=== PATIENT | female | born 1950 | race Caucasian/White ===

== ENCOUNTER → 2021-01-14 01:54 | Outpatient (CLI) | payer MEDICARE, SELFPAY ==
[2021-01-14 19:28] LABS: SARS-CoV-2 RNA PCR Negative
== END ==
PROVIDERS: PCP Nurse Practitioner Family; Visit Provider Internal Medicine Gastroenterology
DX: Z01.812 Encounter for preprocedural laboratory examination (principal); Z20.822 Contact with and (suspected) exposure to COVID-19
CPT/HCPCS: C9803; U0003; U0005

== ENCOUNTER 2021-01-17 01:29 | Day surgery (SDC) | payer MEDICARE, SELFPAY ==
[2020-12-30 13:07] VITALS: BMI 23.4
[2021-01-17 06:42] VITALS: BP 131/85; PULSE 95; RESP 20; TEMP 36.6; O2SAT 99; BMI 23.6
[2021-01-17] MEDS: LACTATED RINGERS 1,000 ML 150 ML IV CONT (06:54)
--- NOTE | 2021-01-17 07:37 | WPDANESEPPF ---
Anes - Initial Pre Proc Eval Procedure: Operation Date: 01/17/21 08:00 Proposed Procedures p Esophagogastroduodenoscopy & Screening Colonoscopy - Abrahan Leal MD Date/Time: 01/17/21 07:37 Surgeon: Abrahan Leal MD Pre Op Diagnosis: Neoplasm Screening, Gastritis Patient Data Age: 70 Gender: F Height: 5 ft 1 in Weight: 56.8 kg Last Vital Signs Temp 97.9 F 01/17/21 06:42 Pulse 95 01/17/21 06:42 Resp 20 01/17/21 06:42 BP 131/85 01/17/21 06:42 Pulse Ox 99 01/17/21 06:42 Allergies Allergy/AdvReac Type Severity Reaction Status Date / Time No Known Allergies Allergy Verified 01/17/21 06:41 Home Medications Medication Instructions Recorded Confirmed Type omeprazole 40 mg PO DAILY 12/30/20 12/30/20 History Patient hx anesthesia problems: none Family hx anesthesia problems: none [facility] Past Medical History Medical History (Updated 01/17/21 @ 07:35 by Michael Zaragoza MD) GERD (gastroesophageal reflux disease) Social History Social History Smoking status: Never smoker Alcohol intake: current Alcohol use details: SOCIALLY Substance use: unknown Substance use type: unknown Living arrangements: with family Spiritual care concerns: No Anes - Eval Final PreProcedure Day of Procedure 01/17/21 07:37 Patient weight: normal Heart: regular rate and rhythm Lungs: clear to auscultation Airway: Mallampati scale class II Neurological: alert and oriented Last oral intake: >/= 8 hours ASA classification: II Emergent: no Anesthetic plan: proceed Anesthesia type and monitoring: general GIVS and standard monitoring Informed Consent: The patient's anesthetic plan and its attendant risks and benefits were discussed with the patient/family/POA. Questions were solicited and answers provided to the satisfaction of the patient/family/POA.
--- NOTE | 2021-01-17 07:50 | PM.HPGS ---
History of Present Illness History of Present Illness Consent: Risks, benefits, and alternatives have been discussed and questions answered. Patient agrees to proceed with procedure. Chief complaint: Neoplasm Screening, Gastritis Narrative: Rosario Davila is a 70 year old female with more GERD using omeprazole, also colon polyps ~ 2 years ago. Review of Systems Constitutional: Constitutional: Denies headache(s) and Denies weakness Eyes: Eyes: Denies blurry vision ENT: Reports Normal hearing present, Denies headache(s) and Denies neck pain Cardiovascular: Cardiovascular: Denies chest pain and Denies dyspnea Respiratory: Respiratory: Denies dyspnea Gastrointestinal: Gastrointestinal: Reports no additional gastrointestinal complaints Genitourinary: Genitourinary: Denies dysuria Musculoskeletal: Musculoskeletal: Denies neck pain Integumentary/Breasts: Skin/Breast: Denies dry skin Neurologic: Reports Normal hearing present, Denies headache(s) and Denies weakness Psychiatric: Psychiatric: Denies anxiety Endocrine: Endocrine: Denies change in body appearance Hematologic/Lymphatic: Hematologic/Lymphatic: Denies easy bleeding Allergic/Immunologic: Allergic/Immunologic: Denies urticaria PMFSH Past Medical History Medical History (Updated 01/17/21 @ 07:50 by Abrahan Leal MD) Adenomatous colon polyp GERD (gastroesophageal reflux disease) Social History Social History Smoking status: Never smoker Alcohol intake: current Alcohol use details: SOCIALLY Substance use: unknown Substance use type: unknown Living arrangements: with family Spiritual care concerns: No Meds Home Medications and Allergies Home Medications Medication Instructions Recorded Confirmed Type omeprazole 40 mg PO DAILY 12/30/20 12/30/20 History Allergies Allergy/AdvReac Type Severity Reaction Status Date / Time No Known Allergies Allergy Verified 01/17/21 06:41 Vital Signs Vital Signs - 24 hr 01/17/21 06:42 Temperature 97.9 F Pulse Rate 95 Respiratory Rate 20 Blood Pressure 131/85 Pulse Oximetry 99 Exam Const: General: comfortable and no acute distress HENMT: General nose exam: Normal nares present Eyes: General: appearance normal, both eyes and all related structures Neck: Neck: no JVD Resp: Auscultation: clear to auscultation bilaterally Cardio: Rate: regular rate Rhythm: regular rhythm GI: Inspection: non-distended GI Palp: Yes Soft to palpation Skin: General skin exam: normal color Neuro: General: gait normal Speech: normal speech Extrem: General: normal to inspection Psych: Mental Status: mental status grossly normal Assessment and Plan Assessment and plan (1) GERD (gastroesophageal reflux disease): Code(s): K21.9 - Gastro-esophageal reflux disease without esophagitis Status: Inactive Assessment and Plan: egd (2) Adenomatous colon polyp: Code(s): D12.6 - Benign neoplasm of colon, unspecified Status: Acute Assessment and Plan: colonoscopy
[2021-01-17 08:28] VITALS: BP 116/74; PULSE 88; RESP 13; O2SAT 98
[2021-01-17 08:38] VITALS: BP 142/82; PULSE 81; RESP 17; O2SAT 100
[2021-01-17 08:48] VITALS: BP 129/81; PULSE 77; RESP 14; O2SAT 100
== END 2021-01-17 09:00 | disposition home or self-care (01) ==
PROVIDERS: PCP Nurse Practitioner Family; Visit Provider Internal Medicine Gastroenterology
PROC: 0DJ08ZZ Inspection of Upper Intestinal Tract, Via Natural or Artificial Opening Endoscopic (ICD-10-PCS; CPT 43235; principal; 2021-01-17 08:00)
DX: Z12.11 Encounter for screening for malignant neoplasm of colon (principal); K57.30 Diverticulosis of large intestine without perforation or abscess without bleeding; K64.8 Other hemorrhoids; K21.9 Gastro-esophageal reflux disease without esophagitis; K44.9 Diaphragmatic hernia without obstruction or gangrene; K29.50 Unspecified chronic gastritis without bleeding
CPT/HCPCS: 43239; G0105; 88305; C9803; J2001; J2704; J7120; U0003; U0005

== ENCOUNTER 2024-04-14 06:35 | Outpatient (CLI) | payer MEDICARE, SELFPAY ==
--- NOTE | ~2024-04-14 | CT_ITS ---
CT abdomen pelvis w con Ordering provider: Veronica Garcia APRN History: 73 years Female with . RLQ pain, umbilical pain . Comparison: None. Technique: CT abdomen and pelvis with IV and without oral contrast. Radiation reduction technique uti lized. DLP is 245.77 mGy. Findings: VISUALIZED LOWER CHEST: Multiple patchy opacities in the right lung bases suggestive of pneumonia. UPPER ABDOMINAL ORGANS: Liver: Normal. Gallbladder: Status post cholecystectomy. Spleen: Normal. Stomach/duodenum: Sliding hiatus hernia. Pancreas: Normal. Adrenals: Normal. Kidneys: Normal. PELVIC ORGANS: The bladder is normal. BOWEL AND MESENTERY: Colon: No evidence of diverticulitis. Fecal material is loaded in the colon. The appendix is not demo nstrated. Small Bowel: Normal. No obstruction. Peritoneum/mesentery: No free air or free fluid. No mesenteric lymphadenopathy. RETROPERITONEUM: Mild atheromatous disease of the abdominal aorta. No retroperitoneal lymphadenopat hy. Small para-aortic lymph nodes are noted. MUSCULOSKELETAL: Superficial soft tissues: The superficial soft tissues are normal. Bones: Age appropriate degenerative changes of the spine. Pubic symphysitis.Attempt of sacralization of L5 with pseudoarthrosis on the right side. IMPRESSION: 1. Sliding hiatus hernia. 2. Constipation. 3. No evidence of appendicitis, diverticulitis or intestinal obstruction. Reviewed, dictated and finalized at location A.
[2024-04-14 07:07] LABS: Estimated Glomerular Filt Rate > 60
== END 2024-04-14 06:36 | disposition home or self-care (01) ==
PROVIDERS: PCP Internal Medicine; Visit Provider Nurse Practitioner
DX: R10.31 Right lower quadrant pain (principal); R10.33 Periumbilical pain; K44.9 Diaphragmatic hernia without obstruction or gangrene; K59.00 Constipation, unspecified
CPT/HCPCS: 74177; Q9967

== ENCOUNTER 2024-04-17 07:18 | Day surgery (SDC) | payer MEDICARE, SELFPAY ==
[2024-04-11 10:35] VITALS: BMI 25.2
[2024-04-11 11:52] VITALS: BMI 24.5
[2024-04-17 08:10] VITALS: BP 144/85; PULSE 84; RESP 15; TEMP 36.5; O2SAT 100; BMI 24.9
[2024-04-17] MEDS: LACTATED RINGERS 1,000 ML 150 ML IV CONT (08:24)
--- NOTE | 2024-04-17 08:51 | WPDANESEPPF ---
Anes - Initial Pre Proc Eval Procedure: Operation Date: 04/17/24 09:30 Proposed Procedures p Esophagogastroduodenoscopy - Jhonny Enamorado MD Date/Time: 04/17/24 08:51 Surgeon: Jhonny Enamorado MD Pre Op Diagnosis: Diaphragmatic hernia w/o obstruction or Patient Data Age: 73 Gender: F Height: 1.55 m Weight: 59.8 kg Last Vital Signs Temp 36.5 C 04/17/24 08:10 Pulse 84 04/17/24 08:10 Resp 15 04/17/24 08:10 BP 144/85 H 04/17/24 08:10 Pulse Ox 100 04/17/24 08:10 O2 Del Method Room Air 04/17/24 08:10 Allergies Allergy/AdvReac Type Severity Reaction Status Date / Time No Known Allergies Allergy Verified 04/17/24 08:05 Home Medications Medication Instructions Recorded Confirmed Type dexlansoprazole 60 mg 60 mg PO DAILY #30 caps 04/07/24 04/17/24 Rx capsule,biphase delayed release (Dexilant) famotidine 20 mg tablet 20 mg PO QHS 04/07/24 04/17/24 History ergocalciferol (vitamin D2) 1,250 50,000 unit PO WEEKLY 04/11/24 04/17/24 History mcg (50,000 unit) capsule Patient hx anesthesia problems: none Family hx anesthesia problems: none Results Review: All pre-operative results and documents have been reviewed as part of the pre-operative evaluation. [facility] Past Medical History Medical History Adenomatous colon polyp GERD (gastroesophageal reflux disease) Hiatal hernia Social History Social History Smoking status: Never smoker Alcohol intake: current Alcohol use details: SOCIALLY Substance use: never Substance use type: does not use Living arrangements: with family Spiritual care concerns: No Anes - Eval Final PreProcedure Day of Procedure 04/17/24 08:51 Patient weight: normal Heart: regular rate and rhythm Lungs: clear to auscultation Airway: Mallampati scale class II Neurological: alert and oriented Last oral intake: >/= 8 hours ASA classification: II Emergent: no Anesthetic plan: proceed Anesthesia type and monitoring: general GIVS and standard monitoring Results Review: All pre-operative results and documents have been reviewed as part of the pre-operative evaluation. Informed Consent: The patient's anesthetic plan and its attendant risks and benefits were discussed with the patient/family/POA. Questions were solicited and answers provided to the satisfaction of the patient/family/POA.
--- NOTE | 2024-04-17 09:08 | WPDHPUPDATE1 ---
History and Physical Update Update Date/Time: 04/17/24 09:08 History and Physical has been reviewed, including an updated exam of the patient. There are NO changes in the patient's condition. Risks, benefits, and alternatives have been discussed and questions answered. Patient agrees to proceed with procedure.
[2024-04-17 10:37] VITALS: BP 111/75; PULSE 86; RESP 16; O2SAT 99
[2024-04-17 10:47] VITALS: BP 116/73; PULSE 77; RESP 15; O2SAT 100
[2024-04-17 10:57] VITALS: BP 132/82; PULSE 72; RESP 14; O2SAT 100
--- NOTE | 2024-04-17 11:00 | WPDANESPN ---
Anes - Prog Note Post-Op Date/Time: 04/17/24 11:00 Cardiovascular status: normal Respiratory status: normal Airway patency: baseline Mental status: baseline Post-Op hydration status: normal Vital Signs: Last Vital Signs Temp 36.5 C 04/17/24 08:10 Pulse 77 04/17/24 10:47 Resp 15 04/17/24 10:47 BP 116/73 04/17/24 10:47 Pulse Ox 100 04/17/24 10:47 O2 Del Method Room Air 04/17/24 10:47 Pain Score (VAS): 0/10 I/O: Intake & Output 04/16/24 04/17/24 04/17/24 23:59 07:59 15:59 Intake Total 200 Balance 200 Patient Feedback: Patient satisfied with anesthetic care.
== END 2024-04-17 11:03 | disposition home or self-care (01) ==
PROVIDERS: PCP Internal Medicine; Visit Provider Internal Medicine Gastroenterology
PROC: 0DJ08ZZ Inspection of Upper Intestinal Tract, Via Natural or Artificial Opening Endoscopic (ICD-10-PCS; CPT 43235; principal; 2024-04-17 09:30)
DX: K21.9 Gastro-esophageal reflux disease without esophagitis (principal); K44.9 Diaphragmatic hernia without obstruction or gangrene
CPT/HCPCS: 43239

== ENCOUNTER 2025-02-17 12:12 | Outpatient (CLI) | payer MEDICARE, SELFPAY ==
--- OUTSIDE RECORDS SUMMARY | 2025-02-17 13:56 | XMS_ITS | Clinical Summary ---
Author Organization [facility] [place] Chetan lexii Dunn Address [address] [place] [address] Care Team Providers Care Excel Expert Name Role Phone Juliocesar Leal MD Primary Care Provider Allergies No known active allergies Medications esomeprazole (NexIUM) 40 mg Capsule, Delayed Release(E.C.) Take 40 mg by mouth daily. Active atorvastatin (LIPITOR) 40 mg tablet Take 40 mg by mouth daily. Active famotidine (PEPCID) 40 mg tablet Take 40 mg by mouth daily. 05/24/2023 Active sucralfate (CARAFATE) 1 gram tablet Take 1 Tablet by mouth 3 times daily. 02/06/2025 Active oxyBUTYnin (DITROPAN XL) 10 mg Extended Release 24 hour tablet Take 1 Tablet by mouth daily. 12/11/2024 Active Encounters Date Type Department Care Team Description 02/17/2025 11:30 AM CDT Office Visit [facility] [place] Oncology and Hematology - [place] [address] [place] [address] Jacqui Pink MD Macrocytosis (Primary Dx); Other secondary thrombocytopenia; Splenomegaly, not elsewhere classified from Last 3 Months Family History Medical History Relation Name Comments No Known Problems Child 1 No Known Problems Child 2 Diabetes Father Stomach Cancer Father Heart Disease Mother Diabetes Sister Relation Name Status Comments Child 1 Alive Child 2 Alive Father Mother Sister Alive Social History Tobacco Use Types Packs/Day Years Used Date Smoking Tobacco: Never Smokeless Tobacco: Never Tobacco Cessation:Counseling Given: Not Answered Alcohol Use Standard Drinks/Week Comments Yes 0 (1 standard drink = 0.6 oz pur e alcohol) Occasionally Comments Unknown Sex and Gender Information Value Date Recorded Sex Assigned at Not on file 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 Gender Identity Not on file Sexual Orientation Not on file Last Filed Vital Signs Vital Sign Reading Time Taken Comments Blood Pressure 122/77 02/17/2025 11:11 AM CDT Pulse 76 02/17/2025 11:11 AM CDT Temperature 36.8 C (98.3 F) 02/17/2025 11:11 AM CDT Respiratory Rate 16 02/17/2025 11:11 AM CDT Oxygen Saturation 97% 02/17/2025 11:11 AM CDT Inhaled Oxygen Concentration - - Weight 62.3 kg (137 lb 6.4 oz) 02/17/2025 11:11 AM CDT Height 152.4 cm (5') 02/17/2025 11:11 AM CDT Body Mass Index 26.83 02/17/2025 11:11 AM CDT Plan of Treatment Upcoming Encounters Date Type Department Care Team (Late st Contact Info) Description 04/21/2025 11:15 AM CDT Office Visit [facility] [place] On[facility] and Hematology - [place] [address] [facility] [address] [place] [address] Lex Ferguson MD [address] [facility] [address] [place] [address] Health Maintenance Due Date Last Done Comments DTAP/TDAP/TD VACCINES (1 - Tdap) 1970 BREAST CANCER SCREENING 1991 COLORECTAL SCREENING 1996 Colorectal Cancer Screening 1996 FIT-DNA Q 3 years 1996 FIT/FOBT Q 1 year 1996 Flex Sig/CT Colonography Q 5 years 1996 PNEUMOCOCCAL VACCINE 50+ YEARS (1 of 1 - PCV) 08/20/20 ZOSTER VACCINE (1 of 2) 2001 OSTEOPOROSIS SCREENING 2016 INFLUENZA VACCINE (#1) 2024 RSV VACCINE (60+ or ) (1 - 1-dose 75+ series) 2026 Insurance [facility] [id number] Care Teams Excel Expert Relationship Specialty Start Date End Date Juliocesar Leal MD [address] [place] [phone] PCP - General Internal Medicine 12/15/24
--- OUTSIDE RECORDS SUMMARY | 2025-02-17 13:56 | XMS_ITS | Encounter Summary ---
Author Organization [facility] Address [address] [place] [address] Care Team Providers Care Vacation Planner Name Role Phone Juliocesar Leal MD Primary Care Provider Reason for Referral * Radiology Services (Routine) - Closed Specialty Diagnoses / Procedures Referred By Contac t Referred To Contact Diagnoses Macrocytosis Other secondary thrombocytopenia Splenomegaly, not elsewhere classified Procedures US ABDOMEN COMPLETE Jacqui Pink MD [address] [place] [address] Phone: tel: fax: [place] [phone] Referral ID Status Reason Start Date Expiration Date V isits Requested Visits Authorized [id number] Closed [facility] CTS 02/17/2025 03/20/2026 1 1 Encounter Details Date Type Department Care Team (Late st Contact Info) Description 02/17/2025 11:30 AM CDT Office Visit [facility] Oncology and Hematology [facility] [address] [place] [address] Jacqui Pink MD [address] [place] [address] Macrocytosis (Primary Dx); Other secondary thrombocytopenia; Splenomegaly, not elsewhere classified Social History Tobacco Use Types Packs/Day Years Used Date Smoking Tobacco: Never Smokeless Tobacco: Never Tobacco Cessation:Counseling Given: Not Answered Alcohol Use Standard Drinks/Week Comments Yes 0 (1 standard drink = 0.6 oz pur e alcohol) Occasionally Comments Unknown Sex and Gender Information Value Date Recorded Sex Assigned at Not on file 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 Sex 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 Gender Identity Not on file Sexual Orientation Not on file documented as of this encounter Last Filed Vital Signs Vital Sign Reading [...] Mass Index 26.83 02/17/2025 11:11 AM CDT documented in this encounter Plan of Treatment Upcoming Encounters Date Type Department Care Team (Late st Contact Info) Description 04/21/2025 11:15 AM CDT Office Visit [facility] Oncology and Hematology - [place] [address] [facility] [address] [place] [address] Lex Ferguson MD [address] [facility] [address] [place] [address] Scheduled Orders Name Type Priority Associated Diagnoses Orde r Schedule CBC WITH DIFFERENTIAL Lab Stat Other secondary thrombocytopenia Expected: 02/17/2025, Expires: 02/17/2026 COMPREHENSIVE METABOLIC PANEL Lab Routine Other secondary thrombocytopenia Ordered: 02/17/2025 VITAMIN B12 AND FOLATE Lab Routine Other secondary thrombocytopenia Expected: 02/17/2025, Expires: 02/17/2026 PROTEIN ELECTROPHORESIS W/REFLEX,SERUM Lab Routine Macrocytosis Ordered: 02/17/2025 US ABDOMEN COMPLETE Imaging Routine Macrocytosis Other secondary thrombocytopenia Splenomegaly, not elsewhere classified 1 Occurrences starting 02/17/2025 until 02/17/2026 documented as of this encounter Visit Diagnoses Diagnosis Macrocytosis- Primary Other specified diseases of blood and blood-forming organs Other secondary thrombocytopenia Splenomegaly, not elsewhere classified documented in this encounter Care Teams Vacation Planner Relationship Specialty Start Date End Date Juliocesar Leal MD [address] [facility] [address] [phone] PCP - General Internal Medicine 12/15/24 documented as of this encounter
--- OUTSIDE RECORDS SUMMARY | 2025-02-17 13:56 | XMS_ITS | Clinical Summary ---
Author Organization [facility] Address [address] [place] [address] Care Team Providers Care Distribution Center Supervisor Name Role Phone Unavailable Primary Care Provider Unavailabl e Social History Tobacco Use Types Packs/Day Years Used Date Smoking Tobacco: Never Assessed Comments Unknown Sex and Gender Information Value Date Recorded Sex Assigned at Not on file Legal Sex Female 8:27 PM CDT Gender Identity Not on file Sexual Orientation Not on file Plan of Treatment Health Maintenance Due Date Last Done Comments Colorectal Cancer Screening Colonoscopy (10 Years) 1951 Hepatitis C 1969 DTaP, Tdap and Td Vaccines ( 1 - Tdap) 1970 Mammogram Screening 1991 Pneumococcal Vaccine: 50+ Ye ars (1 of 1 - PCV) 2001 Zoster Vaccines (1 of 2) 2001 Dexa Scan (General) 2016 COVID-19 Vaccine (2023-2 5 season) 2024 RSV Immunization or 60+ Years (1 - 1-dose 75+ series) 2026 Meningococcal B Vaccine Aged Out No l onger eligible based on patient's age to complete this topic Meningococcal Vaccine Aged Out No lamberto darrel eligible based on patient's age to complete this topic RSV Immunizations Under 20 Months Aged Out No longer eligible based on patient's age to complete this topic
--- OUTSIDE RECORDS SUMMARY | 2025-02-17 13:57 | XMS_ITS | Data Portability ---
Author Organization [facility], Main Office Address [address] [place] [address] Care Team Providers Care Clin Tech Name Role Phone CHRIS MOORE Primary Care Provider CHRIS MOORE Referring Provider [phone] Assessment Encounter Date Assessment Date Assessment LastModified by Organization Details LastModified Time 08/11/2024 08/11/2024 05/29/2024: Chol 218 MCV 101.0 Not available 08/11/2024 17:13:46 12/02/2024 12/02/2024 05/29/2024: Chol 218 MCV 101.0 11/24/2024: Chol 146<-chol 218 MCV 100.8, PLT 115 Not available 12/02/2024 11:41:33 Plan of Treatment Reminders Order Date Submit Date Provider Last Modified By Organization Details Last Modified Time Details Appointments Any 15 2024 10:00A M Juliocesar adkins MD Not available Not available Not available Lab lipid panel, serum [address] (Lab), [address] [place], [address], 01/14/2025 09:21:41 CBC w/ auto diff [email or web address] (Lab), [address] [place], [address], 01/14/2025 09:21:50 TSH, serum or plasma [address] (Lab), [address] [place], [address], 01/14/2025 09:21:58 CMP, serum or plasma [address] (Lab), [address] [place], [address], 01/14/2025 09:22:09 vitamin D, 25-hydrox y, total, serum [address] (Lab), [address] [place], [address], 01/14/2025 09:22:19 vitamin B12 + folate, serum or blood [address] (Lab), [address] [place], [address], 01/14/2025 09:22:30 urinalysi s complete, reflex culture [address] (Lab), [address] [place], [address], 08/18/2024 17:19:40 urinalysi s, dipstick 2023 024 [email or web address] [facility] [place] [facility] [address], [place], [address], 08/11/2024 17:42:37 lipid panel, serum 2023 024 [facility] (Lab), [address] [place], [address], 11/26/2024 12:39:50 CBC w/ auto diff 2023 024 [facility] (Lab), [address] [place], [address], 11/26/2024 12:39:46 TSH, serum or plasma 2023 024 [facility] (Lab), [address] [place], [address], 11/26/2024 12:39:48 CMP, serum or plasma 2023 024 [facility] (Lab), [address] [place], [address], 11/26/2024 12:39:44 vitamin D, 25-hydrox y, total, serum 2023 024 [facility] (Lab), [address] [place], [address], 11/26/2024 12:39:49 vitamin B12 + folate, serum or blood 2023 024 [facility] (Lab), [address] [place], [address], 11/26/2024 12:39:47 lipid panel, serum 2023 024 [facility] (Lab), [address] [place], [address], 05/29/2024 17:50:49 CBC w/ auto diff 2023 024 [facility] (Lab), [address] [place], [address], 05/29/2024 17:42:20 TSH, serum or plasma 2023 024 [facility] (Lab), [address] [place], [address], 05/29/2024 19:03:17 CMP, serum or plasma 2023 024 [facility] (Lab), [address] [place], [address], 05/29/2024 17:50:55 vitamin D, 25-hydrox y, total, serum [address] (Lab), [address] [place], [address], 06/11/2024 14:31:01 vitamin B12 + folate, serum or blood [address] (Lab), [address] [place], [address], 06/11/2024 14:31:01 Referral hematolog ist referral 2024 025 [email or web address] Lex Ferguson MD, [address], [place], [address], 01/06/2025 09:25:22 cardiolog ist referral - Please call patient to schedule an appointme nt. Thank you. 2024 025 [email or web address] [place], [address] [facility], [place] [address], [address], 01/06/2025 09:25:09 gastroent erologist referral 2024 025 [email or web address] Maria L Yancey MD, [address], [place], [address], 12/05/2024 10:58:23 urologist referral - Please call patient to schedule an appointme nt. Thank you. 2024 025 [email or web address] Chaparro Parnell MD, [address] [facility] [address], [place], [address], 01/06/2025 09:24:57 gastroent erologist referral 2023 024 Maria L Yancey MD, [address], [place], [address], 09/09/2024 11:24:43 urologist referral 2023 024 [email or web address] 2 Chaparro Parnell MD, [address] [facility] [address], [place], [address], 02/09/2025 09:18:32 gastroent erologist referral 2023 024 stanford Yancey MD, [address], [place], [address], 07/03/2024 09:19:42 urologist referral 2023 024 stanford Parnell MD, [address] [facility] [address], [place], [address], 01/06/2025 09:24:23 Procedures None recorded. Surgeries None recorded. Imaging MAMMO, screening , digital, bilateral - Please call patient to schedule. Patient prefers [facility] location* * [address] Patient Access Centralized Scheduling, Centralized Scheduling, [address] [facility], [place], [address], 01/07/2025 11:07:08 MAMMO, screening , digital, bilateral [address] ([facility] Call Scheduling), [address] [place], [address], 08/13/2024 10:52:40 MAMMO, screening , digital, bilateral [address] ([facility] Call Scheduling), [address] [place], [address], 06/26/2024 09:20:38 DEXA, axial skeleton 2023 024 [facility] ([facility] Call Scheduling), [address] [place], [address], 06/04/2024 16:18:50 Medication Orders Voquezna 20 mg tablet 2023 024 [id number], [address], [place], [place], [id number], 08/11/2024 17:09:38 Patient TargetsNo targets recorded. Patient Instructions Encounter Date Encounter Id Patient Instructions Last Modified By Organization Details Last Modified Time 05/12/2024 [id number] statins information [email or web address] Not available 07/16/2024 18:31:19 Reason for Referral Urologist Referral for Urina ry incontinence Referring Physician: Juliocesar Leal Internal Medicine, Encounter Date: 05/29/2024 Flat Finisher Referral for Conde's esophagus Referring Physician: Tika Bailey Medicine, Encounter Date: 05/29/2024 Urologist Referral for Urina ry incontinence Referring Physician: Tika Bailey Medicine, Encounter Date: 08/11/2024 Flat Finisher Referral for Conde's esophagus Referring Physician: Tika Bailey Medicine, Encounter Date: 08/11/2024 Urologist Referral for Urina ry incontinence Please call patient to schedule an appointment. Thank you. Referring Physician: Tika Bailey Medicine, Encounter Date: 12/02/2024 Flat Finisher Referral for Conde's esophagus Referring Physician: Tika Bailey Medicine, Encounter Date: 12/02/2024 Delivery Clerk Referral for Sc reening for cardiovascular system disease Please call patient to schedule an appointment. Thank you. Referring Physician: Tika Bailey, Encounter Date: 12/02/2024 Referring Physician: Tika Bailey, Encounter Date: 12/02/2024 Results Created Date Observation Date Name Description Value Unit Range Abnormal Flag Note LastModifiedBy Organization Detail LastModifiedTime 05/29/20 24 05/29/2024 CBC/C OMPLE TE BLD COUNT W/DIF F white blood cells 6.9 x10'3 /uL 4.2-10 .8 Not Available [facility] (Lab) [address] [place], [address], 05/29/2024 17:42:20 05/29/20 24 05/29/2024 CBC/C OMPLE TE BLD COUNT W/DIF F red blood cells 4.15 x10'6 /uL 3.80-5 .20 Not Available [facility] (Lab) [address] [place], [address], 05/29/2024 17:42:20 05/29/20 24 05/29/2024 CBC/C OMPLE TE BLD COUNT W/DIF F hemoglobin 13.4 g/dL 12.0-1 5.6 Not Available [facility] (Lab) [address] [place], [address], 05/29/2024 17:42:20 05/29/20 24 05/29/2024 CBC/C OMPLE TE BLD COUNT W/DIF F hematocrit 41.9 % 35.7-4 5.7 Not Available [facility] (Lab) [address] [place], [address], 05/29/2024 17:42:20 05/29/20 24 05/29/2024 CBC/C OMPLE TE BLD COUNT W/DIF F mean red cell volume 101.0 fL 82.0-9 9.0 high Not Available [facility] (Lab) [address] [place], [address], 05/29/2024 17:42:20 05/29/20 24 05/29/2024 CBC/C OMPLE TE BLD COUNT W/DIF F mean red cell hemoglobin 32.3 pg 27.0-3 3.0 Not Available [facility] (Lab) [address] [place], [address], 05/29/2024 17:42:20 05/29/20 24 05/29/2024 CBC/C OMPLE TE BLD COUNT W/DIF F mean RBC HGB concentratio n 32.0 g/dL 31.0-3 6.0 Not Available [facility] (Lab) [address] [facility] [place], [address], 05/29/2024 17:42:20 05/29/20 24 05/29/2024 CBC/C OMPLE TE BLD COUNT W/DIF F red cell distribution width 13.3 % 11.8-1 5.5 Not Available [facility] (Lab) [address] [facility] [facility] [place], [address], 05/29/2024 17:42:20 05/29/20 24 05/29/2024 CBC/C OMPLE TE BLD COUNT W/DIF F platelets 152 x10'3 /uL 150-40 0 Not Available [facility] (Lab) [address] [facility] [facility] [place], [address], 05/29/2024 17:42:20 05/29/20 24 05/29/2024 CBC/C OMPLE TE BLD COUNT W/DIF F neutrophils 54.8 % 39.0-7 2.0 Not Available [facility] (Lab) [address] [place], [address], 05/29/2024 17:42:20 05/29/20 24 05/29/2024 CBC/C OMPLE TE BLD COUNT W/DIF F lymphocytes 28.7 % 16.0-4 7.0 Not Available [facility] (Lab) [address] [place], [address], 05/29/2024 17:42:20 05/29/20 24 05/29/2024 CBC/C OMPLE TE BLD COUNT W/DIF F monocytes 10.6 % 5.0-12 .0 Not Available [facility] (Lab) [address] [place], [address], 05/29/2024 17:42:20 05/29/20 24 05/29/2024 CBC/C OMPLE TE BLD COUNT W/DIF F eosinophils 3.9 % 1.0-7. 0 Not Available [facility] (Lab) [address] [place], [address], 05/29/2024 17:42:20 05/29/20 24 05/29/2024 CBC/C OMPLE TE BLD COUNT W/DIF F basophils 1.7 % 0.0-2. 0 Not Available [facility] (Lab) [address] [place], [address], 05/29/2024 17:42:20 05/29/20 24 05/29/2024 CBC/C OMPLE TE BLD COUNT W/DIF F immature granulocytes 0.3 % 0.00-0 .50 Not Available [facility] (Lab) [address] [place], [address], 05/29/2024 17:42:20 05/29/20 24 05/29/2024 CBC/C OMPLE TE BLD COUNT W/DIF F neutrophils, absolute count 3.78 x10'3 /uL 1.5-8. 0 Not Available [facility] (Lab) [address] [place], [address], 05/29/2024 17:42:20 05/29/20 24 05/29/2024 CBC/C OMPLE TE BLD COUNT W/DIF F lymphocytes, absolute count 1.98 x10'3 /uL 1.07-3 .43 Not Available [facility] (Lab) [address] [place], [address], 05/29/2024 17:42:20 05/29/20 24 05/29/2024 CBC/C OMPLE TE BLD COUNT W/DIF F monocytes, absolute count 0.73 x10'3 /uL 0.29-0 .99 Not Available [facility] (Lab) [address] [place], [address], 05/29/2024 17:42:20 05/29/20 24 05/29/2024 CBC/C OMPLE TE BLD COUNT W/DIF F eosinophils, absolute count 0.27 x10'3 /uL 0.02-0 .53 Not Available [facility] (Lab) [address] [place], [address], 05/29/2024 17:42:20 05/29/20 24 05/29/2024 CBC/C OMPLE TE BLD COUNT W/DIF F basophils, absolute count 0.12 x10'3 /uL 0.01-0 .08 high Not Available [facility] (Lab) [address] [place], [address], 05/29/2024 17:42:20 05/29/20 24 05/29/2024 CBC/C OMPLE TE BLD COUNT W/DIF F immature granulocytes ,absolute 0.02 x10'3 /uL 0.00-0 .05 Not Available [facility] (Lab) [address] [place], [address], 05/29/2024 17:42:20 05/29/20 24 05/29/2024 CBC/C OMPLE TE BLD COUNT W/DIF F nucleated red blood cells 0.0 % -0 Not Available [facility] (Lab) [address] [place], [address], 05/29/2024 17:42:20 05/29/20 24 05/29/2024 CBC/C OMPLE TE BLD COUNT W/DIF F NRBC# 0.00 x10'3 /uL Not Available [facility] (Lab) [address] [place], [address], 05/29/2024 17:42:20 05/29/20 24 05/29/2024 LIPID PANEL cholesterol 218 mg/dL 140-19 9 high NIH KRISTY NSUS RECOM MENDA TION FOR JONATHAN STERO L: ADULT CHILD LOW RISK: <200 <170 BORDE RLINE : <200- 239 ----- HIGH RISK: >240 >200 Not Available [facility] (Lab) [address] [place], [address], 05/29/2024 17:50:49 05/29/20 24 05/29/2024 LIPID PANEL triglyceride s 76 mg/dL 0-150 NIH KRISTY NSUS REPOR T RECOM MENDA TION FOR TRIGL YCERI FERNY: ADULT CHILD LOW RISK: <150 ----- BODER LINE: 150-1 99 ----- HIGH RISK: >200 ----- Not Available [facility] (Lab) [address] [place], [address], 05/29/2024 17:50:49 05/29/20 24 05/29/2024 LIPID PANEL HDL cholesterol 107 mg/dL 40- Not Available [facility] (Lab) [address] [place], [address], 05/29/2024 17:50:49 05/29/20 24 05/29/2024 LIPID PANEL LDL cholesterol, calculated 96 mg/dL 0-130 NIH KRISTY NSUS REPOR T RECOM MENDA TIONS FOR LDL: ADULT CHILD LOW RISK <130 <110 (OPTI MAL LDL) <100 ----- BORDE RLINE : 130-1 59 ----- HIGH RISK: >160 >130 A TRIGL YCERI DE RESUL T >400 INVAL IDATE S THE CALCU LATIO N FOR LDL FRACT IONAT ION - THE LDL RESUL T WILL NOT BE REPOR KAPIL. Not Available [facility] (Lab) [address] [place], [address], 05/29/2024 17:50:49 05/29/20 24 05/29/2024 COMPR EHENS BOLIVAR METAB OLIC PANEL sodium 140 mmol/ L 137-14 5 Not Available [facility] (Lab) [address] [place], [address], 05/29/2024 17:50:55 05/29/20 24 05/29/2024 COMPR EHENS BOLIVAR METAB OLIC PANEL potassium 4.3 mmol/ L 3.5-5. 1 Not Available [facility] (Lab) [address] [place], [address], 05/29/2024 17:50:55 05/29/20 24 05/29/2024 COMPR EHENS BOLIVAR METAB OLIC PANEL chloride 107 mmol/ L 98-107 Not Available [facility] (Lab) [address] [place], [address], 05/29/2024 17:50:55 05/29/20 24 05/29/2024 COMPR EHENS BOLIVAR METAB OLIC PANEL carbon dioxide 24 mmol/ L 22-30 Not Available [facility] (Lab) [address] [place], [address], 05/29/2024 17:50:55 05/29/20 24 05/29/2024 COMPR EHENS BOLIVAR METAB OLIC PANEL anion gap 13.3 mmol/ L 14-22 low Not Available [facility] (Lab) [address] [place], [address], 05/29/2024 17:50:55 05/29/20 24 05/29/2024 COMPR EHENS BOLIVAR METAB OLIC PANEL glucose 93 mg/dL 70-99 Not Available [facility] (Lab) [address] [place], [address], 05/29/2024 17:50:55 05/29/20 24 05/29/2024 COMPR EHENS BOLIVAR METAB OLIC PANEL BUN 13 mg/dL 8-19 Not Available [facility] (Lab) [address] [place], [address], 05/29/2024 17:50:55 05/29/20 24 05/29/2024 COMPR EHENS BOLIVAR METAB OLIC PANEL creatinine 0.78 mg/dL 0.66-1 .25 Not Available [facility] (Lab) [address] [place], [address], 05/29/2024 17:50:55 05/29/20 24 05/29/2024 COMPR EHENS BOLIVAR METAB OLIC PANEL GFR >60 Refer ence Range : Mckittrick ge GFR Healt hy Adult : >60 mL/mi n/1.7 3 m2 Chron ic Kidne y Disea se: 15-60 mL/mi n/1.7 3 m2 Kidne y Failu re: <15/m L/min /1.73 m2 www.n iddk. nih.g ov The MDRD study equat ion has not been valid ated in child hussein <18 years of age; pregn ant women ; the elder ly >85 years of age; or in some racia l or ethni c subgr oups, such as Hispa nics. Outsi de the valid ated vickey eters , estim ated GFR is less accur ate, requi ring clini gary judgm ent on a case- by-ca se basis . Clini gary inter preta tion for other races and ages must be made by the clini bret. The MDRD study equat ion has not been valid ated for the evalu ation of serum creat inine relat ed to nutri rangel l statu s or medic ation usage . For perso ns <18 years of age, a pedia tric GFR calcu lator is avail able on the [facility] websi te: https ://meche w.abdiel martin.o rg/pr snehaess ional s/kdo qi/gf r_cal culat or Not Available [facility] (Lab) [address] [place], [address], 05/29/2024 17:50:55 05/29/20 24 05/29/2024 COMPR EHENS BOLIVAR METAB OLIC PANEL alkaline phosphatase 96 U/L 38-126 Not Available [facility] (Lab) [address] [place], [address], 05/29/2024 17:50:55 05/29/20 24 05/29/2024 COMPR EHENS BOLIVAR METAB OLIC PANEL alanine aminotransfe rase 18 U/L 0-35 Not Available [facility] (Lab) [address] [place], [address], 05/29/2024 17:50:55 05/29/20 24 05/29/2024 COMPR EHENS BOLIVAR METAB OLIC PANEL aspartate aminotransfe rase 30 U/L 15-37 Not Available [facility] (Lab) [address] [place], [address], 05/29/2024 17:50:55 05/29/20 24 05/29/2024 COMPR EHENS BOLIVAR METAB OLIC PANEL bilirubin, total 0.80 mg/dL 0.20-1 .30 Not Available [facility] (Lab) [address] [place], [address], 05/29/2024 17:50:55 05/29/20 24 05/29/2024 COMPR EHENS BOLIVAR METAB OLIC PANEL calcium 9.9 mg/dL 8.4-10 .2 Not Available [facility] (Lab) [address] [place], [address], 05/29/2024 17:50:55 05/29/20 24 05/29/2024 COMPR EHENS BOLIVAR METAB OLIC PANEL total protein 7.9 g/dL 6.3-8. 2 Not Available [facility] (Lab) [address] [place], [address], 05/29/2024 17:50:55 05/29/20 24 05/29/2024 COMPR EHENS BOLIVAR METAB OLIC PANEL albumin 4.6 g/dL 3.0-4. 4 high Not Available [facility] (Lab) [address] [place], [address], 05/29/2024 17:50:55 05/29/20 24 05/29/2024 COMPR EHENS BOLIVAR METAB OLIC PANEL globulin 3.3 g/dL 2.6-4. 2 Not Available [facility] (Lab) [address] [place], [address], 05/29/2024 17:50:55 05/29/20 24 05/29/2024 COMPR EHENS BOLIVAR METAB OLIC PANEL A/G ratio 1.4 ratio 1.0-2. 0 Not Available [facility] (Lab) [address] [place], [address], 05/29/2024 17:50:55 05/29/20 24 05/29/2024 VITAM IN D 25-HY DROXY vd25oh 50.3 NG/mL 30-100 Vitam in D Statu s: Defic ient: <20 ng/mL Insuf ficie nt: 20-29 ng/mL Suffi cient : 30-10 0 ng/mL Not Available [facility] (Lab) [address] [place], [address], 05/29/2024 18:01:12 05/29/2005/29/2024 VITAM IN B12 (KENNETH MARIBEL ) vb12 357 pg/mL 239-93 1 Not Available [facility] (Lab) [address] [place], [address], 05/29/2024 18:47:45 05/29/20 24 05/29/2024 FOLAT E, SERUM /PLAS MA folate 13.1 NG/mL 2.76-2 0.0 Not Available [facility] (Lab) [address] [place], [address], 05/29/2024 18:47:50 05/29/20 24 05/29/2024 TSH W/REF AGATA FT4 TSH with reflex free T4 1.080 uIU/m L 0.465- 4.680 Not Available [facility] (Lab) [address] [place], [address], 05/29/2024 19:03:17 08/11/2008/11/2024 urina lysis , dipst ick Leukocytes (reference range: negative royal/ l) Small Not Available [address], [place], [address], 08/11/2024 17:33:27 08/11/2008/11/2024 urina lysis , dipst ick Nitrite (reference rage: negative mg/dl) positi ve Not Available [address] [place], [address], 08/11/2024 17:33:27 08/11/2008/11/2024 urina lysis , dipst ick Urobilinogen (reference range: 0.2-1 mg/dl) 0.2 Not Available [address], [place], [address], 08/11/2024 17:33:27 08/11/20 24 08/11/2024 urina lysis , dipst ick Protein (reference range: negative mg/dl) Trace Not Available [address] [place] [address], [place], [address], 08/11/2024 17:33:27 08/11/2008/11/2024 urina lysis , dipst ick pH (reference range: 5-7) 6.0 Not Available [address] [place] [address], [place], [address], 08/11/2024 17:33:27 08/11/20 24 08/11/2024 urina lysis , dipst ick Blood (reference range: negative Patrick/ l) Small Not Available [address] [place] [address], [place], [address], 08/11/2024 17:33:27 08/11/2008/11/2024 urina lysis , dipst ick Specific Delmar (reference range: 1.005-1.030) 1.005 Not Available [address] [place] [address], [place], [address], 08/11/2024 17:33:27 08/11/2008/11/2024 urina lysis , dipst ick Ketone (reference range: negative mg/dl) Negati ve Not Available [address] [place], [place], [address], 08/11/2024 17:33:27 08/11/2008/11/2024 urina lysis , dipst ick Bilirubin (reference range: negative mg/dl) Negati ve Not Available [address] [place], [place], [address], 08/11/2024 17:33:27 08/11/2008/11/2024 urina lysis , dipst ick Glucose (reference range: negative mg/dl) Negati ve Not Available [address] [place], [place], [address], 08/11/2024 17:33:27 08/11/2008/11/2024 urina lysis , dipst ick Appearance Clear Not Available [address] [place], [place], [address], 08/11/2024 17:33:27 08/11/2008/11/2024 urina lysis , dipst ick Color Pale Yellow Not Available [address], [place], [address], 08/11/2024 17:33:11/24/1911/25/2024 LIPID PANEL , STAND NOMI cholesterol, total 146 mg/dL <200 normal Not Available [place] [address] [place], [address], 11/25/2024 06:38:54 11/24/1911/25/2024 LIPID PANEL , STAND NOMI HDL cholesterol 84 mg/dL > or = 50 normal Not Available [address] [address] [place], [address], 11/25/2024 06:38:54 11/24/1911/25/2024 LIPID PANEL , STAND NOMI triglyceride s 68 mg/dL <150 normal Not Available [address] [address] [place], [address], 11/25/2024 06:38:54 11/24/1911/25/2024 LIPID PANEL , STAND NOMI LDL-choleste rol 48 mg/dL _(gary c) normal Refer ence range : <100 Bandar able range <100 mg/dL for prima ry preve ntion ; <70 mg/dL for patie nts with CHD or diabe tic patie nts with > or = 2 CHD risk facto rs. LDL-C is now calcu lated using the Cheri n-Hop kins calcu cindy n, which is a valid ated novel metho d provi ding ranjit r accur acy than the Fried camden equat ion in the estim ation of LDL-C . Cheri martinez SS et al. CARLOS. 2013; 310(1 9): 2061- 2068 (http ://ed ucati on.Qu Ryan Gojimos. com/f aq/FA Q164) Not Available [facility] [address] [address] [place], [address], 11/25/2024 06:38:54 11/24/1911/25/2024 LIPID PANEL , STAND NOMI chol/HDLC ratio 1.7 (calc ) <5.0 normal Not Available [address] [address] [place], [address], 11/25/2024 06:38:54 11/24/1911/25/2024 LIPID PANEL , STAND NOMI non HDL cholesterol 62 mg/dL _(gary c) <130 normal For patie nts with diabe guille plus 1 major ASCVD risk facto r, treat ing to a non-H DL-C goal of <100 mg/dL (LDL- C of <70 mg/dL ) is consi isidoro rubalcava c optio n. Not Available [address] [place], [address], 11/25/2024 06:38:54 11/24/1911/25/2024 COMPR EHENS BOLIVAR METAB OLIC PANEL glucose 97 mg/dL 65-99 normal Fasti ng refer ence inter neelam Not Available [address], [address], 11/25/2024 06:38:55 11/24/19 25 11/25/2024 COMPR EHENS BOLIVAR METAB OLIC PANEL urea nitrogen (BUN) 10 mg/dL 7-25 normal Not Available [address], [address], 11/25/2024 06:38:55 11/24/19 25 11/25/2024 COMPR EHENS BOLIVAR METAB OLIC PANEL creatinine 0.68 mg/dL 0.60-1 .00 normal Not Available [address], [address], 11/25/2024 06:38:55 11/24/19 25 11/25/2024 COMPR EHENS BOLIVAR METAB OLIC PANEL eGFR 92 mL/mi n/1.7 3m2 > or = 60 normal Not Available [address], [address], 11/25/2024 06:38:55 11/24/19 25 11/25/2024 COMPR EHENS BOLIVAR METAB OLIC PANEL BUN/creatini ne ratio SEE NOTE: (calc ) 6-22 Not Repor kapil: BUN and Creat inine are withi n refer ence range . Not Available [address], [address], 11/25/2024 06:38:55 11/24/19 25 11/25/2024 COMPR EHENS BOLIVAR METAB OLIC PANEL sodium 142 mmol/ L 135-14 6 normal Not Available [address], [address], 11/25/2024 06:38:55 11/24/19 25 11/25/2024 COMPR EHENS BOLIVAR METAB OLIC PANEL potassium 4.1 mmol/ L 3.5-5. 3 normal Not Available [address], [address], 11/25/2024 06:38:55 11/24/19 25 11/25/2024 COMPR EHENS BOLIVAR METAB OLIC PANEL chloride 107 mmol/ L 98-110 normal Not Available [address], [address], 11/25/2024 06:38:55 11/24/19 25 11/25/2024 COMPR EHENS BOLIVAR METAB OLIC PANEL carbon dioxide 27 mmol/ L 20-32 normal Not Available [address], [address], 11/25/2024 06:38:55 11/24/19 25 11/25/2024 COMPR EHENS BOLIVAR METAB OLIC PANEL calcium 9.5 mg/dL 8.6-10 .4 normal Not Available [address], [address], 11/25/2024 06:38:55 11/24/1911/25/2024 COMPR EHENS BOLIVAR METAB OLIC PANEL protein, total 6.7 g/dL 6.1-8. 1 normal Not Available [address], [address], 11/25/2024 06:38:55 11/24/19 25 11/25/2024 COMPR EHENS BOLIVAR METAB OLIC PANEL albumin 4.0 g/dL 3.6-5. 1 normal Not Available [address], [address], 11/25/2024 06:38:55 11/24/1911/25/2024 COMPR EHENS BOLIVAR METAB OLIC PANEL globulin 2.7 g/dL_ (calc ) 1.9-3. 7 normal Not Available [address], [address], 11/25/2024 06:38:55 11/24/19 25 11/25/2024 COMPR EHENS BOLIVAR METAB OLIC PANEL albumin/glob ulin ratio 1.5 (calc ) 1.0-2. 5 normal Not Available [address], [address], 11/25/2024 06:38:55 11/24/1911/25/2024 COMPR EHENS BOLIVAR METAB OLIC PANEL bilirubin, total 0.6 mg/dL 0.2-1. 2 normal Not Available [address], [address], 11/25/2024 06:38:55 11/24/19 25 11/25/2024 COMPR EHENS BOLIVAR METAB OLIC PANEL alkaline phosphatase 72 U/L 37-153 normal Not Available [address] [address] [place], [address], 11/25/2024 06:38:55 11/24/1911/25/2024 COMPR EHENS BOLIVAR METAB OLIC PANEL AST 16 U/L 10-35 normal Not Available [address], [address], 11/25/2024 06:38:55 11/24/19 11/25/2024 COMPR EHENS BOLIVAR METAB OLIC PANEL ALT 15 U/L 6-29 normal Not Available [address], [address], 11/25/2024 06:38:55 11/24/1911/25/2024 CBC (INCL UDES DIFF/ PLT) white blood cell count 6.8 thous and/u L 3.8-10 .8 normal Not Available [address], [address], 11/25/2024 06:38:56 11/24/1911/25/2024 CBC (INCL UDES DIFF/ PLT) red blood cell count 3.82 sandi on/uL 3.80-5 .10 normal Not Available [address], [address], 11/25/2024 06:38:56 11/24/1911/25/2024 CBC (INCL UDES DIFF/ PLT) hemoglobin 12.4 g/dL 11.7-1 5.5 normal Not Available [address], [address], 11/25/2024 06:38:56 11/24/1911/25/2024 CBC (INCL UDES DIFF/ PLT) hematocrit 38.5 % 35.0-4 5.0 normal Not Available [address], [address], 11/25/2024 06:38:56 11/24/1911/25/2024 CBC (INCL UDES DIFF/ PLT) MCV 100.8 fL 80.0-1 00.0 high Not Available [address], [address], 11/25/2024 06:38:56 11/24/1911/25/2024 CBC (INCL UDES DIFF/ PLT) MCH 32.5 pg 27.0-3 3.0 normal Not Available [address], [address], 11/25/2024 06:38:56 11/24/1911/25/2024 CBC (INCL UDES DIFF/ PLT) MCHC 32.2 g/dL 32.0-3 6.0 normal For adult s, a sligh t decre ase in the calcu lated MCHC value (in the range of 30 to 32 g/dL) is most likel y not clini alexandre signi fozia t; eliana er, it shoul d be inter prete d with cauti on in corre latio n with other red cell vickey eters and the patie nt's clini gary condi tion. Not Available [address], [address], 11/25/2024 06:38:56 11/24/1911/25/2024 CBC (INCL UDES DIFF/ PLT) RDW 12.5 % 11.0-1 5.0 normal Not Available [address], [address], 11/25/2024 06:38:56 11/24/1911/25/2024 CBC (INCL UDES DIFF/ PLT) platelet count 115 thous and/u L 140-40 0 low Not Available [address], [address], 11/25/2024 06:38:56 11/24/1911/25/2024 CBC (INCL UDES DIFF/ PLT) MPV fL 7.5-12 .5 Due to plate let or RBC varia bilit y in size or shape the resul t canno t be repor kapil accur ately . Not Available [facility] [address], [address], 11/25/2024 06:38:56 11/24/1911/25/2024 CBC (INCL UDES DIFF/ PLT) absolute neutrophils 4352 cells /uL 1500-7 800 normal Not Available [facility] [id number], [place], [address], 11/25/2024 06:38:56 11/24/1911/25/2024 CBC (INCL UDES DIFF/ PLT) absolute lymphocytes 1632 cells /uL 850-39 00 normal Not Available [address], [address], 11/25/2024 06:38:56 11/24/1911/25/2024 CBC (INCL UDES DIFF/ PLT) absolute monocytes 408 cells /uL 200-95 0 normal Not Available [address], [address], 11/25/2024 06:38:56 11/24/1911/25/2024 CBC (INCL UDES DIFF/ PLT) absolute eosinophils 408 cells /uL 15-500 normal Not Available [address], [address], 11/25/2024 06:38:56 11/24/1911/25/2024 CBC (INCL UDES DIFF/ PLT) absolute basophils 0 cells /uL 0-200 normal Not Available [address], [address], 11/25/2024 06:38:56 11/24/1911/25/2024 CBC (INCL UDES DIFF/ PLT) neutrophils 64 % normal Not Available [address], [address], 11/25/2024 06:38:56 11/24/1911/25/2024 CBC (INCL UDES DIFF/ PLT) lymphocytes 24 % normal Not Available [address], [address], 11/25/2024 06:38:56 11/24/1911/25/2024 CBC (INCL UDES DIFF/ PLT) monocytes 6 % normal Not Available [facility] [address], [address], 11/25/2024 06:38:56 11/24/1911/25/2024 CBC (INCL UDES DIFF/ PLT) eosinophils 6 % normal Not Available [address], [address], 11/25/2024 06:38:56 11/24/1911/25/2024 CBC (INCL UDES DIFF/ PLT) basophils 0 % normal Not Available [address], [address], 11/25/2024 06:38:56 11/24/1911/25/2024 VITAM IN B12/F OLATE , SERUM PANEL vitamin B12 973 pg/mL 200-11 00 normal Not Available [address], [address], 11/25/2024 06:38:56 11/24/1911/25/2024 VITAM IN B12/F OLATE , SERUM PANEL folate, serum 12.8 NG/mL normal Refer ence Range Low: <3.4 Borde rline : 3.4-5 .4 Stephanie l: >5.4 Not Available [address], [address], 11/25/2024 06:38:56 11/24/1911/25/2024 TSH TSH 1.49 mIU/L 0.40-4 .50 normal Not Available [address], [address], 11/25/2024 06:38:56 11/24/1911/25/2024 VITAM IN D,25- OH,TO VICKY,I A vitamin D,25-oh,tota l,ia 95 NG/mL 30-100 normal Vitam in D Statu s 25-OH Vitam in D: Defic iency : <20 ng/mL Insuf ficie ncy: 20 - 29 ng/mL Optim al: > or = 30 ng/mL For 25-OH Vitam in D testi ng on patie nts on D2-mars pplem entat ion and patie nts for whom quant itati on of D2 and D3 fract ions is requi red, the [facility](TM ) 25-OH VIT D, (D2,D 3), LC/MS /MS is recom buzz d: order code 35228 (sandoval ents >2yrs ). See Note 1 Note 1 For addit ional infor manuel cobb e refer to http: //[facility] aubrey [email or web address] stDia gnost ics.c om/fa q/FAQ 199 (This link is being provi ded for infor dustin dillard/ educa rangel l purpo ses only. ) Not Available [facility] [employer] [facility] [address], [place], [address], 11/25/2024 06:38:57 04/14/20 24 04/14/2024 imagi ng/di vinh tic resul t No observ ation record ed. [facility] [address], [place], [address], 04/14/2024 11:31:45 06/04/20 24 06/04/2024 DEXA, axial skele ton [facility] [address] [place] [address] Patien t Name: RAINE BLAIR Patito Access ion #: [id number] Sex: F : 1949 7 Dictat ed By: Kelby Stephenson Attend ing Physic ellie: MANOHAR GIBBS Orderi ng Physic ellie: MANHOAR GIBBS Exam Date: 2023 14:35 PM Exam Name: XR DEXA-H IPS PELVIS SPINE Admitt ing Diagno sis(es ): INDICA TION: 73 years old, Female ; screen ing for osteop orosis . post menopa usal DEXA SCAN: BONE DENSIT Y REPORT : AP SPINE (L1-L4 ) : T Score: 0.3 LEFT HIP TOTAL : T Score: -2.3 RT HIP TOTAL : T Score: -2 TOTAL BILAT HIP AVG: T Score: -2.2 10 YEAR FRACTU RE RISK* not report ed IMPRES UTE: osteop enia bilate ral hips ------ ------ ------ ------ ------ ------ ------ ------ ----- *FRAX versio n 3.08. Fractu re probab ility calcul ated for an untrea kapil patien t. Fractu re probab ility may be lower if the patien t has receiv ed treatm ent. T-scor e: compar ju by viridiana rd deviat ion (SD) to a young adult popula tion, matche d for sex and ethnic ity (used for postme nopaus al women and men >50 years) and classi fied by WHO criter ia. -1.0: normal Page 1 [facility] [address] [place] [address] Patien t Name: MARYGERMAIN SAAVEDRARAINE Access ion #: [id number] Sex: F : 1949 7 Dictat ed By: Kelby Stephenson Attend ing Physic ellie: GAY HASTINGS [facility] Physic ellie: MANOHAR GIBBS Exam Date: 2023 14:35 PM Exam Name: XR DEXA-H IPS PELVIS SPINE Admitt ing Diagno sis(es ): <-1.0 to >-2.5: osteop enia -2.5: osteop orosis -2.5 plus fragil ity fractu re: severe osteop orosis Z-scor e: compar ed by SD to an age, sex, and ethnic ity popula tion (used for premen opausa l women, men <50 years, and childr en instea d of T-scor e WHO criter ia 4) <-2.0: below expect ed range/ low bone densit y for age, and a cause should be sought Electr onical ly Signed by: Kelby Stephenson at 2023 15:16: 40 PM Page 2 INTERFACE [facility] [address] [place], [address], 06/04/2024 16:18:50 01/14/20 25 01/09/2025 imagi ng/di agnos tic resul t No observ ation record ed. [facility] [address] [facility] [address], [address], 01/13/2025 14:14:09 02/11/20 25 02/10/2025 imagi ng/di agnos tic resul t No observ ation record ed. [facility] [address] , [place], [address], 02/10/2025 18:05:52 02/11/20 25 02/10/2025 imagi ng/di agnos tic resul t No observ ation record ed. [facility] [address], [place], [address], 02/10/2025 18:05:59 02/11/20 25 02/10/2025 imagi ng/di agnos tic resul t No observ ation record ed. [facility] [address] [facility] [address], [place], [address], 02/10/2025 18:48:57 02/11/20 25 02/10/2025 imagi ng/di agnos tic resul t No observ ation record ed. [facility] [address], [place], [address], 02/10/2025 19:00:29 Result Notes None recorded. Problems Name Problem SNOMED Code Status Onset Date Resolution Date Notes Provider Name and Address Organization Details Recorded Time Cobalamin deficienc y 127379843 Active 2021 Rehana Dover APRN [address], [address], [place], [address] , [employer] [facility] 4 07:47:16 Localized swelling, mass and lump, neck Completed Not Available [facility] 3 06:14:44 Current tear of medial cartilage AND/OR meniscus of knee Active Not Available [facility] 3 06:14:44 Pain in left foot 67591302357 9107 Active 2021 Not Available [facility] 3 06:14:44 Vitamin D deficienc y 69220836 Active 2016 Not Available [facility] 3 06:14:44 Biliary colic 24262072 Completed Not Available [facility] 3 06:14:44 Osteoarth ritis 642855618 Active Rehana Dover APRN [address], [place], [address] , [employer] [facility] 4 07:47:31 Dysphagia 84378353 Completed Not Available [facility] 3 06:14:44 Pain of left knee joint 61154044674 4107 Active 2021 Not Available [facility] 3 06:14:44 Foot pain 43393938 Active 2021 Not Available [facility] 3 06:14:44 Hyperlipi demia 90036377 Active Rehana Dover APRN [address], [place], [address] , [employer] [facility] 4 07:47:21 Essential hypertens ion 07071462 Completed Not Available [facility] 3 06:14:44 Urinary tract infectiou s disease 98883253 Completed Not Available [facility] 3 06:14:44 Osteoarth ritis of midfoot 085765186 Active 2021 Not Available 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 3 17:06:57 Urinary incontine sde 869449063 Active 2022 Rehana Dover APRN [address], [address], [place], [address] , [employer] [facility] 4 07:47:36 Conde's esophagus 263395320 Active 2022 Rehana Dover APRN [address], [address], [place], [address] , [employer] [facility] 4 07:47:11 Urinary symptoms 493517668 Active 2022 GISELLE Stevenson [address], [address] [place] [address], [place], [address] , [employer] [facility] 3 17:07:13 Overweigh t 348348419 Active 2022 GISELLE Stevenson [address], [place], [address] , [employer] [facility] 3 17:07:24 Gastroeso phageal reflux disease without esophagit is 934156156 Active 2022 Rehana Dover APRN [address], [place], [address] , [employer] [facility] 4 07:47:18 Pain of left hip joint 62939948173 9100 Active 2022 GISELLE Stevenson [address], [place], [address] , [facility] 3 12:48:04 Eruption 532012595 Active 2022 Kamryn richardson, [facility] 3 16:45:30 Acute urinary tract infection 468206290 Active 2022 Heather richardson, [facility] 3 17:27:06 Diverticu litis 537686473 Active 2023 Rehana Dover, [employer] [address], [place], [address] , [facility] 4 12:03:44 Hernia of abdominal cavity 11262752 Active 2023 Rehana Dover, [employer] [address], [place], [address] , [facility] 4 12:04:07 Serum vitamin B12 below reference range 428415420 Active 2023 Juliocesar rhoades MD [address], [place], [address] , [facility] 4 12:26:00 Problem Notes None recorded. Procedures Surgical History Date Name Laterality Status Provider Name and Address Organization Details Recorded Time 06/10/20 24 Chronic care management services completed Giovanna Oliver [facility] [employer] [facility] 06/10/2024 20:36:19 05/12/20 24 Chronic care management services completed Giovanna Oliver [facility] [employer] [facility] 05/12/2024 13:51:51 04/01/20 24 Chronic care management services completed Giovanna Oliver [facility] [employer] [facility] 04/01/2024 17:52:11 09/06/20 23 Medicare Wellness CPT Code, subsequent completed Andra Garcia RN [facility] [employer] [facility] 09/06/2023 13:01:25 03/10/20 20 Knee Replacement completed Not Available [employer] 10/2022 06:08:21 Thyroid Surgery completed Not Available [facility] 12/27/2022 06:08:21 Gallbladder Surgery completed Not Available [facility] 12/27/2022 06:08:21 Partial hysterectomy completed Not Available [facility] 12/27/2022 06:08:21 Imaging Results Imaging Date Name Status LastModified by Organiz ation Details LastModified Time 04/14/2024 imaging/diagno stic result active [facility] [address] [facility] [address], [place], [address], 04/14/2024 11:31:45 06/04/2024 DEXA, axial skeleton active [facility] [address] [place], [address], 06/04/2024 16:18:50 01/09/2025 imaging/diagno stic result active [facility] [address] [facility] [address], [address], 01/13/2025 14:14:09 02/10/2025 imaging/diagno stic result active [facility] [address] , [place], [address], 02/10/2025 18:05:52 02/10/2025 imaging/diagno stic result active [facility] [address] , [place], [address], 02/10/2025 18:05:59 02/10/2025 imaging/diagno stic result active [facility] [address], [place], [address], 02/10/2025 18:48:57 02/10/2025 imaging/diagno stic result active [facility] [address] , [place], [address], 02/10/2025 19:00:29 Procedure Notes None recorded. Medical Equipment None Reported. Allergies No known drug allergies Medications Name Sig Start Date Stop Date Status Note LastModified by Organization Details LastModified Time cyclobenz aprine 10 mg tablet Take 1 tablet 3 times a day by oral route as needed. active Not Available Not Available No t Available amoxicill in 500 mg capsule TAKE 1 CAPSULE BY MOUTH THREE TIMES DAILY UNTIL ALL GONE 03/28 completed Not Available Not Available Not Available atorvasta tin 40 mg tablet TAKE 1 TABLET BY MOUTH EVERY DAY 2024 active Not Available Not Available Not Avai lable prednison e 10 mg tablet Take 3 x 2 days, 2x 2 days, 1 x 2 days active Not Available Not Available No t Available doxycycli ne hyclate 100 mg capsule Take 1 capsule twice a day by oral route for 10 days. active Not Available Not Available No t Available oxybutyni n chloride ER 10 mg tablet,ex tended release 24 hr TAKE 1 TABLET BY MOUTH EVERY DAY active Not Available Not Available No t Available azithromy sarthak 250 mg tablet 02/17 completed Not Available Not Available Not Available ibuprofen 800 mg tablet TAKE 1 TABLET BY MOUTH EVERY 4-6 HOURS NEEDED FOR DENTAL PAIN 08/15 completed Not Available Not Available Not Available benzonata te 200 mg capsule Take 1 capsule 3 times a day by oral route as needed. active Not Available Not Available No t Available hydrocodo ne 5 mg-acetam inophen 325 mg tablet active Not Available Not Available Not Available minocycli ne 100 mg capsule TAKE 1 CAPSULE BY MOUTH TWICE DAILY 03/04 completed for nails Not Available Not Available Not Available meloxicam 15 mg tablet TAKE 1 TABLET BY MOUTH EVERY DAY 05/17 completed Not Available Not Available Not Available sucralfat e 1 gram tablet TAKE 1 TABLET BY MOUTH THREE TIMES A DAY active Not Available Not Available No t Available metronida zole 0.75 % (37.5 mg/5 gram) vaginal gel 11/16 completed Not Available Not Available Not Available famotidin e 40 mg tablet TAKE 1 TABLET BY MOUTH AT BEDTIME NEEDED active Not Available Not Available No t Available prednison e 5 mg tablet active Not Available Not Available Not Available clobetaso l 0.05 % topical cream 02/15 completed Not Available Not Available Not Available penicilli n V potassium 500 mg tablet TAKE 1 TABLET BY MOUTH FOUR TIMES DAILY UNTIL ALL TAKEN 07/15 completed Not Available Not Available Not Available phentermi ne 37.5 mg tablet TAKE 1 TABLET BY MOUTH EVERY DAY active Not Available Not Available No t Available acetamino phen 300 mg-codein e 30 mg tablet TK 1 T PO Q 4 H PRN active Not Available Not Available No t Available ciproflox acin 500 mg tablet TAKE 1 TABLET BY MOUTH TWICE A DAY FOR 7 DAYS active Not Available Not Available No t Available sulfameth oxazole 800 mg-trimet hoprim 160 mg tablet TAKE 1 TABLET BY MOUTH TWICE DAILY 11/06 completed Not Available Not Available Not Available omeprazol e 40 mg capsule,d elayed release TAKE 1 CAPSULE BY MOUTH TWICE DAILY 05/29 completed Not Available Not Available Not Available tramadol 50 mg tablet active Not Available Not Available Not Available triamcino lone acetonide 0.1 % topical cream APPLY AND RUB IN WEL TO INVOLVED AREAS OF RIGHT SHOULDER TWICE DAILY UNTIL CLEAR DIRECTED active Not Available Not Available No t Available amoxicill in 500 mg tablet TAKE 4 TABLETS BY MOUTHY 1 HOUR PRIOR TO DENTAL APPOINTM ENT 03/28 completed Not Available Not Available Not Available ciclopiro x 8 % topical solution active Not Available Not Available Not Available meloxicam 7.5 mg tablet TAKE 1 TABLET BY MOUTH EVERY DAY active Not Available Not Available No t Available oxycodone -acetamin ophen 5 mg-325 mg tablet active Not Available Not Available Not Available terbinafi ne HCl 250 mg tablet TAKE 1 TABLET BY MOUTH DAILY 02/27 completed Not Available Not Available Not Available estradiol 1 mg tablet TK 1 T PO QD 02/15 completed Not Available Not Available Not Available DOK 100 mg capsule TK ONE C PO BID active Not Available Not Available No t Available Kenalog 10 mg/mL suspensio n for injection In office injectio n administ ered by the provider 03/25 completed ND: [id number] 02-15 Not Available Not Available Not Available doxycycli ne monohydra te 100 mg capsule 10/25 completed Not Available Not Available Not Available hydrocodo ne 7.5 mg-acetam inophen 325 mg tablet TK 1 TO 2 TS PO Q 6 H PRN active Not Available Not Available No t Available cephalexi n 500 mg capsule active Not Available Not Available Not Available cyanocoba maribel (vit B-12) 1,000 mcg/mL injection solution Inject 1mL IM monthly 08/11 completed Not Available Not Available Not Available esomepraz ole magnesium 40 mg capsule,d elayed release TAKE 1 CAPSULE BY MOUTH EVERY DAY NEEDED active Not Available Not Available No t Available triamcino lone acetonide 0.1 % topical ointment 11/16 completed Not Available Not Available Not Available diclofena c sodium 75 mg tablet,de layed release TAKE 1 TABLET BY MOUTH TWICE DAILY WITH FOOD active Not Available Not Available No t Available Simpson 10 mg-325 mg tablet Take 1 tablet every 4 hours by oral route. 08/18 completed Not Available Not Available Not Available estradiol 0.5 mg tablet TAKE 1 TABLET BY MOUTH EVERY DAY active Not Available Not Available No t Available ergocalci ferol (vitamin D2) 1,250 mcg (50,000 unit) capsule TAKE 1 CAPSULE BY MOUTH EVERY WEEK active Not Available Not Available No t Available clobetaso l 0.05 % topical ointment APPLY TO EXTERNAL VULVAR AREA 2 TIMES PER WEEK. 01/24 completed Not Available Not Available Not Available Transderm -Scop 1 mg over 3 days transderm al patch 1 patch q 72 hours 08/25 completed Not Available Not Available Not Available cefuroxim e axetil 500 mg tablet active Not Available Not Available Not Available levofloxa sarthak 500 mg tablet TK 1 T PO Q 24 H 08/18 completed Not Available Not Available Not Available methylpre dnisolone 4 mg tablets in a dose pack FOLLOW PACKAGE DIRECTIO NS 09/06 completed Not Available Not Available Not Available oxybutyni n chloride 5 mg tablet TK 1 T PO BID 08/18 completed Not Available Not Available Not Available clobetaso l 0.05 % scalp solution APPLY DIRECTED . RUB IN WELL DAILY TO INVOLVED AREAS OF SCALP UNTIL CLEAR active Not Available Not Available No t Available Hibiclens 4 % topical liquid Directio ns: Shower with the body wash the night before surgery and morning of the surgery at home before coming in for surgery. Take extra time to wash carefull y the hip, knee or shoulder that will have the surgery. 08/04 completed Not Available Not Available Not Available Ambien 10 mg tablet Take 1 tablet every day by oral route. active Not Available Not Available No t Available Vitamin D3 25 mcg (1,000 unit) capsule qd 08/18 completed Not Available Not Available Not Available nitrofura ntoin monohydra te/macroc rystals 100 mg capsule TAKE 1 CAPSULE BY MOUTH TWICE DAILY 09/06 completed Not Available Not Available Not Available ibandrona te 150 mg tablet TK 1 T PO Q MONTH 03/19 completed Not Available Not Available Not Available Euflexxa 10 mg/mL (mw 2.4-3.6 million) intra-art icular syringe Injectio ns given in the office by the doctor 08/04 completed NDC: [id number] Not Available Not Available Not Available Vitamin D 01/24 completed Not Available Not Available Not Available Botox for bladder 01/24 completed Not Available Not Available Not Available apple cider vinegar 08/15 completed Jeanna Gummies Not Available Not Available Not Available Vitamin B12 500 mcg daily active Not Available Not Available No t Available lidocaine (PF) 10 mg/mL (1 %) injection solution In office injectio n administ ered by the provider 03/25 completed ND: [id number] Not Available Not Available Not Available dexlansop razole 60 mg capsule,b iphase delayed release TAKE 1 CAPSULE BY MOUTH DAILY 05/29 completed Not Available Not Available Not Available Xarelto 10 mg tablet TK 1 T PO Q 24 H FOR 14 DOSES active Not Available Not Available No t Available Myrbetriq 50 mg tablet,ex tended release TAKE 1 TABLET BY MOUTH EVERY DAY 03/28 completed Not Available Not Available Not Available Vicodin HP 10 mg-300 mg tablet active Not Available Not Available Not Available Shingrix (PF) 50 mcg/0.5 mL intramusc ular suspensio n, kit 08/18 completed Not Available Not Available Not Available ID NOW COVID-19 Test Kit DIRECTED 06/13 completed Not Available Not Available Not Available Paxlovid 300 mg (150 mg x 2)-100 mg tablets in a dose pack TAKE DIRECTED . 02/27 completed Not Available Not Available Not Available Voquezna 20 mg tablet Take 1 tablet every day by oral route as needed for 90 days. 08/11 completed Not Available Not Available Not Available Vitals Date Recorded Body height Provider Name an d Address Organization Details Last Updated DateTime 05/12/2024 152.4 cm Giovanna Oliver [facility] [employer] [facility] 05/12/2024 13:49:28 Date Recorded Body height Body mass index (BMI) Body weight Body temperature Heart rate Oxygen saturation Oxygen saturation in Arterial blood by Pulse oximetry Systolic blood pressure Diastolic blood pressure Provider Name and Address Organization Details Last Updated DateTime 4 152.4 cm 24.8 kg/m2 20634.2 3 g 97.9 [degF] 82 /min 97 % 97 % 118 mm[Hg] 72 mm[Hg] Zahira Ramirez MA [place] [employer] [facility] [employer] 11:58:39 Date Recorded Body height Provider Name an d Address Organization Details Last Updated DateTime 06/09/2024 152.4 cm Giovanna Oliver [facility] [employer] [facility] 06/10/2024 20:33:34 Date Recorded Body height Body mass index (BMI) Body weight Body temperature Heart rate Respiratory rate Oxygen saturation Oxygen saturation in Arterial blood by Pulse oximetry Pain severity - 0-10 verbal numeric rating [Score] - Reported Systolic blood pressure Diastolic blood pressure Provider Name and Address Organization Details Last Updated DateTime 4 152.4 cm 26.6 kg/m2 55271.5 6 g 98.2 [degF] 80 /min 18 /min 98 % 98 % 2 136 mm[Hg] 72 mm[Hg] Guru Lafleur LPN [facility] [employer] 4 17:06:01 Date Recorded Body height Body mass index (BMI) Body weight Body temperature Heart rate Oxygen saturation Oxygen saturation in Arterial blood by Pulse oximetry Pain severity - 0-10 verbal numeric rating [Score] - Reported Systolic blood pressure Diastolic blood pressure Provider Name and Address Organization Details Last Updated DateTime 5 152.4 cm 26.3 kg/m2 88111.1 7 g 98.2 [degF] 73 /min 98 % 98 % 0 122 mm[Hg] 68 mm[Hg] Zahira Ramirez MA [place] [employer] [facility] [employer] 5 10:39:50 Social History Question Answer Notes LastModified by Organization Details LastModified Time Tobacco Smoking Status Never Smoker JHONNY Chatterjee [place] - [facility] 09/06/2023 12:11:31 Do You Have An Advance Directive? Yes Living Will On File [id number] Information not available 12/27/2022 What Is Your Level Of Alcohol Consumption? Occasional [id number] Information not available 12/27/2022 Are You Blind Or Do You Have Difficulty Seeing? No [email or web address] Information not available 09/06/2023 What Is Your Level Of Caffeine Consumption? Heavy [id number] Information not available 12/27/2022 How Much Tobacco Do You Chew? None [id number] Information not available 12/27/2022 In The 14 Days Before Symptom Onset, Have You Had Close Contact With A Laboratory-conf irmed COVID-19 While That Case Was Ill? No [email or web address] Information not available 09/06/2023 In The 14 Days Before Symptom Onset, Have You Had Close Contact With A Person Who Is Under Investigation For COVID-19 While That Person Was Ill? No [email or web address] Information not available 09/06/2023 Are You Currently Employed? No Information not available 05/29/2024 Are You Deaf Or Do You Have Serious Difficulty Hearing? Yes Patient Wears Bilateral Hearing Aids. [email or web address] Information not available 09/06/2023 What Type Of Diet Are You Following? REGULAR [id number] Information not available 12/27/2022 Which Illicit Or Recreational Drugs Have You Used? None [email or web address] Information not available 09/06/2023 Do You Or Have You Ever Used E-cigarettes Or Vape? Never Used Electronic Cigarettes [email or web address] Information not available 09/06/2023 What Is The Highest Grade Or Level Of School You Have Completed Or The Highest Degree You Have Received? [id number] Information not available 09/06/2023 What Is Your Occupation? Retired Information not available 09/06/2023 Have There Been Any Changes To Your Family Or Social Situation? No [email or web address] Information not available 09/06/2023 What Is The Fluoride Status Of Your Home? Unknown [email or web address] Information not available 09/06/2023 Are There Any Guns Present In Your Home? Yes [email or web address] Information not available 09/06/2023 Do You Use Insect Repellent Routinely? No [email or web address] Information not available 09/06/2023 Where Do You Live? [facility] [email or web address] Information not available 09/06/2023 Guns Present In The Home? Yes [email or web address] Information not available 09/06/2023 Are You Able To Care For Yourself? Yes [email or web address] Information not available 09/06/2023 Are You Blind Or Do Yo Have Difficulty Seeing? No [email or web address] Information not available 09/06/2023 Are You Deaf Or Do You Have Serious Difficulty Hearing? Yes [email or web address] Information not available 09/06/2023 Live Alone Of With Others? With Others [email or web address] Information not available 09/06/2023 What Was The Date Of Your Most Recent Tobacco Screening? 12/02/2024 Information not available 12/02/2024 How Many Children Do You Have? 2 Information not available 05/29/2024 Do You Have Any Pets? Yes [email or web address] Information not available 09/06/2023 What Is Your Relationship Status? [id number] Information not available 12/27/2022 Do You Use Your Seat Belt Or Car Seat Routinely? Yes Information not available 09/06/2023 Do You Have Smoke And Carbon Monoxide Detectors In Your Home? Yes [email or web address] Information not available 09/06/2023 Are You Passively Exposed To Smoke? No [email or web address] Information not available 09/06/2023 Do You Or Have You Ever Used Smokeless Tobacco? Never Used Smokeless Tobacco [id number] Information not available 12/27/2022 Are There Any Smokers In Your House? No [email or web address] Information not available 09/06/2023 How Much Tobacco Do You Smoke? No MIGRATION.[id number] Information not available 12/27/2022 Do You Feel Stressed (tense, Restless, Nervous, Or Anxious, Or Unable To Sleep At Night)? [id number] [email or web address] Information not available 09/06/2023 Do You Use Any Illicit Or Recreational Drugs? No [email or web address] Information not available 09/06/2023 Do You Use Sunscreen Routinely? Yes [email or web address] Information not available 09/06/2023 Has Tobacco Cessation Counseling Been Provided? No N/A Information not available 09/06/2023 Have You Recently Traveled Abroad? No [email or web address] Information not available 09/06/2023 Do You Have Any Dietary Restrictions? No [email or web address] Information not available 09/06/2023 Do You Or Have You Ever Used Any Other Forms Of Tobacco Or Nicotine? No [email or web address] Information not available 09/06/2023 Sex: Unknown Functional Status Question Answer Note LastModified by Organizat ion Details LastModified Time Do you have difficulty walking or climbing stairs? No [email or web address] Information not available 09/06/2023 Do you have transportation difficulties? No [email or web address] Information not available 09/06/2023 Are you able to walk? YESWOREST [email or web address] Information not available 09/06/2023 Do you have difficulty doing errands alone? No [email or web address] Information not available 09/06/2023 Are you able to care for yourself? Yes [email or web address] Information n ot available 09/06/2023 Do you have difficulty dressing or bathing? No Information not available 09/06/2023 What is your exercise level? Heavy [id number] Information not available 12/27/2022 Mental Status Question Answer Note LastModified by Organization D etails LastModified Time Do you have difficulty concentrating, remembering or making decisions? No [email or web address] Information no t available 09/06/2023 Family History Relationship Description Onset Age of this Age Resolved Age Notes LastModified by Organization Details LastModified Time Father Family history of malignant neoplasm [email or web address] Not available 12/02 10:33:45 Father Diabetes mellitus [id number] Not available 12/27/2022 06:08:26 Mother Hypertensive disorder [id number] Not available 12/27/2022 06:08:26 Sister Diabetes mellitus [id number] Not available 12/27/2022 06:08:26 Medical History Condition Response ARTHRITIS Y ECZEMA Y DIVERTICULITIS Y GERD/NAUSEA Y EAR OR HEARING PROBLEMS Y Gall Stones Y URINARY/BLADDER/KIDNEY PROBLEMS Y HAVE YOU BEEN HOSPITALIZED OR SEEN IN [facility] IN THE PAST YEAR ? N Deficiency Y Gynecological History Statement/Question Response How many live births 2 Abnormal Pap N If Post Menopausal, Age at Menopause Date of Last Mammogram Date of Last Colonoscopy Date of LMP Most Recent Bone Density Menses Monthly N Current Control Method Hysterectom y Obstetrics History GPAL:G 2 P 2 0 0 2 Type Value Multiple Births 0 Full Term 2 Induced 0 Spontaneous 0 Premature 0 Living 2 Ectopics 0 Total 2 Immunizations Vaccine Type Date Status Note Provider Nam e and Address Organization Details Recorded Time zoster recombinant 3 completed Rehana Dover APRN [address], [place], [address], [employer] [facility] [employer] [facility] 03/04/2024 12:08:45 zoster recombinant 3 completed Rehana Dover APRN [address], [place], [address], [employer] [facility] [employer] [facility] 03/04/2024 12:08:45 COVID-19, mRNA, LNP-S, bivalent, PF, 50 mcg/0.5 mL or 25mcg/0.25 mL dose 2 completed Rehana Dover APRN [address], [place], [address], [employer] [facility] [employer] [facility] 03/04/2024 12:08:45 COVID-19, mRNA, LNP-S, PF, bryson-sucrose, 30 mcg/0.3 mL 3 completed Rehana Dover APRN [address], [place], [address], [employer] [facility] [employer] [facility] 03/04/2024 12:08:45 Influenza, high-dose, quadrivalent, PF 3 completed GISELLE Stevenson [address], [place], [address], [employer] [facility] [employer] [facility] 09/10/2023 09:47:23 COVID-19, mRNA, LNP-S, PF, 100 mcg/0.5mL dose or 50 mcg/0.25mL dose 1 completed Rehana Stanislaw, TELEGRAPH AND TELETYPE OPERATOR [address], [place], [address], [facility] [employer] [facility] 03/04/2024 12:08:45 COVID-19, mRNA, LNP-S, PF, 100 mcg/0.5mL dose or 50 mcg/0.25mL dose 1 completed Not Available [facility] 12/27/2022 06:20:26 COVID-19, mRNA, LNP-S, PF, 100 mcg/0.5mL dose or 50 mcg/0.25mL dose 1 completed Rehana Dover, TELEGRAPH AND TELETYPE OPERATOR [address], [place], [address], [facility] [employer] [facility] 03/04/2024 12:08:45 Influenza, split virus, quadrivalent, preservative 0 completed Not Available [facility] 12/27/2022 06:20:26 Influenza, high-dose, quadrivalent, PF 2 completed Not Available [facility] 12/27/2022 06:20:26 Influenza, high-dose, quadrivalent, PF 1 completed Not Available [facility] 12/27/2022 06:20:26 Influenza, high-dose, trivalent, PF 9 completed Not Available [facility] 12/27/2022 06:20:26 Influenza, high-dose, trivalent, PF 8 completed Not Available [facility] 12/27/2022 06:20:26 Influenza, high-dose, trivalent, PF 6 completed Not Available [facility] 12/27/2022 06:20:26 pneumococcal polysaccharide PPV23 6 completed Not Available [facility] 12/27/2022 06:20:26 Influenza, split virus, quadrivalent, preservative 5 completed Not Available [facility] 12/27/2022 06:20:27 Influenza, high-dose, trivalent, PF 7 completed Not Available [facility] 12/27/2022 06:20:27 Pneumococcal conjugate PCV 13 7 completed Not Available [facility] 12/27/2022 06:20:27 Influenza, split virus, trivalent, preservative 4 completed Rehana Dover, TELEGRAPH AND TELETYPE OPERATOR [address], [place], [address], [facility] [employer] [facility] [employer] [facility] 03/04/2024 12:08:45 Influenza, split virus, trivalent, preservative 3 completed Rehana Dover, TELEGRAPH AND TELETYPE OPERATOR [address], [place], [address], [facility] [employer] [facility] [employer] 03/04/2024 12:08:45 Influenza, high-dose, trivalent, PF 4 completed [place] [employer] [facility] [employer] [facility] 08/26/2024 15:12:44 Past Encounters Encounter ID Performer Location Encounter Start Date Encounter Closed Date Diagnosis/Indication Diagnosis SNOMED-CT Code Diagnosis ICD10 Code Diagnosis Note [id number] [facility] [place] [address] [facility] [address] [place] [address] 01/24/2021 00:00:00 01/24/2021 17:05:50 [id number] [facility] [place] [address] [place] [address] 02/23/2021 00:00:00 03/06/2021 17:21:53 [id number] [facility] [place] [address] [place] [address] 03/25/2021 00:00:00 03/25/2021 10:32:16 [id number] [facility] [address] [place] [address] 05/09/2021 00:00:00 05/09/2021 13:20:18 [id number] [facility] [place] [address] [place] [address] 06/13/2021 00:00:00 06/13/2021 16:11:57 [id number] [facility] [place] [address] [place] [address] 07/15/2021 00:00:00 07/15/2021 17:04:18 [id number] [facility] [address] [facility] [address] [place] [address] 08/15/2021 00:00:00 08/15/2021 14:44:20 [id number] [facility] [address] [place] [address] [address]., [facility] [address] [place] [address] 09/16/2021 00:00:00 09/16/2021 15:44:48 [id number] [facility] [address] [facility] [facility] [address] [address] 03/28/2022 00:00:00 03/28/2022 14:24:09 [id number] [facility] [place] [address] [place] [address] 04/26/2022 00:00:00 04/26/2022 10:41:14 [id number] [facility] [place] [address] [place] [address] 06/29/2022 00:00:00 06/29/2022 12:44:32 [id number] [facility] [place] [address] [place] [address] 08/21/2022 00:00:00 08/21/2022 14:57:57 [id number] [facility] [address] [address] 08/29/2022 00:00:00 08/29/2022 13:36:18 [id number] [facility] [place] [address] [place] [address] 08/30/2022 00:00:00 08/30/2022 13:04:16 [id number] [facility] [address] [place] [address] [address]., [address] [address] 11/06/2022 00:00:00 11/06/2022 16:23:01 [id number] GISELLE Stevenson [facility] Internal Med [facility] [address], [facility] [address] [place] [address] 02/27/2023 12:19:25 02/27/2023 12:51:17 Onychomycosis 317711356 B35.1 now resolved- advised to avoid the gel nails/acry lic nails Hyperlipidemia 86691346 E78.5 mild, working on diet/exerc ise Vitamin D deficiency 347 05324 E55.9 on OTC supplement Cobalamin deficiency 190 505636 E53.8 on monthly injections Thrombocyt openic disorder 444731757 D69.6 mild, continue to monitor- has cbc order for today Urinary incontinence 165 305683 R32 Follows urology- Chaparro Bullockon botox injections Conde's esophagus 3029 33709 K22.70 follows GI- Dr. Mai Blount EGD 12/2020 w/o evidence of Barretts Gastroesop hageal reflux disease without esophagitis 535550830 K21.9 on omeprazole add famotidine prn at hslifestyl e measures discussed to reduce refluxcall office if no improvemen t and we can get her an appt with GI- Dr. Nicole Duran Pain of le ft hip joint 4123398540 40130 M25.552 Get appointmen t with Ortho per her requestShe declines x-rays today-want s to wait until she sees Ortho [id number] Fortunato Turner MD [facility] [place] [address] [place] [address] 04/11/2023 09:14:15 04/12/2023 14:34:43 Pain of left hip joint 0630234472 30891 M25.552 [id number] KIRK Herrmann [facility] [place] [address] [place] [address] 05/17/2023 14:07:35 05/17/2023 15:07:24 Pain of left hip joint 2704890450 46503 M25.388 [id number] GISELLE Stevenson [facility] Internal Med [facility] [address] [facility] [address] [address] 09/06/2023 12:10:10 09/06/2023 13:09:50 Hyperlipidemia 57118056 E78.5 mild, working on diet/exerc ise Vitamin D deficiency 347 97680 E55.9 on OTC supplement Cobalamin deficiency 190 270204 E53.8 on monthly injections Thrombocyt openic disorder 892944810 D69.6 mild, continue to monitor Urinary incontinence 165 249038 R32 Follows urology- Chaparro Bullockon botox injections Conde's esophagus 3029 01883 K22.70 follows GI- Dr. Mai Blount EGD 12/2020 w/o evidence of Barretts Gastroesop hageal reflux disease without esophagitis 259886430 K21.9 on omeprazole in AM, famotidine prn at hslifestyl e measures discussed to reduce refluxneed s to get an appt with GI- Dr. Nicole Guthrie precaution s Pain of le ft hip joint 9973279034 78715 M25.552 following ortho- Dr. Bedoya roved after PT Adult heal th examination 264353937 Z00.00 Screening for disorder 178414688 Z13.9 Administra tion of influenza vaccine 27352111 Z23 [id number] Rehana Dover APRN [facility] Internal Med [facility] [address] [facility] [address] [address] 03/04/2024 11:52:39 03/04/2024 12:23:23 Hyperlipidemia 74605331 E78.5 Gastroesop hageal reflux disease without esophagitis 989297888 K21.9 Cobalamin deficiency 190 056802 E53.8 Vitamin D deficiency 347 29914 E55.9 [id number] Litzy Moser [facility] Internal Med [facility] [address] [facility], [address] [address] 04/01/2024 17:49:18 04/01/2024 18:00:18 Hyperlipidemia 42015520 E78.5 Gastroesop hageal reflux disease without esophagitis 812880314 K21.9 Vitamin D deficiency 347 79631 E55.9 Cobalamin deficiency 190 166809 E53.8 [id number] Litzy Moser [facility] [place] [address] [place] [address] 05/12/2024 13:48:15 07/16/2024 18:31:22 Osteoarthritis 880980235 M19.90 Hyperlipidemia 52056114 E78.5 Diverticulitis 754696583 K57.92 Gastroesop hageal reflux disease without esophagitis 147161249 K21.9 [id number] Juliocesar rhoades MD [facility] Internal Med [facility] [address] [facility] [address] [place] [address] 05/29/2024 11:49:30 05/29/2024 12:46:32 Screening - NAD 412686042 Z13.9 C-scope: Dr Davis Mammogram: Get thisDEXA: Get thisPAP: See her OB Dr Hoyos Get yearly flu shotGet Tdap if not doneGet shingrix vaccineCan do COVID 19 vaccine and its vaccineCan do PCV RTC in 3 months, do labs, ER if worse, she is very appreciati ve to this plan of care Hyperlipidemia 32001068 E78.5 Get labs Urinary incontinence 165 717319 R32 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 03/17/2024 , f/u in w weeks for UA/PVRNow sees Dr Parnell, referred 05/29/2024 , states that she has gotten botox Conde's esophagus 3029 88374 K22.70 EGD 01/17/2021 EGD 04/17/[address] Davis 04/07/2024 Stop omeprazole , changed to dexilant 60mg daily but could not afford this, will start on Voquenza and also refer to Dr Yancey, may need to get fundoplica tion done Pain of le ft hip joint 5038220343 03803 M25.552 Seen by Jose Ruiz 05/17/2023 Screening mammography 24 150188 Z12.31 Screening for osteoporosis 252194981 Z13.820 Serum betsy min B12 below reference range 129368044 R79.89 [id number] Litzy Moser [facility] Internal Med [facility] [address] [facility] [address] [place] [address] 06/10/2024 20:31:59 07/17/2024 19:22:29 Gastroesophageal reflux disease without esophagitis 739828260 K21.9 Diverticulitis 564906850 K57.92 Conde's esophagus 3029 02384 K22.70 Hyperlipidemia 02433687 E78.5 [id number] Juliocesar rhoades MD [facility] [place] [address] [facility] [address] [place] [address] 08/11/2024 16:56:13 08/11/2024 17:43:02 Screening - NAD 447728470 Z13.9 C-scope: Dr Davis Mammogram: Get this DEXA: 06/04/2024 : Osteopenia , do more ca and vit d PAP: See her OB Dr Hoyos Get yearly flu shotGet Tdap if not doneGet shingrix vaccineCan do COVID 19 vaccine and its vaccineCan do PCV RTC in 3 months, do labs, ER if worse, she is very appreciati ve to this plan of care Hyperlipidemia 33806236 E78.5 On atorvastat in 40mg dailyGet labs Urinary incontinence 165 287708 R32 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 03/17/2024 , f/u in w weeks for UA/PVRNow sees Dr Parnell, referred 05/29/2024 , states that she has gotten botox Conde's esophagus 3029 12240 K22.70 EGD 01/17/2021 EGD 04/17/[address] Davis 04/07/2024 Stop omeprazole , changed to dexilant 60mg daily but could not afford this, will start on Voquenza and also refer to Dr Yancey, may need to get fundoplica tion done OV 08/11/2024 :On nexium 40mg daily [facility] Pain of le ft hip joint 8940523736 27576 M25.552 Seen by Jose Ruiz 05/17/2023 Screening mammography 24 717224 Z12.31 Screening for osteoporosis 718533580 Z13.820 Serum betsy min B12 below reference range 035719312 R79.89 Acute urin js tract infection 492580835 N39.0 UA: +1 leuk, +1 nitrite, blood traceOn cipro, will finish the courseGet UA Cx and Sx [id number] Juliocesar rhoades MD [facility] Internal Med [facility] [address] [facility], [place] [address] 12/02/2024 10:32:59 12/02/2024 11:46:17 Screening - NAD 639650437 Z13.9 C-scope: Dr Davis Mammogram: Get this DEXA: 06/04/2024 : Osteopenia , do more ca and vit d PAP: See her OB Dr Hoyos Get yearly flu shotGet Tdap if not doneGet shingrix vaccineCan do COVID 19 vaccine and its vaccineCan do PCV RTC in 3 months, do labs, ER if worse, she is very appreciati ve to this plan of care Hyperlipidemia 94054671 E78.5 On atorvastat in 40mg dailyGet labs Urinary incontinence 165 878209 R32 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 03/17/2024 , f/u in w weeks for UA/PVRNow sees Dr Parnell, referred 05/29/2024 , states that she has gotten botox Conde's esophagus 3029 51476 K22.70 EGD 01/17/2021 EGD 04/17/[address] Davis 04/07/2024 Stop omeprazole , changed to dexilant 60mg daily but could not afford this, will start on Voquenza and also refer to Dr Yancey, may need to get fundoplica tion done Now on nexium 40mg daily PRNSee GI Pain of le ft hip joint 4206439174 13251 M25.552 Seen by Jose Ruiz 05/17/2023 Screening mammography 24 009831 Z12.31 Screening for osteoporosis 134288218 Z13.820 Serum betsy min B12 below reference range 754558938 R79.89 Screening for cardiovascular system disease 167873423 Z13.6 Thrombocyt openic disorder 639567855 D69.6 Referred to hematology Health Concerns Section Related Observation LastModified by Organization Detai ls LastModified Time None Recorded Concern Status LastModified by Organization Details LastModified Time None Recorded Advance Directives Directive Y: Living Will on file Payers Encounter Date Sequence Insurance Name Policy Number Policy Soliman Covered Member ID Soliman Member ID Guarantor Name 05/12/2024 1 [facility] (MEDICARE REPLACEMENT/A DVANTAGE - HMO) [id number] Rosario K Wiehardt [id number] Rosario K Wiehardt 05/29/2024 1 [employer] (MEDICARE REPLACEMENT/A DVANTAGE - HMO) [id number] Rosario K Wiehardt [id number] Rosario K Wiehardt 06/09/2024 1 [employer] (MEDICARE REPLACEMENT/A DVANTAGE - HMO) [id number] Rosario K Wiehardt [id number] Rosario K Wiehardt 08/11/2024 1 [employer] (MEDICARE REPLACEMENT/A DVANTAGE - HMO) [id number] Rosario K Wiehardt [id number] Rosario K Wiehardt 12/02/2024 1 [employer] [facility] (MEDICARE REPLACEMENT/A DVANTAGE - HMO) [id number] Rosario Kristin Wiehardt [id number] Rosario Kristin Wiehardt Notes Date Note Type Note Provider Name and Address Organization Details Recorded Time 05/29/2024 text/html OV 05/29/2024:Here to establish care Present Hx :GERD Here to discuss GERD issues, she feels well, has had another EGD, and was told that she was to take omeprazole, she feels that the omeprazole has not helped, still has reflux symptoms with burning 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, she would like to discuss use of another PPI or med OV 08/11/2024: Here for her f/u apt, she is still c/o UTI sx is on the cipro, no gross hematuria, no new labs noted Juliocesar Leal MD [address], [facility] [address], [place], [address], [facility] [employer] [facility] [employer] [facility] 08/11/2024 17:42:58 12/02/2024 text/html OV 05/29/2024:Here to establish care Present Hx :GERD Here to discuss GERD issues, she feels well, has had another EGD, and was told that she was to take omeprazole, she feels that the omeprazole has not helped, still has reflux symptoms with burning 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
--- OUTSIDE RECORDS SUMMARY | 2025-02-17 13:57 | XMS_ITS | CONTINUITY OF CARE DOCUMENT ---
Author Name paolo, paolo Address Unknown Organization [facility] Address [address] [place] [address] Phone [phone] Care Team Providers Care Laundry Or Dry Cleaners Counter Clerk Name Role Phone Dao ENGLE, Rosangela Unavailable ROSIE TOLENTINO MD Unavailable [phone] ROSIE TOLENTINO MD Unavailable PROBLEMS Condition Status Date Provider Notes Cardiology examination active Gene norwood MD Hyperlipidemia active Rosangela Dc MD Diastolic dysfunction active Rosangela Melton Arthritis, L knee active Fei Melendez Preoperative cardiovascular examination completed - Roscoe Kam GERD active Gene Tineo MD Family History of Hypertension: active Kirsty Tineo MD ENCOUNTERS Date Type Provider Location Encounter Diag nosis - In-person encounter Office Visit Rosangela Dc MD [place] Preoperative cardiovascular examinationDiastolic dysfunctionHyperlipidemia - In-person encounter Office Visit Gene Tineo MD [place] Cardiology examinationFamily History of Hypertension:GERDArthritis, L knee - In-person encounter Office Visit Gene Tineo MD [facility] VITAL SIGNS Date Observation Value Provider Body Mass Index (Ratio) 25.51 kg/m2 Anil Dc MD blood pressure, diastolic 81 mm[Hg] Jess [employer] blood pressure, systolic 120 mm[Hg] Elaine [employer]Logic blood pressure, diastolic 81 mm[Hg] Tank Dietrich blood pressure, systolic 120 mm[Hg] Donya Dietrich pulse rate 74 /min Christa Butler s oxygen saturation, oximetry 98 % Christa Butlers blood pressure, cuff size regular Br elizabeth Butlers weight E&M 135 [lb_av] Christa Butler s height E&M 61 [in_i] Christa Butler s Body Mass Index (Ratio) 26.07 kg/m2 Aguila martinez Kyte blood pressure, resting No Brit avelino Block pulse rate 92 /min Anastasia Block oxygen saturation, oximetry 98 % Anastasia Block blood pressure, diastolic 72 mm[Hg] Br ittany Block blood pressure, systolic 122 mm[Hg] Donya suerony Block height E&M 61 [in_i] Anastasia Block weight E&M 138 [lb_av] Anastasia Block respiratory rate E&M 16 /min [facility] Unittan y Block temperature E&M 96.0 [degF] Pilar Tanks bartolome ALLERGIES No Known Drug Allergies HISTORY OF MEDICATION USE Medication Status Instructions Dates Provider Indications Com ments famotidine 40 mg tablet active TAKE 1 TABLET BY MOUTH AT BEDTIME NEEDED Christa Dietrich esomeprazole magnesium 40 mg capsule,delayed release(DR/EC) active TAKE 1 CAPSULE BY MOUTH EVERY DAY NEEDED Christa Dietrich atorvastatin 40 mg tablet active TAKE 1 TABLET BY MOUTH EVERY DAY Christa Dietrich SOCIAL HISTORY Date Observation Value Provider alcohol use, average drinks per day <1 Roscoe Kam alcohol use yes Roscoe Kam smoking status Never smoker Roscoe Kam number of grandchildren Gene Tineo MD social history E&M S moking History: Jordana markham has never smoked. Gene Tineo MD social history reviewed E&M revi ewed - no changes required Gene Tineo MD alcohol use, average drinks per day <1 Anastasia Block alcohol use yes Anastasia Block smoking status Never smoker Anastasiaavelino Carter k FAMILY HISTORY Family Member Condition Father Family History of Di abetes: Mother Family History of Hy pertension: INSURANCE PROVIDERS Payer name Policy type / Coverage type [place] red constitution party ID AARP MEDICARE ADVANTAGE ST [address] (HMO POS) Medicare [id number] ADVANCE DIRECTIVES Name Date LIVING WILL ON FILE TREATMENT PLAN Date Name Performer Cardiology Rosangela Dc MD Cardiology: O rders: C omplete Echo (24578) C T, Coronary Calcium Score (CPT-17588) Rosangela Dc MD Cardiology: O rders: E KG (CPT-62432) C omplete Echo (41186) C T, Coronary Calcium Score (CPT-42596) Rosangela Dc MD Cardiology:Planned for total kne e replacement. Fei Melendez Cardiology:Continues on Omeprazo le. Fei Melendez Cardiology:Planned f or left knee total replacement. She will undergo echocardiogram as part of risk stratification to evaluate for wall motion abnormalities. If this is normal, she may undergo the procedure at an acceptable level of cardiovascular risk. Fei Melendez Date Name CT, Coronary Calcium Score Complete Echo Complete Echo HISTORY OF PROCEDURES Procedure Date Procedure Name Provider Procedure Notes S tatus CT- Coronary CA score Rosangela Dc MD completed EKG Rosangela Dc MD completed EKG Gene Tineo MD complet ed
--- OUTSIDE RECORDS SUMMARY | 2025-02-17 13:57 | XMS_ITS | Continuity of Care Document ---
Author Organization [facility] Address [address] [place] [address] Phone Care Team Providers Care Director Of Distribution Name Role Phone Encinas OD, Jhonny Unavailable Unavailable Procedures Procedure Date Contact Lens Hydrophilic, Spherical Sales Tax Contact Lens Hydrophilic, Spherical Medical Tax Eye Exam & Treatment Refraction Eye Exam Established Pt Contact Lens Hydrophilic, Spherical Taplister Medical Eye Exam Established Pt Eye Exam & Treatment Refraction CL Replacement - [employer] Other 009 Tax - Medical CL Replacement - [employer] Disp W/BW Soft Taplister Medical CL Replacement - [employer] Disp W/BW Soft EntraTympanic CL Replacement - [employer] Disp W/BW Soft Taplister Medical Eye Exam & Treatment Refraction CL Replacement - [employer] Disp W/BW Soft Taplister Medical CL Replacement - [employer] Disp W/BW Soft Taplister Medical CL Replacement - [employer] Disp W/BW Soft Sales Tax Eye Exam & Treatment CL Replacement - [employer] Disp W/BW Soft Tax - Medical Advance Directives Directive Yes / No Effective Date File Name No Information Encounters Encounter Description Practice Location Reason(s) For Visit Diagnoses Date Provider Providers Copied on Encounter [facility], [address] [place] [address] [address], [place], [place], [id number], tel:[phone] [facility] No Information Nov-1 8-201 0 Encinas OD Jhonny. [address] , [address], [place], [place], [facility], [place]. tel:[phone] [facility], [address] [place] [address] [address], [place], [place], [id number], tel:[phone] [facility] No Information Aug-0 3-201 0 Encinas OD Jhonny. [address], [place], [place], [facility], . tel:[phone] [facility], [address] [place] [address] [address], [place], [place], [id number], tel:[phone] [facility] No Information Earle-0 6-201 0 Encinas OD Jhonny. [address] [facility] [address], [address], [place], [facility], [place]. tel:[phone] [facility], [address] [place] [address] [address], [place], [place], [id number], tel:[phone] [facility] No Information Mar-0 3-201 0 Encinas OD Jhonny. [address], [place], [facility], [place]. tel:[phone] [facility], [address] [place] [address] [address], [place], [place], [id number], tel:[phone] [facility] No Information Feb-0 1-201 0 Encinas OD Jhonny. [address] [facility] [facility] [address], [address], [place], [facility], [place]. tel:[phone] [facility], [address], [place], [place], [address], [place] tel:[phone] [facility] No Information Apr-2 9-200 9 Encinas OD Jhonny. [address] , [address], [place], [facility], [place]. tel:[phone] [facility], [address] [place] [address] [address], [place], [place], [address], [place] tel:[phone] [facility] No Information Kyrie-0 3-200 9 Encinas OD Jhonny. [address] , [address], [place], [facility], [place]. tel:[phone] [facility], [address] [place] [address] [address], [place], [place], [address], [place] tel:[phone] [facility] No Information Oct-2 7-200 9 Encinas OD Jhonny. [address] , [address], [place], [facility], [place]. tel:[phone] [facility], [address] [place] [address] [address], [place], [place], [address], [place] tel:[phone] [facility] No Information Aug-2 6-200 8 Encinas OD Jhonny. [address] , [address], [place], [facility], [place]. tel:[phone] [facility], [address] [place] [address] [address], [place], [place], [address], [place] tel:[phone] [facility] No Information Apr-2 5-200 8 Encinas OD Jhonny. [address] , [address], [place], [address], [place]. tel:[phone] [facility], [address] [place] [address] [address], [place], [place], [address], tel:[phone] [facility] No Information Apr-2 3-200 8 Encinas OD Jhonny. [address] [place], [place] [address]ate Center , [address], [place], [address], . tel:[phone] [facility], [address] [place] [address] [address], [place], [place], [address], tel:[phone] [facility] No Information Malick-2 9-200 8 Encinas OD Jhonny. Count includes the [facility] , [address], [place], [address], . tel:[phone] [facility], [address] [place] [address] [address], [place], [place], [address], tel:[phone] [facility] No Information Sep-2 7-200 7 Encinas OD Jhonny. [address] [place], [place] [address]ate [address], [address], [place], [facility], [place]. tel:[phone] [facility], [address] [place] [address] [address], [place], [place], [address], tel:[phone] [facility] No Information Mar-0 9-200 7 Encinas OD Jhonny. [address] [place], [place] [address]ate [address], [address], [place], [address], . tel:[phone] Family History Family Member Type Diagnosis Age At Onset No Information Payers Payer name Insurance type Covered green party ID Authoriza tion(s) No Information Social History Type Description Quantity Date Captured Comments Sex Female Smoking Status No Information Chief Complaint And Reason For Visit No Information Reason For Referral Reason For Referral No Information History Of Present Illness Encounter Date Complaint History Of Prese nt Illness No Information Functional Status Date Functional Assessmen t No Information Instructions Date Instruction Additional Infor mation No Information Assessments Type Assessment Date No Information Patient Care Teams Name Effective Dates (start - stop) Status Members No Information
--- OUTSIDE RECORDS SUMMARY | 2025-02-17 13:57 | XMS_ITS | Clinical Summary ---
Author Organization [facility] Address [address] [facility] [place] [address] Care Team Providers Care Animal Care Taker Name Role Phone Kaleb Engel MD Primary Care Provider [phone] Source Comments [facility],non-owned Affiliates and Associated Physician Practices is amultiple site organization consisting of ambulatory clinics and hospital sitesin [place], [place], [place] and [place]. This disclosure is being madepursuant to the Care Everywhere program and may not contain all information available regarding this patient. Last updated 18.[facility] Allergies No known active allergies Medications * Be aware that medications may not be up to date on this document. Alwaysverify current medications with the patient. 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 Respiratory Rate 16 11/10/2016 9:08 AM 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 Oxygen Saturation - - Inhaled Oxygen Concentration - - Weight 61.2 kg (135 lb) 11/10/2016 9:08 AM 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 Height 154.9 cm (5' 1 ) 11/10/2016 9:08 AM 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 Body Mass Index 25.51 11/10/2016 9:08 AM 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 Plan of Treatment Health Maintenance Due Date Last Done Comments BONE DENSITY TESTING 1950 COLOGUARD (AGES 45-75) - COL ON CA SCREENING 1950 COLON MONITORING 1950 COLONOSCOPY - COLON CA SCREENING 1951 CT COLONOGRAPHY - COLON CA SCREENING 1950 Colorectal Cancer Screening 1950 FIT - COLON CA SCREENING 1950 FLEX SIG - COLON CA SCREENING 1950 LIPID TESTING 1950 MAMMOGRAM 1950 HEPATITIS C SCREENING 08/15/1969 DTAP/TDAP/TD VACCINES (1 - Tdap) 1970 PNEUMOCOCCAL VACCINE 50+ (1 of 1 - PCV) 2001 ZOSTER VACCINE (1 of 2) 2001 COVID-19 VACCINE (1 - 2023-2 5 season) 2024 DEPRESSION SCREENING 10/29/2024 INFLUENZA VACCINE (Season Ended) 2025 Respiratory Syncytial Virus (RSV) Vaccine Pt: or over 60 yrs (1 - 1-dose 75+ series) 2026 HEPATITIS B VACCINE Aged Out No longe r eligible based on patient's age to complete this topic HIB VACCINE Aged Out No longer eligi ble based on patient's age to complete this topic HPV VACCINE Aged Out No longer eligi ble based on patient's age to complete this topic MENINGOCOCCAL (Group B) VACC INE SHARED DECISION-MAKING Aged Out No longer eligibl e based on patient's age to complete this topic MENINGOCOCCAL GROUPS A/C/Y/W VACCINE Aged Out No longer eligible b ased on patient's age to complete this topic Insurance MEDICARE MEDICARE [facility] MANAG[facility] MEDICARE [facility] Care Teams Animal Care Taker Relationship Specialty Start Date End Date Kaleb Engel MD PCP - General 01/18/21
[2025-02-17 14:04] LABS: Basophils Absolute Auto 0.1 K/mm3 (0.0-0.1); Basophils Percent Auto 1.5 % (0.2-1.2); Eosinophils Absolute Auto 0.4 K/mm3 (0-0.3); Eosinophils Percent Auto 5.5 % (0-4.4); Hemoglobin 12.5 g/dL (12.0-15.0); Immature Granulocyte Absolute 0.01 K/mm3 (0.00-0.031); Immature Granulocyte Percent A 0.1 % (0-0.5); Immature Platelet Fraction Pct 40.8 % (0.9-11.2); Lymphocytes Absolute Auto 2.29 K/mm3 (0.9-3.2); Lymphocytes Percent Auto 32.2 % (18.3-44.2); Mean Corpuscular HGB Conc 32.9 g/dl (32-36); Mean Corpuscular Hemoglobin 32.6 pg (26-34); Monocytes Absolute Auto 0.8 K/mm3 (0.1-0.6); Monocytes Percent Auto 11.5 % (2.6-8.5); Neutrophils Absolute Auto 3.5 K/mm3 (1.3-6.7); Neutrophils Percent Auto 49.2 % (45.5-73.1); Platelet Count Result 143 k/mm3 (150-375); Red Blood Count 3.84 M/mm3 (4.2-5.4); Red Cell Distribution Width 13.2 % (11.5-14.5); White Blood Count 7.1 K/mm3 (4.5-10.0)
[2025-02-17 14:05] LABS: Platelet Estimate Decreased (Adequate); Schistocytes None Seen
[2025-02-17 14:09] LABS: Anisocytosis 1+
[2025-02-17 16:33] LABS: Alanine Aminotransferase 96 U/L (6-35); Albumin Level 4.4 g/dL (3.5-5.1); Alkaline Phosphatase 119 U/L (38-126); Anion Gap 10 mmol/L (4-12); Aspartate Amino Transferase 111 U/L (14-36); Bilirubin,Total 0.6 mg/dL (0.2-1.3); Blood Urea Nitrogen 13 mg/dL (7-17); Calcium 9.1 mg/dL (8.4-10.2); Carbon Dioxide 26 mmol/L (22-30); Chloride 103 mmol/L (98-107); Estimated Glomerular Filt Rate > 60; Glucose 123 mg/dL (65-110); Potassium 3.8 mmol/L (3.4-5.0); Sodium 139 mmol/L (137-145)
[2025-02-17 17:39] LABS: Folic Acid 15.9 ng/mL (2.76->20)
[2025-02-19 10:28] LABS: Protein, Total 7.1 g/dL (6.1-8.1)
[2025-02-19 18:39] LABS: Alpha 1 Globulin 0.3 g/dL (0.2-0.3); Alpha 2 Globulin 0.7 g/dL (0.5-0.9); Beta 1 Globulin 0.5 g/dL (0.4-0.6); Gamma Globulin 1.1 g/dL (0.8-1.7)
== END 2025-02-17 12:13 | disposition home or self-care (01) ==
LOC: ANHLAB 12:13
PROVIDERS: PCP Internal Medicine; Visit Provider Internal Medicine Hematology & Oncology
DX: D69.59 Other secondary thrombocytopenia (principal); D75.89 Other specified diseases of blood and blood-forming organs
CPT/HCPCS: 36415; 80053; 82607; 82746; 84155; 84165; 85025; 85055

== ENCOUNTER 2025-04-06 08:25 | Outpatient (CLI) | payer MEDICARE, SELFPAY ==
--- NOTE | ~2025-04-06 | US_ITS ---
Abdominal Sonogram: Real-time sonographic imaging of the abdomen was performed. Clinical History: Splenomegaly Findings: The liver appears normal with no evidence of mass lesion or bile duct dilatation. Main por lauren vein demonstrates normal direction of flow. The spleen is normal in size without evidence of foca l lesion. The gallbladder is absent, compatible prior cholecystectomy. The common bile duct measures 6 mm. The visualized pancreas, aorta, and IVC are unremarkable. The right kidney measures 9.7 cm i n length and the left kidney measures 9.0 cm. There is no hydronephrosis or renal calculus. Impression: Status post cholecystectomy, otherwise unremarkable exam. Reviewed, dictated and finalized at location M. Impression: Status post cholecystectomy, otherwise unremarkable exam.
--- OUTSIDE RECORDS SUMMARY | 2025-04-06 08:44 | XMS_ITS | Data Portability ---
Author Organization [facility], Main Office Address [address] [place] [address] Care Team Providers Care Dye Operator Name Role Phone CHRIS MOORE Primary Care Provider CHRIS MOORE Referring Provider [phone] Assessment Encounter Date Assessment Date Assessment LastModified by Organization Details LastModified Time 08/11/2024 08/11/2024 05/29/2024: Chol 218 MCV 101.0 Not available 08/11/2024 17:13:46 12/02/2024 12/02/2024 05/29/2024: Chol 218 MCV 101.0 11/24/2024: Chol 146<-chol 218 MCV 100.8, PLT 115 Not available 12/02/2024 11:41:33 03/10/2025 03/10/2025 05/29/2024: Chol 218 MCV 101.0 11/24/2024: Chol 146<-chol 218 MCV 100.8, PLT 115 03/03/2025: Chol 134 ALT 36 PLT 119 MCV 101.2 Not available 03/10/2025 11:35:44 Plan of Treatment Reminders Order Date Submit Date Provider Last Modified By Organization Details Last Modified Time Details Appointments Any 15 2024 09:30A M Juliocesar adkins MD Not available Not available Not available Lab lipid panel, serum 2024 025 [email or web address] [facility] (Lab), [address] [place], [address], 03/10/2025 11:47:04 CBC w/ auto diff [address] (Lab), [address] [place], [address], 03/10/2025 11:47:04 TSH, serum or plasma [address] (Lab), [address] [place], [address], 03/10/2025 11:47:05 CMP, serum or plasma [address] (Lab), [address] [place], [address], 03/10/2025 11:47:05 vitamin D, 25-hydrox y, total, serum [address] (Lab), [address] [place], [address], 03/10/2025 11:47:05 hepatitis panel (A+B+C), acute, serum [address] (Lab), [address] [place], [address], 03/17/2025 09:24:40 gamma-glu tamyl transfera se (ggt), serum [address] (Lab), [address] [place], [address], 03/17/2025 09:24:50 vitamin B12 + folate, serum or blood [address] (Lab), [address] [place], [address], 03/10/2025 11:47:05 lipid panel, serum [address] (Lab), [address] [place], [address], 01/14/2025 09:21:41 CBC w/ auto diff 2024 025 [facility] (Lab), [address] [place], [address], 02/17/2025 15:55:36 TSH, serum or plasma [address] (Lab), [address] [place], [address], 01/14/2025 09:21:58 CMP, serum or plasma 2024 025 [facility] (Lab), [address] [place], [address], 02/17/2025 17:53:44 vitamin D, 25-hydrox y, total, serum [address] (Lab), [address] [place], [address], 01/14/2025 09:22:19 vitamin B12 + folate, serum or blood 2024 025 [facility] (Lab), [address] [place], [address], 02/17/2025 17:53:44 urinalysi s complete, reflex culture [address] (Lab), [address] [place], [address], 08/18/2024 17:19:40 urinalysi s, dipstick 2023 024 [email or web address] [address], [place], [address], 08/11/2024 17:42:37 lipid panel, serum 2023 024 [facility] (Lab), [address] [place], [address], 11/26/2024 12:39:50 CBC w/ auto diff 2023 024 [facility] (Lab), [address] [place], [address], 11/26/2024 12:39:46 TSH, serum or plasma 2023 024 [facility] (Lab), [address] [place], [address], 11/26/2024 12:39:48 CMP, serum or plasma 2023 024 [facility] (Lab), [address] [place], [address], 11/26/2024 12:39:44 vitamin D, 25-hydrox y, total, serum 2023 024 [facility] (Lab), [address] [place], [address], 11/26/2024 12:39:49 vitamin B12 + folate, serum or blood 2023 024 [facility] (Lab), [address] [place], [address], 11/26/2024 12:39:47 lipid panel, serum 2023 024 [facility] (Lab), [address] [place], [address], 05/29/2024 17:50:49 CBC w/ auto diff 2023 024 [facility] (Lab), [address] [place], [address], 05/29/2024 17:42:20 TSH, serum or plasma 2023 024 [facility] (Lab), [address] [place], [address], 05/29/2024 19:03:17 CMP, serum or plasma 2023 024 [facility] (Lab), [address] [place], [address], 05/29/2024 17:50:55 vitamin D, 25-hydrox y, total, serum [address] (Lab), [address] [place], [address], 06/11/2024 14:31:01 vitamin B12 + folate, serum or blood [address] (Lab), [address] [place], [address], 06/11/2024 14:31:01 Referral hematolog ist referral - Please call patient to schedule an appointme nt. Thank you. 2024 025 RADHIKA Ferguson MD, [address], [place], [address], 03/10/2025 15:05:17 gastroent erologist referral - Please call patient to schedule an appointme nt. Thank you. 2024 025 RADHIKA Yancey MD, [address], [place], [address], 03/10/2025 15:06:28 urologist referral - Please call patient to schedule an appointme nt. Thank you. 2024 025 [email or web address] Chaparro Parnell MD, [address], [place], [address], 03/10/2025 14:49:10 hematolog ist referral 2024 025 MAJO Ferguson MD, [address], [place], [address], 02/18/2025 10:35:00 cardiolog ist referral - Please call patient to schedule an appointme nt. Thank you. 2024 025 [place], [address] , [address], [place], [address], 03/02/2025 16:53:38 gastroent erologist referral 2024 025 [email or web address] Maria L Yancey MD, [address], [address], [place], [address], 12/05/2024 10:58:23 urologist referral - Please call patient to schedule an appointme nt. Thank you. 2024 025 [email or web address] Chaparro Parnell MD, [address], [address], [place], [address], 01/06/2025 09:24:57 gastroent erologist referral 2023 024 Maria L Yancey MD, [address], [place], [address], 03/09/2025 08:55:03 urologist referral 2023 024 2 Chaparro Parnell MD, [address], [address], [place], [address], 02/09/2025 09:18:32 gastroent erologist referral 2023 024 [email or web address] Maria L Yancey MD, [address], [place], [address], 07/03/2024 09:19:42 urologist referral 2023 024 [email or web address] Chaparro Parnell MD, [address] [place] [address] [address], [place], [address], 01/06/2025 09:24:23 Procedures None recorded. Surgeries None recorded. Imaging MAMMO, screening , digital, bilateral - Please call patient to schedule. Patient prefers [facility] location* * [address] Patient Access Centralized Scheduling, Centralized Scheduling, [address] [place], [address], 01/07/2025 11:07:08 MAMMO, screening , digital, bilateral [address] (One Call Scheduling), [address] [place], [address], 08/13/2024 10:52:40 MAMMO, screening , digital, bilateral [address] ([facility] Call Scheduling), [address] [place], [address], 06/26/2024 09:20:38 DEXA, axial skeleton 2023 024 [facility] (One Call Scheduling), [address] [place], [address], 06/04/2024 16:18:50 Medication Orders Voquezna 20 mg tablet 2023 024 [email or web address] [id number], [address], [place], [place], [id number], 08/11/2024 17:09:38 Patient TargetsNo targets recorded. Patient InstructionsNo instructions recorded. Reason for Referral Urologist Referral for Urina ry incontinence Referring Physician: Juliocesar Leal, Internal Medicine, Encounter Date: 05/29/2024 Form Tamping Machine Operator Referral for Conde's esophagus Referring Physician: Juliocesar Leal Internal Medicine, Encounter Date: 05/29/2024 Urologist Referral for Urina ry incontinence Referring Physician: Juliocesar Leal Internal Medicine, Encounter Date: 08/11/2024 Form Tamping Machine Operator Referral for Conde's esophagus Referring Physician: Tika Bailey Medicine, Encounter Date: 08/11/2024 Urologist Referral for Urina ry incontinence Please call patient to schedule an appointment. Thank you. Referring Physician: Juliocesar Leal Internal Medicine, Encounter Date: 12/02/2024 Form Tamping Machine Operator Referral for Conde's esophagus Referring Physician: Juliocesar Leal Internal Medicine, Encounter Date: 12/02/2024 Vice President Of Sales Referral for Sc reening for cardiovascular system disease Please call patient to schedule an appointment. Thank you. Referring Physician: Tika Bailey Medicine, Encounter Date: 12/02/2024 Referring Physician: Juliocesar Leal Internal Medicine, Encounter Date: 12/02/2024 Urologist Referral for Urina ry incontinence Please call patient to schedule an appointment. Thank you. Referring Physician: Tika Bailey Medicine, Encounter Date: 03/10/2025 Form Tamping Machine Operator Referral for Conde's esophagus Please call patient to schedule an appointment. Thank you. Referring Physician: Tika Bailey Medicine, Encounter Date: 03/10/2025 Please call patient to sched ule an appointment. Thank you. Referring Physician: Tika Bailey, Encounter Date: 03/10/2025 Results Created Date Observation Date Name Description Value Unit Range Abnormal Flag Note LastModifiedBy Organization Detail LastModifiedTime 05/29/20 24 05/29/2024 CBC/C OMPLE TE BLD COUNT W/DIF F white blood cells 6.9 x10'3 /uL 4.2-10 .8 Not Available [facility] (Lab) [address] [place], [address], 05/29/2024 17:42:20 05/29/20 24 05/29/2024 CBC/C OMPLE TE BLD COUNT W/DIF F red blood cells 4.15 x10'6 /uL 3.80-5 .20 Not Available [facility] (Lab) [address] [place], [address], 05/29/2024 17:42:20 05/29/20 24 05/29/2024 CBC/C OMPLE TE BLD COUNT W/DIF F hemoglobin 13.4 g/dL 12.0-1 5.6 Not Available [facility] (Lab) [address] [place], [address], 05/29/2024 17:42:20 05/29/20 24 05/29/2024 CBC/C OMPLE TE BLD COUNT W/DIF F hematocrit 41.9 % 35.7-4 5.7 Not Available [facility] (Lab) [address] [place], [address], 05/29/2024 17:42:20 05/29/20 24 05/29/2024 CBC/C OMPLE TE BLD COUNT W/DIF F mean red cell volume 101.0 fL 82.0-9 9.0 high Not Available [facility] (Lab) [address] [place], [address], 05/29/2024 17:42:20 05/29/20 24 05/29/2024 CBC/C OMPLE TE BLD COUNT W/DIF F mean red cell hemoglobin 32.3 pg 27.0-3 3.0 Not Available [facility] (Lab) [address] [place], [address], 05/29/2024 17:42:20 05/29/20 24 05/29/2024 CBC/C OMPLE TE BLD COUNT W/DIF F mean RBC HGB concentratio n 32.0 g/dL 31.0-3 6.0 Not Available [facility] (Lab) [address] [place], [address], 05/29/2024 17:42:20 05/29/20 24 05/29/2024 CBC/C OMPLE TE BLD COUNT W/DIF F red cell distribution width 13.3 % 11.8-1 5.5 Not Available [facility] (Lab) [address] [place], [address], 05/29/2024 17:42:20 05/29/20 24 05/29/2024 CBC/C OMPLE TE BLD COUNT W/DIF F platelets 152 x10'3 /uL 150-40 0 Not Available [facility] (Lab) [address] [place], [address], 05/29/2024 17:42:20 05/29/20 24 05/29/2024 CBC/C OMPLE TE BLD COUNT W/DIF F neutrophils 54.8 % 39.0-7 2.0 Not Available [facility] (Lab) [address] [place], [address], 05/29/2024 17:42:20 05/29/20 24 05/29/2024 CBC/C OMPLE TE BLD COUNT W/DIF F lymphocytes 28.7 % 16.0-4 7.0 Not Available [facility] (Lab) [address] [place], [address], 05/29/2024 17:42:20 05/29/20 24 05/29/2024 CBC/C OMPLE TE BLD COUNT W/DIF F monocytes 10.6 % 5.0-12 .0 Not Available [facility] (Lab) [address] [place], [address], 05/29/2024 17:42:20 05/29/20 24 05/29/2024 CBC/C OMPLE TE BLD COUNT W/DIF F eosinophils 3.9 % 1.0-7. 0 Not Available [facility] (Lab) [address] [place], [address], 05/29/2024 17:42:20 05/29/20 24 05/29/2024 CBC/C OMPLE TE BLD COUNT W/DIF F basophils 1.7 % 0.0-2. 0 Not Available [facility] (Lab) [address] [place], [address], 05/29/2024 17:42:20 05/29/20 24 05/29/2024 CBC/C OMPLE TE BLD COUNT W/DIF F immature granulocytes 0.3 % 0.00-0 .50 Not Available [facility] (Lab) [address] [place], [address], 05/29/2024 17:42:20 05/29/20 24 05/29/2024 CBC/C OMPLE TE BLD COUNT W/DIF F neutrophils, absolute count 3.78 x10'3 /uL 1.5-8. 0 Not Available [facility] (Lab) [address] [place], [address], 05/29/2024 17:42:20 05/29/20 24 05/29/2024 CBC/C OMPLE TE BLD COUNT W/DIF F lymphocytes, absolute count 1.98 x10'3 /uL 1.07-3 .43 Not Available [facility] (Lab) [address] [place], [address], 05/29/2024 17:42:20 05/29/20 24 05/29/2024 CBC/C OMPLE TE BLD COUNT W/DIF F monocytes, absolute count 0.73 x10'3 /uL 0.29-0 .99 Not Available [facility] (Lab) [address] [place], [address], 05/29/2024 17:42:20 05/29/20 24 05/29/2024 CBC/C OMPLE TE BLD COUNT W/DIF F eosinophils, absolute count 0.27 x10'3 /uL 0.02-0 .53 Not Available [facility] (Lab) [address] [place], [address], 05/29/2024 17:42:20 05/29/20 24 05/29/2024 CBC/C OMPLE TE BLD COUNT W/DIF F basophils, absolute count 0.12 x10'3 /uL 0.01-0 .08 high Not Available [facility] (Lab) [address] [place], [address], 05/29/2024 17:42:20 05/29/20 24 05/29/2024 CBC/C OMPLE TE BLD COUNT W/DIF F immature granulocytes ,absolute 0.02 x10'3 /uL 0.00-0 .05 Not Available [facility] (Lab) [address] [place], [address], 05/29/2024 17:42:20 05/29/20 24 05/29/2024 CBC/C OMPLE TE BLD COUNT W/DIF F nucleated red blood cells 0.0 % -0 Not Available [facility] (Lab) [address] [place], [address], 05/29/2024 17:42:20 05/29/20 24 05/29/2024 CBC/C OMPLE TE BLD COUNT W/DIF F NRBC# 0.00 x10'3 /uL Not Available [facility] (Lab) [address] [place], [address], 05/29/2024 17:42:20 05/29/20 24 05/29/2024 LIPID PANEL cholesterol 218 mg/dL 140-19 9 high NIH KRISTY NSUS RECOM MENDA TION FOR JONATHAN STERO L: ADULT CHILD LOW RISK: <200 <170 BORDE RLINE : <200- 239 ----- HIGH RISK: >240 >200 Not Available [facility] (Lab) [address] [place], [address], 05/29/2024 17:50:49 05/29/20 24 05/29/2024 LIPID PANEL triglyceride s 76 mg/dL 0-150 NIH KRISTY NSUS REPOR T RECOM MENDA TION FOR TRIGL YCERI FERNY: ADULT CHILD LOW RISK: <150 ----- BODER LINE: 150-1 99 ----- HIGH RISK: >200 ----- Not Available [facility] (Lab) [address] [place], [address], 05/29/2024 17:50:49 05/29/20 24 05/29/2024 LIPID PANEL HDL cholesterol 107 mg/dL 40- Not Available [facility] (Lab) [address] [place], [address], 05/29/2024 17:50:49 05/29/20 24 05/29/2024 LIPID PANEL [...] WILL NOT BE REPOR KAPIL. Not Available [facility] (Lab) [address] [place], [address], 05/29/2024 17:50:49 05/29/2005/29/2024 COMPR EHENS BOLIVAR METAB OLIC PANEL sodium 140 mmol/ L 137-14 5 Not Available [facility] (Lab) [address] [place], [address], 05/29/2024 17:50:55 05/29/20 24 05/29/2024 COMPR EHENS BOLIVAR METAB OLIC PANEL potassium 4.3 mmol/ L 3.5-5. 1 Not Available [facility] (Lab) [address] [place], [address], 05/29/2024 17:50:55 05/29/20 24 05/29/2024 COMPR EHENS BOLIVAR METAB OLIC PANEL chloride 107 mmol/ L 98-107 Not Available [facility] (Lab) [address] [place], [address], 05/29/2024 17:50:55 05/29/20 24 05/29/2024 COMPR EHENS BOLIVAR METAB OLIC PANEL carbon dioxide 24 mmol/ L 22-30 Not Available [facility] (Lab) [address] [place], [address], 05/29/2024 17:50:55 05/29/20 24 05/29/2024 COMPR EHENS BOLIVAR METAB OLIC PANEL anion gap 13.3 mmol/ L 14-22 low Not Available [facility] (Lab) [address] [place], [address], 05/29/2024 17:50:55 05/29/20 24 05/29/2024 COMPR EHENS BOLIVAR METAB OLIC PANEL glucose 93 mg/dL 70-99 Not Available [facility] (Lab) [address] [place], [address], 05/29/2024 17:50:55 05/29/20 24 05/29/2024 COMPR EHENS BOLIVAR METAB OLIC PANEL BUN 13 mg/dL 8-19 Not Available [facility] (Lab) [address] [place], [address], 05/29/2024 17:50:55 05/29/20 24 05/29/2024 COMPR EHENS BOLIVAR METAB OLIC PANEL creatinine 0.78 mg/dL 0.66-1 .25 Not Available [facility] (Lab) [address] [place], [address], 05/29/2024 17:50:55 05/29/20 24 05/29/2024 COMPR EHENS BOLIVAR METAB OLIC PANEL GFR >60 Refer ence Range : Adams ge GFR Healt hy Adult : >60 mL/mi n/1.7 3 m2 Chron ic Kidne y Disea se: 15-60 mL/mi n/1.7 3 m2 Kidne y Failu re: <15/m L/min /1.73 m2 www.n iddk. [facility].g ov The MDRD study equat ion has [...] calcu lator is avail able on the [facility] websi te: https ://meche saleh.abdiel martin.o rg/pr ofess ional s/kdo qi/gf r_cal culat or Not Available [facility] (Lab) [address] [place], [address], 05/29/2024 17:50:55 05/29/20 24 05/29/2024 COMPR EHENS BOLIVAR METAB OLIC PANEL alkaline phosphatase 96 U/L 38-126 Not Available [facility] (Lab) [address] [place], [address], 05/29/2024 17:50:55 05/29/20 24 05/29/2024 COMPR EHENS BOLIVAR METAB OLIC PANEL alanine aminotransfe rase 18 U/L 0-35 Not Available [facility] (Lab) [address] [place], [address], 05/29/2024 17:50:55 05/29/20 24 05/29/2024 COMPR EHENS BOLIVAR METAB OLIC PANEL aspartate aminotransfe rase 30 U/L 15-37 Not Available [facility] (Lab) [address] [place], [address], 05/29/2024 17:50:55 05/29/20 24 05/29/2024 COMPR EHENS BOLIVAR METAB OLIC PANEL bilirubin, total 0.80 mg/dL 0.20-1 .30 Not Available [facility] (Lab) [address] [place], [address], 05/29/2024 17:50:55 05/29/20 24 05/29/2024 COMPR EHENS BOLIVAR METAB OLIC PANEL calcium 9.9 mg/dL 8.4-10 .2 Not Available [facility] (Lab) [address] [place], [address], 05/29/2024 17:50:55 05/29/20 24 05/29/2024 COMPR EHENS BOLIVAR METAB OLIC PANEL total protein 7.9 g/dL 6.3-8. 2 Not Available [facility] (Lab) [address] [place], [address], 05/29/2024 17:50:55 05/29/20 24 05/29/2024 COMPR EHENS BOLIVAR METAB OLIC PANEL albumin 4.6 g/dL 3.0-4. 4 high Not Available [facility] (Lab) [address] [place], [address], 05/29/2024 17:50:55 05/29/20 24 05/29/2024 COMPR EHENS BOLIVAR METAB OLIC PANEL globulin 3.3 g/dL 2.6-4. 2 Not Available [facility] (Lab) [address] [place], [address], 05/29/2024 17:50:55 05/29/20 24 05/29/2024 COMPR EHENS BOLIVAR METAB OLIC PANEL A/G ratio 1.4 ratio 1.0-2. 0 Not Available [facility] (Lab) [address] [place], [address], 05/29/2024 17:50:55 05/29/20 24 05/29/2024 VITAM IN D 25-HY DROXY vd25oh 50.3 NG/mL 30-100 Vitam in D Statu s: Defic ient: <20 ng/mL Insuf ficie nt: 20-29 ng/mL Suffi cient : 30-10 0 ng/mL Not Available [facility] (Lab) [address] [place], [address], 05/29/2024 18:01:12 05/29/20 24 05/29/2024 VITAM IN B12 (KENNETH MARIBEL ) vb12 357 pg/mL 239-93 1 Not Available [facility] (Lab) [address] [place], [address], 05/29/2024 18:47:45 05/29/20 24 05/29/2024 FOLAT E, SERUM /PLAS MA folate 13.1 NG/mL 2.76-2 0.0 Not Available [facility] (Lab) [address] [place], [address], 05/29/2024 18:47:50 05/29/20 24 05/29/2024 TSH W/REF AGATA FT4 TSH with reflex free T4 1.080 uIU/m L 0.465- 4.680 Not Available [facility] (Lab) [address] [place], [address], 05/29/2024 19:03:17 08/11/20 24 08/11/2024 urina lysis , dipst ick Leukocytes (reference range: negative royal/ l) Small Not Available [address] [place] [address], [place], [address], 08/11/2024 17:33:27 08/11/20 24 08/11/2024 urina lysis , dipst ick Nitrite (reference rage: negative mg/dl) positi ve Not Available [address] [place], [address], 08/11/2024 17:33:27 08/11/20 24 08/11/2024 urina lysis , dipst ick Urobilinogen (reference range: 0.2-1 mg/dl) 0.2 Not Available [address] [place] [address], [place], [address], 08/11/2024 17:33:27 08/11/20 24 08/11/2024 urina lysis , dipst ick Protein (reference range: negative mg/dl) Trace Not Available [address] [place], [address], 08/11/2024 17:33:27 08/11/20 24 08/11/2024 urina lysis , dipst ick pH (reference range: 5-7) 6.0 Not Available [address] [place], [place], [address], 08/11/2024 17:33:27 08/11/20 24 08/11/2024 urina lysis , dipst ick Blood (reference range: negative Patrick/ l) Small Not Available [address] [place], [address], 08/11/2024 17:33:27 08/11/20 24 08/11/2024 urina lysis , dipst ick Specific [place] (reference range: 1.005-1.030) 1.005 Not Available [address] [place] [address], [place], [address], 08/11/2024 17:33:27 08/11/2008/11/2024 urina lysis , dipst ick Ketone (reference range: negative mg/dl) Negati ve Not Available [address] [place] [address], [place], [address], 08/11/2024 17:33:27 08/11/2008/11/2024 urina lysis , dipst ick Bilirubin (reference range: negative mg/dl) Negati ve Not Available [address] [place] [address], [place], [address], 08/11/2024 17:33:27 08/11/2008/11/2024 urina lysis , dipst ick Glucose (reference range: negative mg/dl) Negati ve Not Available [address] [place], [place], [address], 08/11/2024 17:33:27 08/11/20 24 08/11/2024 urina lysis , dipst ick Appearance Clear Not Available [address] [place] [address], [place], [address], 08/11/2024 17:33:27 08/11/2008/11/2024 urina lysis , dipst ick Color Pale Yellow Not Available [address] [place], [place], [address], 08/11/2024 17:33:27 11/24/19 25 11/25/2024 LIPID PANEL , STAND NOMI cholesterol, total 146 mg/dL <200 normal Not Available [facility] [address] [place], [address], 11/25/2024 06:38:54 11/24/1911/25/2024 LIPID PANEL , STAND NOMI HDL cholesterol 84 mg/dL > or = 50 normal Not Available [facility] [address] [place], [address], 11/25/2024 06:38:54 11/24/1911/25/2024 LIPID PANEL , STAND NOMI triglyceride s 68 mg/dL <150 normal Not Available [facility] [address], [address], 11/25/2024 06:38:54 11/24/1911/25/2024 LIPID PANEL , STAND NOMI LDL-choleste rol 48 mg/dL _(gary c) normal Refer ence range : <100 Bandar able range <100 mg/dL for prima ry preve ntion ; <70 mg/dL for patie nts with CHD or diabe tic patie nts with > or = 2 CHD risk facto rs. LDL-C is now calcu lated using the Cheri n-Hop kins kellyu cindy n, which is a valid ated novel remi lemon than the Fried camden equat ion in the estim ation of LDL-C . Cheri martinez SS et al. CARLOS. 2013; 310(1 9): 2061- 2068 (http ://ed ucati on.Jeancarlos justice TATE'S LISTs. com/f aq/FA Q164) Not Available [facility] [place] [address] [place], [address], 11/25/2024 06:38:54 11/24/1911/25/2024 LIPID PANEL , STAND NOMI chol/HDLC ratio 1.7 (calc ) <5.0 normal Not Available [facility] [address] [place], [address], 11/25/2024 06:38:54 11/24/19 25 11/25/2024 LIPID PANEL , STAND NOMI non HDL cholesterol 62 mg/dL _(gary c) <130 normal For patie nts with diabe guille plus 1 major ASCVD risk facto r, treat ing to a non-H DL-C goal of <100 mg/dL (LDL- C of <70 mg/dL ) is davi villafana optio n. Not Available [address], [address], 11/25/2024 06:38:54 11/24/19 25 11/25/2024 COMPR EHENS BOLIVAR METAB OLIC PANEL glucose 97 mg/dL 65-99 normal Fasti ng refer ence inter neelam Not Available [address], [address], 11/25/2024 06:38:55 11/24/19 25 11/25/2024 COMPR EHENS BOLIVAR METAB OLIC PANEL urea nitrogen (BUN) 10 mg/dL 7-25 normal Not Available [address], [address], 11/25/2024 06:38:55 11/24/19 25 11/25/2024 COMPR EHENS BOLIVAR METAB OLIC PANEL creatinine 0.68 mg/dL 0.60-1 .00 normal Not Available [address], [address], 11/25/2024 06:38:55 11/24/19 25 11/25/2024 COMPR EHENS BOLIVAR METAB OLIC PANEL eGFR 92 mL/mi n/1.7 3m2 > or = 60 normal Not Available [address], [address], 11/25/2024 06:38:55 11/24/19 25 11/25/2024 COMPR EHENS BOLIVAR METAB OLIC PANEL BUN/creatini ne ratio SEE NOTE: (calc ) 6-22 Not Repor kapil: BUN and Creat inine are withi n refer ence range . Not Available [address], [address], 11/25/2024 06:38:55 11/24/19 25 11/25/2024 COMPR EHENS BOLIVAR METAB OLIC PANEL sodium 142 mmol/ L 135-14 6 normal Not Available [address], [address], 11/25/2024 06:38:55 11/24/1911/25/2024 COMPR EHENS BOLIVAR METAB OLIC PANEL potassium 4.1 mmol/ L 3.5-5. 3 normal Not Available [address], [address], 11/25/2024 06:38:55 11/24/19 25 11/25/2024 COMPR EHENS BOLIVAR METAB OLIC PANEL chloride 107 mmol/ L 98-110 normal Not Available [address], [address], 11/25/2024 06:38:55 11/24/19 25 11/25/2024 COMPR EHENS BOLIVAR METAB OLIC PANEL carbon dioxide 27 mmol/ L 20-32 normal Not Available [address], [address], 11/25/2024 06:38:55 11/24/19 25 11/25/2024 COMPR EHENS BOLIVAR METAB OLIC PANEL calcium 9.5 mg/dL 8.6-10 .4 normal Not Available [address], [address], 11/25/2024 06:38:55 11/24/19 25 11/25/2024 COMPR EHENS BOLIVAR METAB OLIC PANEL protein, total 6.7 g/dL 6.1-8. 1 normal Not Available [address], [address], 11/25/2024 06:38:55 11/24/19 25 11/25/2024 COMPR EHENS BOLIVAR METAB OLIC PANEL albumin 4.0 g/dL 3.6-5. 1 normal Not Available [address], [address], 11/25/2024 06:38:55 11/24/19 25 11/25/2024 COMPR EHENS BOLIVAR METAB OLIC PANEL globulin 2.7 g/dL_ (calc ) 1.9-3. 7 normal Not Available [address], [address], 11/25/2024 06:38:55 11/24/19 25 11/25/2024 COMPR EHENS BOLIVAR METAB OLIC PANEL albumin/glob ulin ratio 1.5 (calc ) 1.0-2. 5 normal Not Available [address], [address], 11/25/2024 06:38:55 11/24/19 25 11/25/2024 COMPR EHENS BOLIVAR METAB OLIC PANEL bilirubin, total 0.6 mg/dL 0.2-1. 2 normal Not Available [address], [address], 11/25/2024 06:38:55 11/24/19 25 11/25/2024 COMPR EHENS BOLIVAR METAB OLIC PANEL alkaline phosphatase 72 U/L 37-153 normal Not Available [address], [address], 11/25/2024 06:38:55 11/24/19 25 11/25/2024 COMPR EHENS BOLIVAR METAB OLIC PANEL AST 16 U/L 10-35 normal Not Available [address], [address], 11/25/2024 06:38:55 11/24/19 25 11/25/2024 COMPR EHENS BOLIVAR METAB OLIC PANEL ALT 15 U/L 6-29 normal Not Available [address], [address], 11/25/2024 06:38:55 11/24/1911/25/2024 CBC (INCL UDES DIFF/ PLT) white blood cell count 6.8 thous and/u L 3.8-10 .8 normal Not Available [address], [address], 11/25/2024 06:38:56 11/24/1911/25/2024 CBC (INCL UDES DIFF/ PLT) red blood cell count 3.82 sandi on/uL 3.80-5 .10 normal Not Available [address], [address], 11/25/2024 06:38:56 11/24/1911/25/2024 CBC (INCL UDES DIFF/ PLT) hemoglobin 12.4 g/dL 11.7-1 5.5 normal Not Available [address], [address], 11/25/2024 06:38:56 11/24/1911/25/2024 CBC (INCL UDES DIFF/ PLT) hematocrit 38.5 % 35.0-4 5.0 normal Not Available [address], [address], 11/25/2024 06:38:56 11/24/1911/25/2024 CBC (INCL UDES DIFF/ PLT) MCV 100.8 fL 80.0-1 00.0 high Not Available [address], [address], 11/25/2024 06:38:56 11/24/1911/25/2024 CBC (INCL UDES DIFF/ PLT) MCH 32.5 pg 27.0-3 3.0 normal Not Available [address], [address], 11/25/2024 06:38:56 11/24/1911/25/2024 CBC (INCL UDES DIFF/ PLT) MCHC 32.2 g/dL 32.0-3 6.0 normal For adult s, a sligh t decre ase in the calcu lated MCHC value (in the range of 30 to 32 g/dL) is most likel y not clini alexandre signi fican t; [place], it shoul d be inter prete d with cauti on in corre latio n with other red cell vickey eters and the patie nt's clini gary condi tion. Not Available [facility] [address] [address] [place], [address], 11/25/2024 06:38:56 11/24/1911/25/2024 CBC (INCL UDES DIFF/ PLT) RDW 12.5 % 11.0-1 5.0 normal Not Available [facility] [address], [address], 11/25/2024 06:38:56 11/24/1911/25/2024 CBC (INCL UDES DIFF/ PLT) platelet count 115 thous and/u L 140-40 0 low Not Available [facility] [address], [address], 11/25/2024 06:38:56 11/24/1911/25/2024 CBC (INCL UDES DIFF/ PLT) MPV fL 7.5-12 .5 Due to plate let or RBC varia bilit y in size or shape the resul t canno t be repor kapil accur ately . Not Available [facility] [address] [address] [place], [address], 11/25/2024 06:38:56 11/24/1911/25/2024 CBC (INCL UDES DIFF/ PLT) absolute neutrophils 4352 cells /uL 1500-7 800 normal Not Available [facility] [address], [address], 11/25/2024 06:38:56 11/24/1922 1111/25/2024 CBC (INCL UDES DIFF/ PLT) absolute lymphocytes 1632 cells /uL 850-39 00 normal Not Available [address], [address], 11/25/2024 06:38:56 11/24/19 25 11/25/2024 CBC (INCL UDES DIFF/ PLT) absolute monocytes 408 cells /uL 200-95 0 normal Not Available [facility] [address], [address], 11/25/2024 06:38:56 11/24/1911/25/2024 CBC (INCL UDES DIFF/ PLT) absolute eosinophils 408 cells /uL 15-500 normal Not Available [address], [address], 11/25/2024 06:38:56 11/24/1911/25/2024 CBC (INCL UDES DIFF/ PLT) absolute basophils 0 cells /uL 0-200 normal Not Available [facility] [address], [address], 11/25/2024 06:38:56 11/24/19 25 11/25/2024 CBC (INCL UDES DIFF/ PLT) neutrophils 64 % normal Not Available [facility] [address], [address], 11/25/2024 06:38:56 11/24/19 25 11/25/2024 CBC (INCL UDES DIFF/ PLT) lymphocytes 24 % normal Not Available [facility] [address], [address], 11/25/2024 06:38:56 11/24/19 25 11/25/2024 CBC (INCL UDES DIFF/ PLT) monocytes 6 % normal Not Available [facility] [address], [address], 11/25/2024 06:38:56 11/24/19 25 11/25/2024 CBC (INCL UDES DIFF/ PLT) eosinophils 6 % normal Not Available [address], [address], 11/25/2024 06:38:56 11/24/19 25 11/25/2024 CBC (INCL UDES DIFF/ PLT) basophils 0 % normal Not Available [address], [address], 11/25/2024 06:38:56 11/24/1911/25/2024 VITAM IN B12/F OLATE , SERUM PANEL vitamin B12 973 pg/mL 200-11 00 normal Not Available [address], [address], 11/25/2024 06:38:56 11/24/1911/25/2024 VITAM IN B12/F OLATE , SERUM PANEL folate, serum 12.8 NG/mL normal Refer ence Range Low: <3.4 Borde rline : 3.4-5 .4 Stephanie l: >5.4 Not Available [address], [address], 11/25/2024 06:38:56 11/24/1911/25/2024 TSH TSH 1.49 mIU/L 0.40-4 .50 normal Not Available [address], [address], 11/25/2024 06:38:56 11/24/1911/25/2024 VITAM IN D,25- [place],TO [...] /MS is recom buzz d: order code 99119 (sandoval ents >2yrs ). See Note 1 Note 1 For addit ional infor manuel cobb e refer to http: //[facility] Farley stDia gnost ics.c om/fa q/FAQ 199 (This link is being provi ded for infor dustin dillard/ educa rangel l purpo ses only. ) Not Available [facility] [address] [address] , [place], [address], 11/25/2024 06:38:57 06/04/20 24 06/04/2024 DEXA, axial skele ton [facility] [address] [place] [address] [phone] Patien t Name: RAINE BLAIR Access ion #: [id number] Sex: F : 1949 7 Dictat ed By: Kelby Stephenson Attend ing Physic ellie: MANOHAR GIBBS Ordermignon Physic ellie: MANOHAR GIBBS Exam Date: 2023 [...] ent. T-scor e: compar ju by viridiana olivares deviat ion (SD) to a young adult popula tion, matche d for sex and ethnic ity (used for postme nopaus al women and men >50 years) and classi fied by WHO criter ia. -1.0: normal Page 1 [facility] [address] [place] [address] Patimo t Name: DIRKJOSEPHINE SAAVEDRA RAINE Caputo Access ion #: [id number] Sex: F : 1949 7 Dictat ed By: Kelby Stephenson Attend ing Physic ellie: GAY HASTINGS Physic ellie: MANOHAR GIBBS Exam Date: 2023 [...] 2023 15:16: 40 PM Page 2 [facility] (Imaging) [address] [place], [address], 06/04/2024 16:18:50 01/14/20 25 01/09/2025 imagi ng/di agnos tic resul t No observ ation record ed. [facility] [address] [facility] [address], [place], [address], 01/13/2025 14:14:09 02/11/20 25 02/10/2025 imagi ng/di agnos tic resul t No observ ation record ed. [facility] [address] , [place], [address], 02/10/2025 18:05:52 02/11/20 25 02/10/2025 imagi ng/di agnos tic resul t No observ ation record ed. [facility] [address], [place], [address], 02/10/2025 18:05:59 02/11/20 25 02/10/2025 imagi ng/di agnos tic resul t No observ ation record ed. [facility] [address] [facility] [address], [place], [address], 02/10/2025 18:48:57 02/11/20 25 02/10/2025 imagi ng/di agnos tic resul t No observ ation record ed. [facility] [address] , [place], [address], 02/10/2025 19:00:29 Result Notes None recorded. 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 [address] [facility], [facility] [address], [place], [address] , [facility] [employer] 4 07:47:16 Localized swelling, mass and lump, neck Completed Not Available [facility] 3 06:14:44 Current tear of medial cartilage AND/OR meniscus of knee Active Not Available [facility] 3 06:14:44 Pain in left foot 36497124458 9107 Active 2021 Not Available [facility] 3 06:14:44 Vitamin D deficienc y 95709207 Active 2016 Not Available [facility] 3 06:14:44 Biliary colic 56697136 Completed Not Available [facility] 3 06:14:44 Osteoarth ritis 390719512 Active Rehana Dover APRN [address], [place], [address] , [email or web address] [facility] [employer] [facility] 4 07:47:31 Dysphagia 36728092 Completed Not Available [facility] 3 06:14:44 Pain of left knee joint 11906447863 4107 Active 2021 Not Available [facility] 3 06:14:44 Foot pain 89300703 Active 2021 Not Available [facility] 3 06:14:44 Hyperlipi demia 54735173 Active Rehana Dover APRN [address], [place], [address] , [email or web address] [facility] [employer] [facility] 4 07:47:21 Essential hypertens ion 24065308 Completed Not Available [facility] 3 06:14:44 Urinary tract infectiou s disease 96603759 Completed Not Available [facility] 3 06:14:44 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 2021 Not Available [facility] 3 06:14:45 Epigastri c pain 52230925 Active Not Available [facility] 3 06:14:45 Pain in limb 27674937 Active Not Available [facility] 3 06:14:45 Onychomyc osis 895060905 Active 2022 Rehana Dover APRN [address], [place], [address] , [email or web address] [facility] [employer] [facility] 4 07:47:23 Thrombocy topenic disorder 777590721 Active 2022 GISELLE Stevenson [address], [place], [address] , [place] [facility] 3 17:06:57 Urinary incontine nce 198986922 Active 2022 Rehana Dover APRN [address], [place], [address] , [place] [facility] 4 07:47:36 Conde's esophagus 788919764 Active 2022 Rehana Dover APRN [address], [place], [address] , [place] [facility] 4 07:47:11 Urinary symptoms 853684906 Active 2022 GISELLE Stevenson [address], [place], [address] , [place] [facility] 3 17:07:13 Overweigh t 124837847 Active 2022 GISELLE Stevenson [address], [place], [address] , [facility] 3 17:07:24 Gastroeso phageal reflux disease without esophagit is 775820486 Active 2022 Rehana Dover APRN [address], [place], [address] , [place] [facility] 4 07:47:18 Pain of left hip joint 13433470161 9100 Active 2022 GISELLE Stevenson [address], [place], [address] , [facility] 3 12:48:04 Eruption 645162880 Active 2022 Kamryn richardson, [facility] 3 16:45:30 Acute urinary tract infection 454186268 Active 2022 Heather richardson, [facility] 3 17:27:06 Diverticu litis 274957450 Active 2023 Rehana Dover APRN [address], [place], [address] , [facility] [employer] [facility] [employer] [facility] 4 12:03:44 Hernia of abdominal cavity 39373909 Active 2023 Rehana Dover APRN [address], [place], [address] , [facility] [employer] [facility] [employer] [facility] 4 12:04:07 Serum vitamin B12 below reference range 775794892 Active 2023 Juliocesar rhoades MD [address], [place], [address] , [email or web address] [facility] [employer] 4 12:26:00 Liver enzymes level above reference range 989909933 Active 2024 Juliocesar rhoades MD [address], [facility] [address], [place], [address] , [employer] 5 11:36:59 Problem Notes None recorded. Procedures Surgical History Date Name Laterality Status Provider Name and Address Organization Details Recorded Time 06/10/20 Chronic care management services completed Giovanna Oliver [facility] [employer] [facility] 06/10/2024 20:36:19 05/12/20 24 Chronic care management services completed Giovnana Oliver [facility] [employer] [facility] 05/12/2024 13:51:51 04/01/20 24 Chronic care management services completed Giovanna Oliver [facility] [employer] [facility] 04/01/2024 17:52:11 09/06/20 23 Medicare Wellness CPT Code, subsequent completed Andra Garcia RN [facility] [employer] [facility] 09/06/2023 13:01:25 03/10/20 20 Knee Replacement completed Not Available [facility] 10/2022 06:08:21 Thyroid Surgery completed Not Available [facility] 12/27/2022 06:08:21 Gallbladder Surgery completed Not Available [facility] 12/27/2022 06:08:21 Partial hysterectomy completed Not Available [facility] 12/27/2022 06:08:21 Imaging Results None recorded. Procedure Notes None recorded. Medical Equipment None [...] Not Available No t Available prednison e 10 mg tablet Take 3 [...] MOUTH TWICE A DAY FOR 7 DAYS 03/10 completed Not Available Not Available Not Available sulfameth oxazole 800 mg-trimet hoprim 160 [...] Not Available Not Available No t Available [place] 10 mg-325 mg tablet Take 1 tablet [...] office by the doctor 08/04 completed NDC: [id number] 001 Not Available Not Available Not Available [...] by the provider 03/25 completed ND: [id number] 04-14 Not Available Not Available Not Available dexlansop [...] Not Available Vitals Date Recorded Body height Body mass index (BMI) Body weight Body temperature Heart rate Oxygen saturation Oxygen saturation in Arterial blood by Pulse oximetry Systolic blood pressure Diastolic blood pressure Provider Name and Address Organization Details Last Updated DateTime 5 152.4 cm 26.3 kg/m2 67358.1 7 g 98.2 [degF] 73 /min 98 % 98 % 122 mm[Hg] 68 mm[Hg] Zahira Ramirez MA [place] [employer] [facility] [employer] 5 10:39:50 Date Recorded Body height Body mass index (BMI) Body weight Body temperature Heart rate Oxygen saturation Oxygen saturation in Arterial blood by Pulse oximetry Systolic blood pressure Diastolic blood pressure Provider Name and Address Organization Details Last Updated DateTime 5 152.4 cm 26.6 kg/m2 07186.5 6 g 97.9 [degF] 72 /min 99 % 99 % 134 mm[Hg] 70 mm[Hg] Zahira Ramirez MA [place] [employer] [facility] [employer] 5 11:03:43 Date Recorded Body height Body mass index (BMI) Body weight Body temperature Heart rate Oxygen saturation Oxygen saturation in Arterial blood by Pulse oximetry Systolic blood pressure Diastolic blood pressure Provider Name and Address Organization Details Last Updated DateTime 4 152.4 cm 24.8 kg/m2 05399.2 3 g 97.9 [degF] 82 /min 97 % 97 % 118 mm[Hg] 72 mm[Hg] Zahira Ramirez MA [facility] [employer] 4 11:58:39 Date Recorded Body height Provider Name an d Address Organization Details Last Updated DateTime 06/09/2024 152.4 cm Giovanna Oliver CCM [place] [employer] [facility] [employer] 06/10/2024 20:33:34 Date Recorded Body height Body mass index (BMI) Body weight Body temperature Heart rate Respiratory rate Oxygen saturation Oxygen saturation in Arterial blood by Pulse oximetry Systolic blood pressure Diastolic blood pressure Provider Name and Address Organization Details Last Updated DateTime 4 152.4 cm 26.6 kg/m2 48810.5 6 g 98.2 [degF] 80 /min 18 /min 98 % 98 % 136 mm[Hg] 72 mm[Hg] Guru Lafleur LPN [facility] [employer] [facility] 17:06:01 Social History Question Answer Notes LastModified by Organization Details LastModified Time Tobacco Smoking Status Never Smoker JHONNY Chatterjee, [facility] [employer] [facility] 09/06/2023 12:11:31 Do You Have An Advance Directive? Yes Living Will On File [id number] Information not available 12/27/2022 Are You Blind Or Do You Have Difficulty Seeing? No Information not available 09/06/2023 What Is Your Level Of Caffeine Consumption? Heavy [id number] Information not available 12/27/2022 How Much Tobacco Do You Chew? None [id number] Information not available 12/27/2022 In The 14 Days Before Symptom Onset, Have You Had Close Contact With A Laboratory-confi rmed COVID-19 While That Case Was Ill? No [email or web address] Information not available 09/06/2023 In The 14 Days Before Symptom Onset, Have You Had Close Contact With A Person Who Is Under Investigation For COVID-19 While That Person Was Ill? No [email or web address] Information not available 09/06/2023 Are You Deaf Or Do You Have Serious Difficulty Hearing? Yes Patient Wears Bilateral Hearing Aids. Information not available 09/06/2023 What Type Of Diet Are You Following? REGULAR [id number] Information not available 12/27/2022 Which Illicit Or Recreational Drugs Have You Used? None Information not available 09/06/2023 What Is The Highest Grade Or Level Of School You Have Completed Or The Highest Degree You Have Received? BC81247-5 [email or web address] Information not available 09/06/2023 Have There Been Any Changes To Your Family Or Social Situation? No [email or web address] Information not available 09/06/2023 What Is The Fluoride Status Of Your Home? Unknown [email or web address] Information not available 09/06/2023 Are There Any Guns Present In Your Home? Yes Information not available 09/06/2023 Do You Use Insect Repellent Routinely? No [email or web address] Information not available 09/06/2023 Where Do You Live? [facility] [email or web address] Information not available 09/06/2023 Guns Present In The Home? Yes [email or web address] Information not available 09/06/2023 Are You Able To Care For Yourself? Yes [email or web address] Information not available 09/06/2023 Are You Blind Or Do Yo Have Difficulty Seeing? No [email or web address] Information not available 09/06/2023 Are You Deaf Or Do You Have Serious Difficulty Hearing? Yes [email or web address] Information not available 09/06/2023 Live Alone Of With Others? With Others [email or web address] Information not available 09/06/2023 What Was The Date Of Your Most Recent Tobacco Screening? 03/10/2025 Information not available 03/10/2025 How Many Children Do You Have? 2 Information not available 05/29/2024 Do You Have Any Pets? Yes [email or web address] Information not available 09/06/2023 What Is Your Relationship Status? [id number] [id number] Information not available 12/27/2022 Do You Use Your Seat Belt Or Car Seat Routinely? Yes [email or web address] Information not available 09/06/2023 Do You Have Smoke And Carbon Monoxide Detectors In Your Home? Yes [email or web address] Information not available 09/06/2023 Are You Passively Exposed To Smoke? No Information not available 09/06/2023 Are There Any Smokers In Your House? No [email or web address] Information not available 09/06/2023 How Much Tobacco Do You Smoke? No [id number].[id number] [id number] Information not available 12/27/2022 Do You Use Sunscreen Routinely? Yes [email or web address] Information not available 09/06/2023 Has Tobacco Cessation Counseling Been Provided? No N/A [email or web address] Information not available 09/06/2023 Have You Recently Traveled Abroad? No Information not available 09/06/2023 Do You Have Difficulty Walking Or Climbing Stairs? No [email or web address] Information not available 09/06/2023 Do You Have Any Dietary Restrictions? No [email or web address] Information not available 09/06/2023 Sex: Unknown Functional Status Question Answer Note LastModified by Organizat ion Details LastModified Time Do you or have you ever used smokeless tobacco? Never used smokeless tobacco [id number] Information not available 12/27/2022 Are you currently employed? No Information not available 05/29/2024 Do you have transportation difficulties? No [email or web address] Information not available 09/06/2023 Are you able to care for yourself? Yes [email or web address] Information n ot available 09/06/2023 Do you have difficulty dressing or bathing? No [email or web address] Information not available 09/06/2023 Do you or have you ever used e-cigarettes or vape? Never used electronic cigarettes [email or web address] Information not available 09/06/2023 What is your exercise level? Heavy MIGRATION.[id number] Information not available 12/27/2022 Do you use any illicit or recreational drugs? No [email or web address] Information not available 09/06/2023 Do you or have you ever used any other forms of tobacco or nicotine? No [email or web address] Information not available 09/06/2023 What is your level of alcohol consumption? Occasional MIGRATION.480277 6418 Information not available 12/27/2022 Are you able to walk? [email or web address] Information not available 09/06/2023 Do you have difficulty doing errands alone? No [email or web address] Information not available 09/06/2023 What is your occupation? Retired [email or web address] Information not available 09/06/2023 Mental Status Question Answer Note LastModified by Organizat ion Details LastModified Time Do you feel stressed (tense, restless, nervous, or anxious, or unable to sleep at night)? [id number] [email or web address] Information not available 09/06/2023 Do you have difficulty concentrating, remembering or making decisions? No [email or web address] Information no t available 09/06/2023 Family History Relationship Description Onset Age of this Age Resolved Age Notes LastModified by Organization Details LastModified Time Father Family history of malignant neoplasm [email or web address] Not available 12/02 10:33:45 Father Diabetes mellitus [id number] Not available 12/27/2022 06:08:26 Mother Hypertensive disorder [id number] [id number] Not available 12/27/2022 06:08:26 Sister Diabetes mellitus [id number] [id number] Not available 12/27/2022 06:08:26 Medical History Condition Response ARTHRITIS Y DIVERTICULITIS Y EAR OR HEARING PROBLEMS Y HAVE YOU BEEN HOSPITALIZED OR SEEN IN [facility] IN THE PAST YEAR ? N Deficiency Y ECZEMA Y GERD/NAUSEA Y Gall Stones Y URINARY/BLADDER/KIDNEY PROBLEMS Y Gynecological History Statement/Question Response How many [...] Dover APRN [address], [place], [address], [facility] [employer] [facility] 03/04/2024 12:08:45 zoster recombinant 3 completed Rehana Dover APRN [address], [place], [address], [facility] [employer] [facility] 03/04/2024 12:08:45 COVID-19, mRNA, LNP-S, bivalent, PF, 50 mcg/0.5 mL or 25mcg/0.25 mL dose 2 luly Dover APRN [address], [address], [place], [address], [facility] [employer] [facility] 03/04/2024 12:08:45 COVID-19, mRNA, LNP-S, PF, bryson-sucrose, 30 mcg/0.3 mL 3 completed Rehana Dover APRN [address], [place], [address], [facility] [employer] [facility] 03/04/2024 12:08:45 Influenza, high-dose, quadrivalent, PF 3 completed GISELLE Stevenson [address], [place], [address], [facility] [employer] [facility] 09/10/2023 09:47:23 COVID-19, mRNA, LNP-S, PF, 100 mcg/0.5mL dose or 50 mcg/0.25mL dose 1 completed Rehana Dover APRN [address], [place], [address], [facility] [employer] [facility] 03/04/2024 12:08:45 COVID-19, mRNA, LNP-S, PF, 100 mcg/0.5mL dose or 50 mcg/0.25mL dose 1 completed Not Available [facility] 12/27/2022 06:20:26 COVID-19, mRNA, LNP-S, PF, 100 mcg/0.5mL dose or 50 mcg/0.25mL dose 1 completed Rehana Dover APRN [address], [place], [address], [facility] [employer] [facility] 03/04/2024 12:08:45 Influenza, split virus, quadrivalent, preservative 0 completed Not Available [facility] 12/27/2022 06:20:26 Influenza, high-dose, quadrivalent, PF 2 completed Not Available [facility] 12/27/2022 06:20:26 Influenza, high-dose, quadrivalent, PF 1 completed Not Available [facility] 12/27/2022 06:20:26 Influenza, high-dose, trivalent, PF 9 completed Not Available [facility] 12/27/2022 06:20:26 Influenza, high-dose, trivalent, PF 8 completed Not Available [facility] 12/27/2022 06:20:26 Influenza, high-dose, trivalent, PF 6 completed Not Available [facility] 12/27/2022 06:20:26 pneumococcal polysaccharide PPV23 6 completed Not Available [facility] 12/27/2022 06:20:26 Influenza, split virus, quadrivalent, preservative 5 completed Not Available [facility] 12/27/2022 06:20:27 Influenza, high-dose, trivalent, PF 7 completed Not Available [facility] 12/27/2022 06:20:27 Pneumococcal conjugate PCV 13 7 completed Not Available [facility] 12/27/2022 06:20:27 Influenza, split virus, trivalent, preservative 4 completed Rehana Dover APRN [address], [place], [address], [employer] 03/04/2024 12:08:45 Influenza, split virus, trivalent, preservative 3 completed Rehana Dover APRN [address], [place], [address], [employer] [facility] 03/04/2024 12:08:45 Influenza, high-dose, trivalent, PF 4 completed [place] [facility], [employer] [facility] 08/26/2024 15:12:44 Past Encounters Encounter ID Performer Location Encounter Start Date Encounter Closed Date Diagnosis/Indication Diagnosis SNOMED-CT Code Diagnosis ICD10 Code Diagnosis Note [id number] Fortunato [facility] [place] [address] [facility] [address] [place] [address] 01/24/2021 00:00:00 01/24/2021 17:05:50 [id number] [facility] [place] [address] [place] [address] 02/23/2021 00:00:00 03/06/2021 17:21:53 [id number] Fortunato Turner MD [facility] [place] [address] [place] [address] 03/25/2021 00:00:00 03/25/2021 10:32:16 [id number] Juliocesar rhoades MD [facility] [place] [address] [place] [address] 05/09/2021 00:00:00 05/09/2021 13:20:18 [id number] Good Flores MD [facility] [place] [address] [facility] [place] [address] 06/13/2021 00:00:00 06/13/2021 16:11:57 [id number] Juliocesar rhoades MD [facility] Internal Med [facility] [address] [facility] 15 [place] [address] 07/15/2021 00:00:00 07/15/2021 17:04:18 [id number] MD MONA SonS_[facility] Internal Med [facility] [address] [facility] 15 [place] [address] 08/15/2021 00:00:00 08/15/2021 14:44:20 [id number] Juliocesar rhoades MD [facility] Internal Med [facility] [address] [facility] 15 [place] [address] 09/16/2021 00:00:00 09/16/2021 15:44:48 [id number] MD MONA SonS_[facility] Internal Med [facility] [address] [facility] 15 [place] [address] 03/28/2022 00:00:00 03/28/2022 14:24:09 [id number] Fortunato Turner MD [facility] [place] [address] [place] [address] 04/26/2022 00:00:00 04/26/2022 10:41:14 [id number] [facility] [place] [address] [place] [address] 06/29/2022 00:00:00 06/29/2022 12:44:32 [id number] [facility] [place] [address] [facility] [address] [place] [address] 08/21/2022 00:00:00 08/21/2022 14:57:57 [id number] Jul[address]es [address] [facility] Internal Med [facility] [address] [place] [address] [address] [place] [address] 08/29/2022 00:00:00 08/29/2022 13:36:18 [id number] [address] [facility] Internal Med [facility] [address] [facility] y , [place] [address] 08/30/2022 00:00:00 08/30/2022 13:04:16 [id number] [facility] Internal Med [facility] [address] [facility] 15 [place] [address] 11/06/2022 00:00:00 11/06/2022 16:23:01 [id number] [address] [facility] Internal Med [facility] [address] [facility] 15 [place] [address] 02/27/2023 12:19:25 02/27/2023 12:51:17 Onychomycosis 813989163 B35.1 now resolved- advised to avoid the gel nails/acry lic nails Hyperlipidemia 01545192 E78.5 mild, working on diet/exerc ise Vitamin D deficiency 347 53050 E55.9 on OTC supplement Cobalamin deficiency 190 407297 E53.8 on monthly injections Thrombocyt openic disorder 696512449 D69.6 mild, continue to monitor- has cbc order for today Urinary incontinence 165 654526 R32 Follows urology- Chaparro Bullockon botox injections Conde's esophagus 3029 41283 K22.70 follows GI- Dr. Mai Blount EGD 12/2020 w/o evidence of Barretts Gastroesop hageal reflux disease without esophagitis 108109891 K21.9 on omeprazole add famotidine prn at hslifestyl e measures discussed to reduce refluxcall office if no improvemen t and we can get her an appt with GI- Dr. Nicole Duran Pain of le ft hip joint 8776903774 27811 M25.552 Get appointmen t with Ortho per her requestShe declines x-rays today-want s to wait until she sees Ortho [id number] Fortunato Turner MD S_[facility] Ortho [place] [address] [place] [address] 04/11/2023 09:14:15 04/12/2023 14:34:43 Pain of left hip joint 9627667987 14648 M25.552 [id number] Fortunato Turner MD [facility] Ortho [place] [address] [place] [address] 05/17/2023 14:07:35 05/17/2023 15:07:24 Pain of left hip joint 3615555621 15702 M25.801 [id number] Juliocesar rhoades MD [facility] Internal Med [place] [address] [facility] [place] [address] 09/06/2023 12:10:10 09/06/2023 13:09:50 Hyperlipidemia 24866647 E78.5 mild, working on diet/exerc ise Vitamin D deficiency 347 93643 E55.9 on OTC supplement Cobalamin deficiency 190 529584 E53.8 on monthly injections Thrombocyt openic disorder 366022173 D69.6 mild, continue to monitor Urinary incontinence 165 974357 R32 Follows urology- Chaparro Bullockon botox injections Conde's esophagus 3029 72784 K22.70 follows GI- Dr. Mai Blount EGD 12/2020 w/o evidence of Barretts Gastroesop hageal reflux disease without esophagitis 006016469 K21.9 on omeprazole in AM, famotidine prn at hslifestyl e measures discussed to reduce refluxneed s to get an appt with GI- Dr. Nicole Guthrie precaution s Pain of le ft hip joint 3536676292 49117 M25.552 following ortho- Dr. Bedoya roved after PT Adult heal th examination 504513137 Z00.00 Screening for disorder 944079877 Z13.9 Administra tion of influenza vaccine 82498751 Z23 [id number] Juliocesar rhoades MD [facility] Internal [facility] [address] [place] [address] 03/04/2024 11:52:39 03/04/2024 12:23:23 Hyperlipidemia 40179082 E78.5 Gastroesop hageal reflux disease without esophagitis 379829244 K21.9 Cobalamin deficiency 190 818567 E53.8 Vitamin D deficiency 347 00331 E55.9 [id number] [address] [facility] Internal [facility] [address] [place] [address] 04/01/2024 17:49:18 04/01/2024 18:00:18 Hyperlipidemia 79955817 E78.5 Gastroesop hageal reflux disease without esophagitis 376133139 K21.9 Vitamin D deficiency 347 15788 E55.9 Cobalamin deficiency 190 174490 E53.8 [id number] [facility] Internal [facility] [address] [facility] [place] [address] 05/12/2024 13:48:15 07/16/2024 18:31:22 Osteoarthritis 014765476 M19.90 Hyperlipidemia 82865930 E78.5 Diverticulitis 784556394 K57.92 Gastroesop hageal reflux disease without esophagitis 303394044 K21.9 [id number] [address] [facility] Internal [place] [address] [address] [facility], [place] [address] 1 05/29/2024 11:49:30 05/29/2024 12:46:32 Screening - NAD 985163720 Z13.9 C-scope: Dr Davis Mammogram: Get thisDEXA: Get thisPAP: See her OB Dr Hoyos Get yearly flu shotGet Tdap if not doneGet shingrix vaccineCan do COVID 19 vaccine and its vaccineCan do PCV RTC in 3 months, do labs, ER if worse, she is very appreciati ve to this plan of care Hyperlipidemia 29030074 E78.5 Get labs Urinary incontinence 165 690970 R32 OABErin Doser [employer] urology 03/17/2024 , f/u in w weeks for UA/PVRNow sees Dr Parnell, referred 05/29/2024 , states that she has gotten botox Conde's esophagus 3029 44573 K22.70 EGD 01/17/2021 EGD 04/17/[address] Davis 04/07/2024 Stop omeprazole , changed to dexilant 60mg daily but could not afford this, will start on Voquenza and also refer to Dr Yancey, may need to get fundoplica tion done Pain of le ft hip joint 4408073378 18800 M25.552 Seen by Jose Ruiz 05/17/2023 Screening mammography 24 005571 Z12.31 Screening for osteoporosis 461094945 Z13.820 Serum betsy min B12 below reference range 418073245 R79.89 [id number] Juliocesar rhoades MD [facility] Internal Med [facility] 15 [address] [facility], [address] [address] 06/10/2024 20:31:59 07/17/2024 19:22:29 Gastroesophageal reflux disease without esophagitis 832563218 K21.9 Diverticulitis 476015504 K57.92 Conde's esophagus 3029 91304 K22.70 Hyperlipidemia 27541894 E78.5 [id number] Juliocesar rhoades MD S_[facility] Internal Med [place] [address] [place] [address] , [place] [address] 08/11/2024 16:56:13 08/11/2024 17:43:02 Screening - NAD 643634284 Z13.9 C-scope: Dr Davis Mammogram: Get this DEXA: 06/04/2024 : Osteopenia , do more ca and vit d PAP: See her OB Dr Hoyos Get yearly flu shotGet Tdap if not doneGet shingrix vaccineCan do COVID 19 vaccine and its vaccineCan do PCV RTC in 3 months, do labs, ER if worse, she is very appreciati ve to this plan of care Hyperlipidemia 05306663 E78.5 On atorvastat in 40mg dailyGet labs Urinary incontinence 165 783160 R32 OABErin Doser [employer] urology 03/17/2024 , f/u in w weeks for UA/PVRNow sees Dr Parnell, referred 05/29/2024 , states that she has gotten botox Conde's esophagus 3029 72473 K22.70 EGD 01/17/2021 EGD 04/17/[address] Davis 04/07/2024 Stop omeprazole , changed to dexilant 60mg daily but could not afford this, will start on Voquenza and also refer to Dr Yancey, may need to get fundoplica tion done OV 08/11/2024 :On nexium 40mg daily PRNSee GI Pain of le ft hip joint 8128978231 36931 M25.552 Seen by Jose Ruiz 05/17/2023 Screening mammography 24 474505 Z12.31 Screening for osteoporosis 473566997 Z13.820 Serum betsy min B12 below reference range 364935178 R79.89 Acute urin js tract infection 018706094 N39.0 UA: +1 leuk, +1 nitrite, blood traceOn cipro, will finish the courseGet UA Cx and Sx [id number] Juliocesar rhoades MD S_[facility] Internal Med [facility] [address] [facility], [facility] 15 [place] [address] 12/02/2024 10:32:59 12/02/2024 11:46:17 Screening - NAD 395148681 Z13.9 C-scope: Dr Davis Mammogram: Get this DEXA: 06/04/2024 : Osteopenia , do more ca and vit d PAP: See her OB Dr Hoyos Get yearly flu shotGet Tdap if not doneGet shingrix vaccineCan do COVID 19 vaccine and its vaccineCan do PCV RTC in 3 months, do labs, ER if worse, she is very appreciati ve to this plan of care Hyperlipidemia 13447799 E78.5 On atorvastat in 40mg dailyGet labs Urinary incontinence 165 817640 R32 OABErin Doser [employer] urology 03/17/2024 , f/u in w weeks for UA/PVRNow sees Dr Parnell, referred 05/29/2024 , states that she has gotten botox Conde's esophagus 3029 52603 K22.70 EGD 01/17/2021 EGD 04/17/[address] Davis 04/07/2024 Stop omeprazole , changed to dexilant 60mg daily but could not afford this, will start on Voquenza and also refer to Dr Yancey, may need to get fundoplica tion done Now on nexium 40mg daily PRNSee GI Pain of le ft hip joint 2549129826 21621 M25.552 Seen by Jose Ruiz 05/17/2023 Screening mammography 24 478645 Z12.31 Screening for osteoporosis 438286987 Z13.820 Serum betsy min B12 below reference range 951434857 R79.89 Screening for cardiovascular system disease 253047680 Z13.6 Thrombocyt openic disorder 384443143 D69.6 Referred to hematology [id number] Juliocesar rhoades MD [facility] Internal Med [facility] [address] [facility], [address] [place] [address] 03/10/2025 10:49:02 03/10/2025 11:49:11 Screening - NAD 141766510 Z13.9 C-scope: Dr Davis Mammogram: 02/09/2025 : Neg DEXA: 06/04/2024 : Osteopenia , do more ca and vit d PAP: See her OB Dr Hoyos Get yearly flu shotGet Tdap if not doneGet shingrix vaccineCan do COVID 19 vaccine and its vaccineCan do PCV RTC in 3 months, do labs, ER if worse, she is very appreciati ve to this plan of care Hyperlipidemia 10211182 E78.5 On atorvastat in 40mg dailyGet labs Urinary incontinence 165 172892 R32 OABErin Doser [employer] urology 03/17/2024 , f/u in w weeks for UA/PVRNow sees Dr Parnell, referred 05/29/2024 , states that she has gotten botox Conde's esophagus 3029 78197 K22.70 EGD 01/17/2021 EGD 04/17/[address] Davis 04/07/2024 Stop omeprazole , changed to dexilant 60mg daily but could not afford this, will start on Voquenza and also refer to Dr Yancey, may need to get fundoplica tion done Now on nexium 40mg daily PRNOn sucralfate See GIStates that she is going to now see Dr Oliver GI to discuss surgery Pain of le ft hip joint 9474323585 54784 M25.552 Seen by Jose Ruiz 05/17/2023 Screening for osteoporosis 705849140 Z13.820 Serum betsy min B12 below reference range 563425989 R79.89 Screening for cardiovascular system disease 274065983 Z13.[address] Dc [facility] last 03/02/2025 , next one year Thrombocyt openic disorder 806468819 D69.[address] Hamilton to get US liver Liver enzy mes level above reference range 556651735 R74.8 Get labsUS liver ordered by hematology Goals Section Goal Description Progress Status Start Date LastModified by Organization Details LastModified Time Follow-u p Appointm ent(s) Attends referral and/or follow-up appointment(s) as per care team recommendation (s) Progressing active 2023 Giovanna Oliver CCM Information not available 05/13/2024 12:49:22 Weight Mainandreina nce Exhibits stable weight with normal fluctuation NoChange active 2023 Giovanna Oliver CCM Information not available 04/01/2024 22:14:18 Quality of Life Reports satisfaction with quality of life Progressing active 2023 Giovanna Oliver CCM Information not available 05/13/2024 12:49:24 Activiti es of Daily Living Performs activities of daily living independently or with minimal assistance Progressing active 2023 Giovanna Oliver CCM Information not available 05/13/2024 12:49:27 Decrease d Alcohol Consumpt ion Reports decreased alcohol consumption as per care team recommendation (s) achieved active 2023 Giovanna Oliver CCM Information not available 06/11/2024 00:50:27 Diagnost ic Testing Completes diagnostic testing as per care team recommendation (s) Progressing active 2023 Giovanna Oliver CCM Information not available 05/13/2024 12:49:29 Adequate Housing Conditio ns Maintains adequate housing with satisfactory living conditions improving active 2023 Giovanna Oliver CCM Information not available 06/11/2024 00:56:06 Weight Loss Decreases body weight as per care team recommendation (s) NoChange active 2023 Giovanna Oliver CCM Information not available 04/01/2024 22:14:18 Reliable Transpor tation Reports having access to reliable transportation Progressing active 2023 Giovanna Oliver CCM Information not available 05/13/2024 12:49:35 Symptom Manageme nt Demonstrates ability to manage and/or control symptoms Progressing active 2023 Giovanna Oliver CCM Information not available 05/13/2024 12:49:37 Financia l Stabilit y Reports financial status and/or income meets needs NoChange active 2023 Giovanna Oliver CCM Information not available 04/01/2024 22:14:18 Diet Adherenc e Follows prescribed or recommended diet NoChange active 2023 Giovanna Oliver CCM Information not available 04/01/2024 22:14:18 Medicati on Regimen Follows medication regimen as per care team recommendation (s) Progressing active 2023 Giovanna Oliver CCM Information not available 05/13/2024 12:49:42 Knowledg e of Disease or Conditio n Demonstrates understanding of disease(s) or condition(s) Progressing active 2023 Giovanna Oliver CCM Information not available 05/13/2024 12:49:48 Lab Testing Completes lab testing as per care team recommendation (s) Progressing active 2023 Giovanna Oliver CCM Information not available 05/13/2024 12:49:50 Food Security Reports ability to access and obtain foods to meet nutritional needs NoChange active 2023 Giovanna Oliver CCM Information not available 04/01/2024 22:14:19 Health Concerns Section Related Observation LastModified by Organization Detai ls LastModified Time None Recorded Concern Status LastModified by Organization Details LastModified Time Hyperlipidemia Active Giovanna Oliver CCM Not Available 0 04/01/2024 22:06:49 Cobalamin deficiency Active Giovanna Oliver CCM Not Avail able 04/01/2024 22:07:27 Gastroesophageal reflux disease without esophagitis Active Giovanna Oliver CCM Not Available 04/01/2024 22:0 6:36 Vitamin D deficiency Active Giovanna Oliver CCM Not Avail able 04/01/2024 22:07:16 Osteoarthritis Active Giovanna Oliver CCM Not Available 0 05/13/2024 12:49:17 Advance Directives Directive Y: Living Will on file Payers Encounter Date Sequence Insurance Name Policy Number Policy Soliman Covered Member ID Soliman Member ID Guarantor Name 05/29/2024 1 [facility] (MEDICARE REPLACEMENT/A DVANTAGE - HMO) [id number] Rosario K Wiehardt [id number] Rosario K Wiehardt 06/09/2024 1 [facility] (MEDICARE REPLACEMENT/A DVANTAGE - HMO) [id number] Rosario K Wiehardt [id number] Rosario K Wiehardt 08/11/2024 1 [facility] (MEDICARE REPLACEMENT/A DVANTAGE - HMO) [id number] Rosario K Wiehardt [id number] Rosario K Wiehardt 12/02/2024 1 [facility] (MEDICARE REPLACEMENT/A DVANTAGE - HMO) [id number] Rosario K Wiehardt [id number] Rosario K Wiehardt 03/10/2025 1 [facility] (MEDICARE REPLACEMENT/A DVANTAGE - HMO) [id number] Rosario K Wiehardt [id number] Rosario K Wiehardt Notes Date Note Type Note Provider Name and Address Organization Details Recorded Time 05/29/2024 text/html OV 05/29/2024:Here to establish care Present Hx :GERD Here to discuss GERD issues, she feels well, has had another EGD, and was told that she was to take omeprazole, she feels that the omeprazole has not helped, still has reflux symptoms with burning as well as boot repairer cough d/t the GERD, she would like to discuss use of another PPI or med Juliocesar Leal MD [address] [place] [address], [place] [address], [place], [address], [facility] [employer] 05/29/2024 14:15:57 08/11/2024 text/html OV 05/29/2024:Here to establish care Present Hx :GERD Here to discuss GERD issues, she feels well, has had another EGD, and was told that she was to take omeprazole, she feels that the omeprazole has not helped, still has reflux symptoms with burning as well as boot repairer cough d/t the GERD, she would like to discuss use of another PPI or med OV 08/11/2024: Here for her f/u apt, she is still c/o UTI sx is on the cipro, no gross hematuria, no new labs noted Juliocesar Leal MD [address], [place], [address], [facility] [employer] [facility] 08/11/2024 17:42:58 12/02/2024 text/html OV 05/29/2024:Here to establish care Present Hx :GERD Here to discuss GERD issues, she feels well, has had another EGD, and was told that she was to take omeprazole, she feels that the omeprazole has not helped, still has reflux symptoms with burning as well as boot repairer cough d/t the GERD, she would like to discuss use of another PPI or med OV 08/11/2024: Here for her f/u apt, she is still c/o UTI sx is on the cipro, no gross hematuria, no new labs noted OV 12/02/2024: Here for her f/u apt, she is doing well, has noted now some dysphagia, has seen Dr Bc Leal MD [address], [facility] [address], [place], [address], [facility] [employer] [facility] 12/02/2024 18:04:13 03/10/2025 text/html OV 05/29/2024:Here to establish care Present Hx :GERD Here to discuss GERD issues, she feels well, has had another EGD, and was told that she was to take omeprazole, she feels that the omeprazole has not helped, still has reflux symptoms with burning as well as boot repairer cough d/t the GERD, she would like to discuss use of another PPI or med OV 08/11/2024: Here for her f/u apt, she is still c/o UTI sx is on the cipro, no gross hematuria, no new labs noted OV 12/02/2024: Here for her f/u apt, she is doing well, has noted now some dysphagia, has seen Dr Bc OLIVERA 03/10/2025:Here for her f/u apt, she still has the heartburn, she did see GI and also Dr Dao Haynes did do the labs Juliocesar Leal MD [address], [facility] [address], [place], [address], [place] [facility] 03/10/2025 14:38:05 OBGyn Episode No OBEpisode recorded.
--- OUTSIDE RECORDS SUMMARY | 2025-04-06 08:44 | XMS_ITS | Clinical Summary ---
Author Organization [facility] Chetan Dunn Address [address] [facility] [address] Care Team Providers Care Thermal Engineer Name Role Phone Juliocesar Leal MD Primary [...] 1 Tablet by mouth daily. 12/11/2024 Active Active Problems No known active problems Encounters Date Type Department Care Team Description 03/24/2025 External Device Data ST[facility] ABSTRACTION Provider, Abstract 03/19/2025 External Device Data [facility] ABSTRACTION Provider, Abstract 03/18/2025 External Device Data [facility] ABSTRACTION Provider, Abstract 03/17/2025 External Device Data [facility] ABSTRACTION Provider, Abstract 03/12/2025 Abstract [facility] [address] [place] [address] Lxe Ferguson MD 02/24/2025 External Device Data [facility] ABSTRACTION Provider, Abstract 02/24/2025 External Device Data [facility] ABSTRACTION Provider, Abstract 02/24/2025 External Device Data ST[facility] ABSTRACTION Provider, Abstract 02/18/2025 Orders Only [facility] [place] [address] [place] [address] Lex Ferguson MD 02/17/2025 11:30 AM CDT Office Visit [facility] [address] [place] [id number] Jacqui Pink MD Macrocytosis (Primary Dx); Other secondary thrombocytopenia; Splenomegaly, not elsewhere classified 02/17/2025 Orders Only [facility] [address] [place] [address] Lex Ferguson MD from Last 3 Months Family History Medical [...] on file 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 Gender Identity Not on file Sexual Orientation [...] Description 04/21/2025 11:15 AM CDT Office Visit [facility] [place] [address] [place] [address] Lex Ferguson MD [address] [place] [address] Health Maintenance Due Date Last Done Comments DTAP/TDAP/TD VACCINES (1 - Tdap) 1970 BREAST CANCER SCREENING 1991 COLORECTAL SCREENING 1996 Colorectal Cancer Screening 1996 FIT-DNA Q 3 years 1996 FIT/FOBT Q 1 year 1996 Flex Sig/CT Colonography Q 5 years 1996 OSTEOPOROSIS SCREENING 2016 COVID-19 Vaccine (2023-2 5 season) 2024 08/04/2023, 07/10/2022, 08/28/2021, Additional history exists RSV VACCINE (60+ or ) (1 - 1-dose 75+ series) 2026 PNEUMOCOCCAL VACCINE 50+ YEARS Completed 09/10/2017 , 08/25/2016 ZOSTER VACCINE Completed 01/24/2023, 11/26/2022 INFLUENZA VACCINE Completed 08/26/2024, , 08/29/2022, Additional history exists Procedures Procedure Name Priority Date/Time Associated Diagnosis Comments CBC MIXED CELL DIFFERENTIAL Routine 02/17/2025 3:34 PM CDT COMPREHENSIVE METABOLIC PANEL Routine 02/17/2025 9:08 AM CDT from Last 3 Months Results * CBC MIXED CELL DIFFERENTIAL (02/17/2025 3:34 PM CDT) Blood Lex Ferguson MD HEMATOLOGY ORDERABLES Final Res ult * COMPREHENSIVE METABOLIC PANEL (02/17/2025 9:08 AM CDT) Blood Lex Ferguson MD CHEMISTRY ORDERABLES Final Resu lt from Last 3 Months Insurance [facility] [id number] Care Teams Thermal Engineer Relationship Specialty Start Date End Date Juliocesar Leal MD [address] [place] [address] PCP - General Internal Medicine 12/15/24
--- OUTSIDE RECORDS SUMMARY | 2025-04-06 08:44 | XMS_ITS | CONTINUITY OF CARE DOCUMENT ---
Author Name paolo boone Address Unknown Organization [facility] Address [address] [place] [address] Phone [phone] Care Team Providers Care Fruit Harvester Machine Operator Name Role Phone Dao ENGLE, Rosangela Unavailable ROSIE TOLENTINO MD Unavailable [phone] ROSIE TOLENTINO MD Unavailable [phone] PROBLEMS Condition Status Date Provider Notes Cardiology examination active Gnee norwood MD Family History of Hypertension: active Kirsty Tineo MD GERD active Gene Tineo MD Preoperative cardiovascular examination completed - Roscoe Kam Arthritis, L knee active Fei Kyte Diastolic dysfunction--CCS zero, echo ef nl, mild [place], 01/2025 active Roscoe Kam Hyperlipidemia active Rosangela Dc MD ENCOUNTERS Date Type Provider Location Encounter Diag nosis - In-person encounter Office Visit Rosangela Dc MD [place] [facility] Diastolic dysfunction--CCS zero, echo ef nl, mild [place], 01/2025 - In-person encounter Office Visit Rosangela Dc MD [place] [facility] Preoperative cardiovascular examinationDiastolic dysfunction--CCS zero, echo ef nl, mild [place], 01/2025Hyperlipidemia - In-person encounter Office Visit Gene Tineo MD [place] [facility] Cardiology examinationFamily History of Hypertension:GERDArthritis, L knee - In-person encounter Office Visit Gene Tineo MD [facility] VITAL SIGNS Date Observation Value Provider Body Mass Index (Ratio) 25.88 kg/m2 Anil Dc MD pulse rate 68 /min Mey Sebastianer s oxygen saturation, oximetry 98 % Mey Alonzo blood pressure, diastolic 82 mm[Hg] Ti jjny Alonzo blood pressure, systolic 128 mm[Hg] Tif arnold Alonzo weight E&M 137 [lb_av] Mey Saunder s blood pressure, cuff size regular Ti crystal Alonzo height E&M 61 [in_i] Mey Sebastianer s Body Mass Index (Ratio) 25.51 kg/m2 Anil Dc MD blood pressure, diastolic 81 mm[Hg] Li nkLogic blood pressure, systolic 120 mm[Hg] Elaine kLogic blood pressure, diastolic 81 mm[Hg] Br ielle Dietrich blood pressure, systolic 120 mm[Hg] Donya irene Dietrich pulse rate 74 /min [place] Luke s oxygen saturation, oximetry 98 % [place] Dietrich blood pressure, cuff size regular Br ielle Dietrich weight E&M 135 [lb_av] [place] [facility] s height E&M 61 [in_i] [facility] s Body Mass Index (Ratio) 26.07 kg/m2 Aguila n Kyte blood pressure, resting No Brit avelino Block pulse rate 92 /min Anastasia Block oxygen saturation, oximetry 98 % Anastasia Block blood pressure, diastolic 72 mm[Hg] Br ittany Block blood pressure, systolic 122 mm[Hg] Donya rodriguez [facility] height E&M 61 [in_i] [facility] weight E&M 138 [lb_av] [facility] respiratory rate E&M 16 /min Venancio Block temperature E&M 96.0 [degF] Pilar Tanks [...] Dietrich SOCIAL HISTORY Date Observation Value Provider number of grandchildren Rosangela malcolm fidelina alcohol use, average drinks per day <1 [facility] yes [facility] smoking status [facility]oker [facility], average drinks per day <1 [facility] use yes [facility] smoking status Never smoker [facility] number of grandchildren Gene Tineo MD social history E&M S moking History: Jordana markham has never smoked. Gene Tineo MD social history reviewed E&M revi ewed - no changes required Gene Tineo MD alcohol use, average drinks per day <1 [facility] alcohol use yes [facility] smoking status Never smoker [facility] k FAMILY HISTORY Family Member Condition Father Family History of Di abetes: Mother Family History of Hy pertension: INSURANCE PROVIDERS Payer name Policy type / Coverage type [place] red democrat ID [employer] MEDICARE ADVANTAGE [address] (HMO POS) Medicare [id number] ADVANCE DIRECTIVES Name Date LIVING WILL ON FILE TREATMENT PLAN Date Name Performer Cardiology Rosangela Dc MD Cardiology:This visi t has been a part of the consistent, comprehensive, and ongoing management of the chronic medical condition(s) listed above for the patient. Rosangela Dc MD Cardiology Rosangela Dc MD Cardiology: O rders: C omplete Echo (26695) C T, Coronary Calcium Score (CPT-28669) Rosangela Dc MD Cardiology: O rders: E KG (CPT-10691) C omplete Echo (39202) C T, Coronary Calcium Score (CPT-82768) Rosangela Dc MD Cardiology:Planned for total kne [...] Procedure Name Provider Procedure Notes S tatus Complex e/m visit add on Rosangela Dc MD completed CT- Coronary CA score Rosangela Dc MD completed EKG Rosangela Dc MD completed EKG Gene Tineo MD complet ed
--- OUTSIDE RECORDS SUMMARY | 2025-04-06 08:44 | XMS_ITS | Clinical Summary ---
Author Organization [facility] Address [address] [place] [place] [address] Care Team Providers Care Midwife Practitioner Name Role Phone Kaleb Engel MD Primary Care Provider [phone] Source Comments [facility],non-owned Affiliates and Associated Physician Practices is amultiple site organization consisting of ambulatory clinics and hospital sitesin [place], [place], [place] and [place]. This disclosure is being madepursuant to the Care Everywhere program and may not contain all information available regarding this patient. Last updated 18.[facility] Allergies No known active allergies Medications * [...] on file Legal Sex Female 8:51 AM APPLICATION HELPER Gender Identity Not on file Sexual Orientation Not on file Last Filed Vital Signs Vital Sign Reading Time Taken Comments Blood Pressure 114/80 11/10/2016 9:08 AM APPLICATION HELPER Pulse 80 11/10/2016 9:08 AM APPLICATION HELPER Temperature 36.9 C (98.4 F) 11/10/2016 9:08 AM APPLICATION HELPER Respiratory Rate 16 11/10/2016 9:08 AM APPLICATION HELPER Oxygen Saturation - - Inhaled Oxygen Concentration - - Weight 61.2 kg (135 lb) 11/10/2016 9:08 AM APPLICATION HELPER Height 154.9 cm (5' 1) 11/10/2016 9:08 AM APPLICATION HELPER Body Mass Index 25.51 11/10/2016 9:08 AM APPLICATION HELPER Plan of Treatment Health Maintenance Due Date [...] to complete this topic Insurance MEDICARE MEDICARE [facility] MANAGED MEDICARE [facility] Care Teams Midwife Practitioner Relationship Specialty Start Date End Date Kaleb Engel MD PCP - General 01/18/21
--- OUTSIDE RECORDS SUMMARY | 2025-04-06 08:45 | XMS_ITS | Continuity of Care Document ---
Author Organization [facility] [place] [address] [place] [address] Phone Care Team Providers Care Candy Separator Hard Name Role Phone Encinas OD, Jhonny Unavailable Unavailable Procedures Procedure Date Contact Lens Hydrophilic, Spherical Sales Tax Contact Lens Hydrophilic, Spherical Medical Tax Eye Exam & Treatment Refraction Eye Exam Established Pt Contact Lens Hydrophilic, Spherical [employer] Medical Eye Exam Established Pt Eye Exam & Treatment Refraction CL Replacement - [employer] Other 009 Tax - Medical CL Replacement - [employer] Disp W/BW Soft [employer] Medical CL Replacement - [employer] Disp W/BW Soft [employer] international CL Replacement - [employer] Disp W/BW Soft [employer] Medical Eye Exam & Treatment Refraction CL Replacement - [employer] Disp W/BW Soft [employer] Medical CL Replacement - [employer] Disp W/BW Soft [employer] Medical CL Replacement - [employer] Disp W/BW Soft Sales Tax Eye Exam & Treatment CL Replacement - [employer] Disp W/BW Soft Tax - Medical Advance Directives Directive Yes / No Effective Date File Name No Information Encounters Encounter Description Practice Location Reason(s) For Visit Diagnoses Date Provider Providers Copied on Encounter [facility], [address] [place] [address] [address], [place], [place], [id number], tel:[phone] [facility] [place] No Information Nov-1 8-201 0 Encinas OD Jhonny. [address] , [address], [place], [place], [facility], [place]. tel:[phone] [facility], [address] [place] [address] [address], [place], [place], [id number], tel:[phone] [facility] No Information Aug-0 3-201 0 Encinas OD Jhonny. [address], [place], [place], [facility], . tel:[phone] [facility], [address] [place] [address] [address], [place], [place], [id number], tel:[phone] [facility] [place] No Information Earle-0 6-201 0 Encinas OD Jhonny. [address], [address], [place], [facility], [place]. tel:[phone] [facility], [address] [place] [address] [address], [place], [place], [id number], tel:[phone] [facility] [place] No Information Mar-0 3-201 0 Encinas OD Jhonny. [address], [place], [facility], [place]. tel:[phone] [facility], [address] [place] [address] [address], [place], [place], [id number], tel:[phone] [facility] [place] No Information Feb-0 1-201 0 Encinas OD Jhonny. [address], [address], [place], [facility], [place]. tel:[phone] [facility], [address], [place], [place], [address], [place] tel:[phone] [facility] No Information Apr-2 9-200 9 Encinas OD Jhonny. [address] , [address], [place], [facility], [place]. tel:[phone] [facility], [address] [place] [address] [address], [place], [place], [address], [place] tel:[phone] [facility] No Information Kyrie-0 3-200 9 Encinas OD Jhonny. [address] , [address], [place], [facility], [place]. tel:[phone] [facility], [address] [place] [address] [address], [place], [place], [id number], [place] tel:[phone] [facility] No Information Oct-2 7-200 9 Encinas OD Jhonny. [address] , [address], [place], [facility], [place]. tel:[phone] [facility], [address] [place] [address] [address], [place], [place], [id number], [place] tel:[phone] [facility] No Information Aug-2 6-200 8 Encinas OD Jhonny. [address] , [address], [place], [facility], [place]. tel:[phone] [facility], [address] [place] [address] [address], [place], [place], [id number], [place] tel:[phone] [facility] No Information Apr-2 5-200 8 Encinas OD Jhonny. [address] , [address], [place], [address], [place]. tel:[phone] [facility], [address] [place] [address] [address], [place], [place], [id number], tel:[phone] [facility] No Information Apr-2 3-200 8 Encinas OD Jhonny. [address] [place], [place] [address]ate [address] , [address], [place], [address], . tel:[phone] [facility], [address] [place] [address] [address], [place], [place], [id number], tel:[phone] [facility] No Information Malick-2 9-200 8 Encinas OD Jhonny. [facility] [address] [address] , [address], [place], [address], . tel:[phone] [facility], [address] [place] [address] [address], [place], [place], [id number], tel:[phone] [facility] [place] No Information Sep-2 7-200 7 Encinas OD Jhonny. [address] [place], [place] [address]ate [address], [address], [place], [facility], [place]. tel:[phone] [facility], [address] [place] [address] [address], [place], [place], [id number], tel:[phone] [facility] [place] No Information Mar-0 9-200 7 Encinas OD Jhonny. [address] [place], [place] [address]ate [address], [address], [place], [address], . tel:[phone] Family History Family Member Type Diagnosis Age At Onset No Information Payers Payer name Insurance type Covered republican ID Authoriza tion(s) No Information Social History [...]
== END 2025-04-06 08:26 | disposition home or self-care (01) ==
PROVIDERS: PCP Internal Medicine; Visit Provider Internal Medicine
DX: D75.89 Other specified diseases of blood and blood-forming organs (principal); D69.59 Other secondary thrombocytopenia; R16.1 Splenomegaly, not elsewhere classified; Z90.49 Acquired absence of other specified parts of digestive tract
CPT/HCPCS: 76700

== ENCOUNTER 2025-04-15 09:35 | Outpatient (CLI) | payer MEDICARE, SELFPAY ==
--- NOTE | ~2025-04-15 | XR_ITS ---
EXAMINATION: XR barium swallow DATE: 04/15/2025 10:23 INDICATION: Hiatal hernia TECHNIQUE: The patient drank thick barium, gas-producing crystals, and thin barium. Fluoroscopic spot radiographs of the hypopharynx and esophagus were obtained. Fluoroscopy exposure time was 1.7 minut es. COMPARISON: None. FINDINGS: The pharynx is symmetric and without evidence of mass lesion or mucosal irregularity. The e sophagus is normal without mass or stricture. Esophageal motility is normal. There is a sliding-type hiatal hernia with gastroesophageal junction 4 cm above level of the diaphragm at baseline but which increases to 8 cm with Valsalva which also results in recurrent reflux initially into the intrathorac ic portion the stomach and the subsequent reflux of a significant amount of contrast into the more pr oximal esophagus near the level of the thoracic inlet. IMPRESSION: 1. Small to moderate-sized sliding-type hiatal hernia with recurrent gastroesophageal reflux with pro vocative maneuvers. Reviewed, dictated and finalized at location A. IMPRESSION: 1. Small to moderate-sized sliding-type hiatal hernia with recurrent gastroesop hageal reflux with provocative maneuvers.
--- OUTSIDE RECORDS SUMMARY | 2025-04-15 10:30 | XMS_ITS | Clinical Summary ---
Author Organization [facility] Address [address] [place] [address] Care Team Providers Care Window Systems Administrator Name Role Phone Kaleb Engel MD Primary Care Provider [phone] Source Comments [facility],non-owned Affiliates and Associated Physician Practices is amultiple site organization consisting of ambulatory clinics and hospital sitesin [place], [place], [place] and [place]. This disclosure is being madepursuant to the Care Everywhere program and may not contain all information available regarding this patient. Last updated 18.[facility] Allergies No known active allergies Medications * [...] on file Legal Sex Female 8:51 AM IMMUNOPATHOLOGIST Gender Identity Not on file Sexual Orientation Not on file Last Filed Vital Signs Vital Sign Reading Time Taken Comments Blood Pressure 114/80 11/10/2016 9:08 AM IMMUNOPATHOLOGIST Pulse 80 11/10/2016 9:08 AM IMMUNOPATHOLOGIST Temperature 36.9 C (98.4 F) 11/10/2016 9:08 AM IMMUNOPATHOLOGIST Respiratory Rate 16 11/10/2016 9:08 AM IMMUNOPATHOLOGIST Oxygen Saturation - - Inhaled Oxygen Concentration - - Weight 61.2 kg (135 lb) 11/10/2016 9:08 AM IMMUNOPATHOLOGIST Height 154.9 cm (5' 1) 11/10/2016 9:08 AM IMMUNOPATHOLOGIST Body Mass Index 25.51 11/10/2016 9:08 AM IMMUNOPATHOLOGIST Plan of Treatment Health Maintenance Due Date [...] to complete this topic Insurance MEDICARE MEDICARE [facility] MANAGED MEDICARE [facility] Care Teams Window Systems Administrator Relationship Specialty Start Date End Date Kaleb Engel MD PCP - General 01/18/21
--- OUTSIDE RECORDS SUMMARY | 2025-04-15 10:30 | XMS_ITS | Continuity of Care Document ---
Author Organization [facility] Address [address] [place] [address] Phone Care Team Providers Care Mail Processing Machine Operator Name Role Phone Encinas OD, Jhonny Unavailable Unavailable Procedures Procedure Date Contact Lens Hydrophilic, Spherical Sales Tax Contact Lens Hydrophilic, Spherical Medical Tax Eye Exam & Treatment Refraction Eye Exam Established Pt Contact Lens Hydrophilic, Spherical [employer] [facility] Eye Exam Established Pt Eye Exam & Treatment Refraction CL Replacement - [employer] Other 009 Tax - Medical CL Replacement - [employer] Disp W/BW Soft [employer] [facility] CL Replacement - [employer] Disp W/BW Soft [facility] CL Replacement - [employer] Disp W/BW Soft [employer] [facility] Eye Exam & Treatment Refraction CL Replacement - [employer] Disp W/BW Soft [employer] [facility] CL Replacement - [employer] Disp W/BW Soft [employer] [facility] CL Replacement - [employer] Disp W/BW Soft [employer] Eye Exam & Treatment CL Replacement - [employer] Disp W/BW Soft Tax - Medical Advance Directives Directive Yes / No Effective Date File Name No Information Encounters Encounter Description Practice Location Reason(s) For Visit Diagnoses Date Provider Providers Copied on Encounter [facility], [address] [place] [address] [address], [place], [place], [id number], tel:[phone] [facility] No Information Nov-1 8-201 0 Encinas OD Jhonny. [address] [facility] [address] , [address], [place], [place], [facility], [place]. tel:[phone] [facility], [address] [place] [address] [address], [place], [place], [id number], tel:[phone] SEC [facility] No Information Aug-0 3-201 0 Encinas OD Jhonny. [address] [facility], [place], [place], [facility], . tel:[phone] [facility], [address] [place] [address] [address], [place], [place], [id number], tel:[phone] [facility] [place] No Information Earle-0 6-201 0 Encinas OD Jhonny. [address] [facility] [address], [place], [place], [facility], [place]. tel:[phone] [facility], [address] [place] [address] [address], [place], [place], [address], tel:[phone] [facility] [place] No Information Mar-0 3-201 0 Encinas OD Jhonny. [address] [facility], [place], [facility], [place]. tel:[phone] [facility], [address] [place] [address] [address], [place], [place], [address], tel:[phone] [facility] [place] No Information Feb-0 1-201 0 Encinas OD Jhonny. [address] [facility] [address], [address], [place], [place], [facility], [place]. tel:[phone] [facility], [address], [place], [place], [address], [place] tel:[phone] SEC [facility] No Information Apr-2 9-200 9 Encinas OD Jhonny. [address] , [address], [place], [place], [facility], [place]. tel:[phone] [facility], [address] [place] [address] [address], [place], [place], [address], [place] tel:[phone] SEC [facility] No Information Kyrie-0 3-200 9 Encinas OD Jhonny. [address] , [address], [place], [facility], [place]. tel:[phone] [facility], [address] [place] [address] [address], [place], [place], [address], [place] tel:[phone] SEC [facility] No Information Oct-2 7-200 9 Encinas OD Jhonny. [address] , [address], [place], [facility], [place]. tel:[phone] [facility], [address] [place] [address] [address], [place], [place], [address], [place] tel:[phone] [facility] No Information Aug-2 6-200 8 Encinas OD Jhonny. [address] , [address], [place], [facility], [place]. tel:[phone] [facility], [address] [place] [address] [address], [place], [place], [address], [place] tel:[phone] SEC [facility] No Information Apr-2 5-200 8 Encinas OD Jhonny. [address] , [address], [place], [address], [place]. tel:[phone] [facility], [address] [place] [address] [address], [place], [place], [address], tel:[phone] [facility] No Information Apr-2 3-200 8 Encinas OD Jhonny. [address] [place], [place] [address]ate Center , [address], [place], [address], . tel:[phone] [facility], [address] [place] [address] [address], [place], [place], [address], tel:[phone] [facility] No Information Malick-2 9-200 8 Encinas OD Jhonny. [facility] , [address], [place], [address], . tel:[phone] [facility], [address] [place] [address] [address], [place], [place], [address], tel:[phone] [facility] [place] No Information Sep-2 7-200 7 Encinas OD Jhonny. [address] [place], [place] [address]ate [address], [address], [place], [facility], [place]. tel:[phone] [facility], [address] [place] [address] [address], [place], [place], [address], tel:[phone] [facility] [place] No Information Mar-0 9-200 7 Encinas OD Jhonny. [address] [place], [place] [address]ate [address], [address], [place], [address], . tel:[phone] Family History Family Member Type Diagnosis Age [...]
--- OUTSIDE RECORDS SUMMARY | 2025-04-15 10:30 | XMS_ITS | Clinical Summary ---
Author Organization [facility] Address [address] [place] [address] Care Team Providers Care Credit Review Officer Name Role Phone Juliocesar Leal MD Primary [...] Data STL ABSTRACTION Provider, Abstract 03/12/2025 Abstract [facility] - [place] [address] [place] [address] Lex Ferguson MD 02/24/2025 External Device Data STL ABSTRACTION Provider, Abstract 02/24/2025 External Device Data STL ABSTRACTION Provider, Abstract 02/24/2025 External Device Data STL ABSTRACTION Provider, Abstract 02/18/2025 Orders Only [facility] - [place] [address] [place] [address] Lex Ferguson MD 02/17/2025 11:30 AM CDT Office Visit [facility] - [place] [address] [place] [address] Jacqui Pink MD Macrocytosis (Primary Dx); Other secondary thrombocytopenia; Splenomegaly, not elsewhere classified 02/17/2025 Orders Only [facility] - [place] [address] [place] [address] Lex Ferguson MD from Last [...] on file Legal Sex Female 11:05 AM TECHNOLOGY ADMINISTRATOR Gender Identity Not on file Sexual Orientation [...] Description 04/21/2025 11:15 AM CDT Office Visit [facility]ology - [place] [address] [facility] [address] [place] [address] Lex Ferguson MD [address] [facility] [address] [place] [address] Health Maintenance Due Date Last Done Comments DTAP/TDAP/TD VACCINES (1 - Tdap) 1970 BREAST CANCER SCREENING 1991 COLORECTAL SCREENING 1996 Colorectal Cancer Screening 1996 FIT-DNA Q 3 years 1996 FIT/FOBT Q 1 year 1996 Flex Sig/CT Colonography Q 5 years 1996 OSTEOPOROSIS SCREENING 2016 COVID-19 Vaccine (2023-2 5 season) 2024 08/04/2023, 07/10/2022, 08/28/2021, Additional history exists Medicare Advantage ([place]) Preventative Visit/Annual Wellness Visit 10/29/2024 09/06/2023 RSV VACCINE (60+ or ) (1 - [...] Resu lt from Last 3 Months Insurance [facility] [id number] Care Teams Credit Review Officer Relationship Specialty Start Date End Date Juliocesar Leal MD [address] [place] [phone] PCP - General Internal Medicine 12/15/24
--- OUTSIDE RECORDS SUMMARY | 2025-04-15 10:30 | XMS_ITS | CONTINUITY OF CARE DOCUMENT ---
Author Name paolo boone Address Unknown Organization [facility] Address [address] [place] [address] Phone [phone] Care Team Providers Care Quality Assurance Monitor Chassis Name Role Phone Dao ENGLE, Rosangela Unavailable ROSIE TOLENTINO MD Unavailable ROSIE TOLENTINO MD Unavailable PROBLEMS Condition Status Date Provider Notes Cardiology examination active Gene norwood MD Family History of Hypertension: active Kirsty Tineo MD GERD active Gene Tineo MD Preoperative cardiovascular examination completed - Roscoe Kam Arthritis, L knee active Fei Kyte Diastolic dysfunction--CCS zero, echo ef nl, mild [place], 01/2025 active Roscoe Kam Hyperlipidemia active Rosangela Dc MD ENCOUNTERS Date Type Provider Location Encounter Diag nosis - In-person encounter Office Visit Rosangela Dc MD [place] [facility] Diastolic dysfunction--CCS zero, echo ef nl, mild [place], 01/2025 - In-person encounter Office Visit Rosangela Dc MD [place] [facility] Preoperative cardiovascular examinationDiastolic dysfunction--CCS zero, echo ef nl, mild [place], 01/2025Hyperlipidemia - In-person encounter Office Visit Gene Tineo MD [place] [facility] Cardiology examinationFamily History of Hypertension:GERDArthritis, L [...] Donya irene Dietrich pulse rate 74 /min Christa Luke s oxygen saturation, oximetry 98 % Christa Dietrich blood pressure, cuff size regular Br ielle Dietrich weight E&M 135 [lb_av] [place] Luke s height E&M 61 [in_i] [place] [facility] Body Mass Index (Ratio) 26.07 kg/m2 Aguila n Kyte blood pressure, resting No Brit avelino Block pulse rate 92 /min Anastasia Block oxygen saturation, oximetry 98 % Anastasia Block blood pressure, diastolic 72 mm[Hg] Br ittany Block blood pressure, systolic 122 mm[Hg] Donya rodriguez [facility] height E&M 61 [in_i] [facility] weight E&M 138 [lb_av] [facility] respiratory rate E&M 16 /min Venancio [...] alcohol use, average drinks per day <1 [facility], average drinks per day <1 [facility] Never sm[facility] number of grandchildren Gene Tineo MD social history E&M S moking History: Jordana markham has never smoked. Gene Tineo MD social history reviewed E&M revi ewed - no changes required Gene Tineo MD alcohol use, average drinks per day <1 [facility] alcohol use yes [facility] smoking status Never smoker [facility] FAMILY HISTORY Family Member Condition Father Family History of Di abetes: Mother Family History of Hy pertension: INSURANCE PROVIDERS Payer name Policy type / Coverage type [place] red libertarian ID [employer] MEDICARE ADVANTAGE [address] (HMO POS) Medicare [id number] ADVANCE DIRECTIVES Name Date LIVING WILL ON FILE TREATMENT PLAN Date Name Performer Cardiology Rosangela Dc MD Cardiology:This visi t has been a part of the consistent, comprehensive, and ongoing management of the chronic medical condition(s) listed above for the patient. Rosangela Dc MD Cardiology Rosangela Dc MD Cardiology: O rders: C omplete Echo (97673) C T, Coronary Calcium Score (CPT-29529) Rosangela Dc MD Cardiology: O rders: E KG (CPT-38835) C omplete Echo (17675) C T, Coronary Calcium Score (CPT-21011) Rosangela Dc MD Cardiology:Planned for total kne e replacement. Fei Melendez Cardiology:Continues on Omeprazo le. Fei Melendez Cardiology:Planned f or left knee total replacement. She will undergo echocardiogram as part of risk stratification to evaluate for wall motion abnormalities. If this is normal, she may undergo the procedure at an acceptable level of cardiovascular risk. Fei Melnedez Date Name CT, Coronary Calcium Score Complete Echo Complete Echo HISTORY OF PROCEDURES Procedure Date Procedure Name Provider Procedure Notes S tatus Complex e/m visit add on Rosangela Dc MD completed CT- Coronary CA score Rosangela Dc MD completed EKG Rosangela Dc MD completed EKG Gene Tineo MD complet ed
--- OUTSIDE RECORDS SUMMARY | 2025-04-15 10:31 | XMS_ITS | Data Portability ---
Author Organization [place] [facility], Main Office Address [address] [place] [address] Care Team Providers Care Fuel Agent Name Role Phone CHRIS MOORE Primary Care Provider CHRIS MOORE Referring Provider [phone] Assessment Encounter Date Assessment Date Assessment LastModified [...] Details Appointments Any 15 2024 09:30A M Rosie adkins MD Not available Not available Not available Lab lipid panel, serum 2024 025 [email or web address] [facility] (Lab), [address] [place], [address], 03/10/2025 11:47:04 CBC w/ auto diff [address] (Lab), [address] [place], [address], 03/10/2025 11:47:04 TSH, serum or plasma [address] (Lab), [address] [place], [address], 03/10/2025 11:47:05 CMP, serum or plasma [address] (Lab), [address] [place], [address], 03/10/2025 11:47:05 vitamin D, 25-hydrox y, total, serum [address] (Lab), [address] [place], [address], 03/10/2025 11:47:05 hepatitis panel (A+B+C), acute, serum [address] (Lab), [address] [place], [address], 03/17/2025 09:24:40 gamma-glu tamyl transfera se (ggt), serum [address] (Lab), [address] [place], [address], 03/17/2025 09:24:50 vitamin B12 + folate, serum or blood [address] (Lab), [address] [place], [address], 03/10/2025 11:47:05 lipid panel, serum [address] (Lab), [address] [place], [address], 01/14/2025 09:21:41 CBC w/ auto diff 2024 025 [facility] (Lab), [address] [place], [address], 02/17/2025 15:55:36 TSH, serum or plasma [address] (Lab), [address] [place], [address], 01/14/2025 09:21:58 CMP, serum or plasma 2024 025 [facility] (Lab), [address] [place], [address], 02/17/2025 17:53:44 vitamin D, 25-hydrox y, total, serum [address] (Lab), [address] [place], [address], 01/14/2025 09:22:19 vitamin B12 + folate, serum or blood 2024 025 [facility] (Lab), [address] [place], [address], 02/17/2025 17:53:44 urinalysi s complete, reflex culture [address] (Lab), [address] [place], [address], 08/18/2024 17:19:40 urinalysi s, dipstick 2023 024 [email or web address] [facility] [address], [place], [address], 08/11/2024 17:42:37 lipid panel, serum 2023 024 [facility] (Lab), [address] [place], [address], 11/26/2024 12:39:50 CBC w/ auto diff 2023 024 [facility] (Lab), [address] [place], [address], 11/26/2024 12:39:46 TSH, serum or plasma 2023 024 [facility] (Lab), [address] [place], [address], 11/26/2024 12:39:48 CMP, serum or plasma 2023 024 [facility] (Lab), [address] [place], [address], 11/26/2024 12:39:44 vitamin D, 25-hydrox y, total, serum 2023 024 [facility] (Lab), [address] [place], [address], 11/26/2024 12:39:49 vitamin B12 + folate, serum or blood 2023 024 [facility] (Lab), [address] [place], [address], 11/26/2024 12:39:47 lipid panel, serum 2023 024 [facility] (Lab), [address] [place], [address], 05/29/2024 17:50:49 CBC w/ auto diff 2023 024 [facility] (Lab), [address] [place], [address], 05/29/2024 17:42:20 TSH, serum or plasma 2023 024 [facility] (Lab), [address] [place], [address], 05/29/2024 19:03:17 CMP, serum or plasma 2023 024 [facility] (Lab), [address] [place], [address], 05/29/2024 17:50:55 vitamin D, 25-hydrox y, total, serum [address] (Lab), [address] [place], [address], 06/11/2024 14:31:01 vitamin B12 + folate, serum or blood [address] (Lab), [address] [place], [address], 06/11/2024 14:31:01 Referral hematolog ist referral - Please call patient to schedule an appointme nt. Thank you. 2024 025 RADHIKA Ferguson MD, [address], [place], [address], 03/10/2025 15:05:17 gastroent erologist referral - Please call patient to schedule an appointme nt. Thank you. 2024 025 RADHIKA Yancey MD, [address], [place], [address], 03/10/2025 15:06:28 urologist referral - Please call patient to schedule an appointme nt. Thank you. 2024 025 [email or web address] Chaparro Parnell MD, [address], [place], [address], 03/10/2025 14:49:10 hematolog ist referral 2024 025 MAJO Ferguson MD, [address], [place], [address], 02/18/2025 10:35:00 cardiolog ist referral - Please call patient to schedule an appointme nt. Thank you. 2024 025 [place], [address] , [address], [place], [address], 03/02/2025 16:53:38 gastroent erologist referral 2024 025 [email or web address] Maria L Yancey MD, [address], [place], [address], 12/05/2024 10:58:23 urologist referral - Please call patient to schedule an appointme nt. Thank you. 2024 025 [email or web address] Chaparro Parnell MD, [address], [address], [place], [address], 01/06/2025 09:24:57 gastroent erologist referral 2023 024 [email or web address] Maria L Yancey MD, [address], [place], [address], 03/09/2025 08:55:03 urologist referral 2023 024 [email or web address] 2 Chaparro Parnell MD, [address], [address], [place], [address], 02/09/2025 09:18:32 gastroent erologist referral 2023 024 [email or web address] Maria L Yancey MD, [address], [place], [address], 07/03/2024 09:19:42 urologist referral 2023 024 [email or web address] Chaparro Parnell MD, [address] [place] [address] [address], [place], [address], 01/06/2025 09:24:23 Procedures None recorded. Surgeries None recorded. Imaging MAMMO, screening , digital, bilateral - Please call patient to schedule. Patient prefers [facility] location* * [address] Patient Access Centralized Scheduling, Centralized Scheduling, [address] [facility] [place], [address], 01/07/2025 11:07:08 MAMMO, screening , digital, bilateral [address] ([facility] Scheduling), [address] [place], [address], 08/13/2024 10:52:40 MAMMO, screening , digital, bilateral [address] ([facility] Scheduling), [address] [place], [address], 06/26/2024 09:20:38 DEXA, axial skeleton 2023 024 [facility] ([facility] Scheduling), [address] [place], [address], 06/04/2024 16:18:50 Medication Orders Voquezna 20 mg tablet 2023 024 [id number], [address], [place], [place], [id number], 08/11/2024 17:09:38 Patient TargetsNo targets recorded. Patient InstructionsNo instructions recorded. 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 Thank you. 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 Thank you. Referring Physician: Tika Bailey Medicine, Encounter Date: 12/02/2024 Referring Physician: Rosie Leal Internal Medicine, Encounter Date: 12/02/2024 Urologist Referral for Urina ry incontinence Please call patient to schedule an appointment. Thank you. Referring Physician: Tika aBiley Medicine, Encounter Date: 03/10/2025 Appraiser [employer] Referral for Conde's esophagus Please call patient [...] 6.9 x10'3 /uL 4.2-10 .8 Not Available [facility] (Lab) [address] [place], [address], 05/29/2024 17:42:20 05/29/20 24 05/29/2024 CBC/C OMPLE TE BLD COUNT W/DIF F red blood cells 4.15 x10'6 /uL 3.80-5 .20 Not Available [facility] (Lab) [address] [place], [address], 05/29/2024 17:42:20 05/29/20 24 05/29/2024 CBC/C OMPLE TE BLD COUNT W/DIF F hemoglobin 13.4 g/dL 12.0-1 5.6 Not Available [facility] (Lab) [address] [place], [address], 05/29/2024 17:42:20 05/29/20 24 05/29/2024 CBC/C OMPLE TE BLD COUNT W/DIF F hematocrit 41.9 % 35.7-4 5.7 Not Available [facility] (Lab) [address] [place], [address], 05/29/2024 17:42:20 05/29/20 24 05/29/2024 CBC/C OMPLE TE BLD COUNT W/DIF F mean red cell volume 101.0 fL 82.0-9 9.0 high Not Available [facility] (Lab) [address] [place], [address], 05/29/2024 17:42:20 05/29/20 24 05/29/2024 CBC/C OMPLE TE BLD COUNT W/DIF F mean red cell hemoglobin 32.3 pg 27.0-3 3.0 Not Available [facility] (Lab) [address] [place], [address], 05/29/2024 17:42:20 05/29/20 24 05/29/2024 CBC/C OMPLE TE BLD COUNT W/DIF F mean RBC HGB concentratio n 32.0 g/dL 31.0-3 6.0 Not Available [facility] (Lab) [address] [place], [address], 05/29/2024 17:42:20 05/29/20 24 05/29/2024 CBC/C OMPLE TE BLD COUNT W/DIF F red cell distribution width 13.3 % 11.8-1 5.5 Not Available [facility] (Lab) [address] [place], [address], 05/29/2024 17:42:20 05/29/20 24 05/29/2024 CBC/C OMPLE TE BLD COUNT W/DIF F platelets 152 x10'3 /uL 150-40 0 Not Available [facility] (Lab) [address] [place], [address], 05/29/2024 17:42:20 05/29/20 24 05/29/2024 CBC/C OMPLE TE BLD COUNT W/DIF F neutrophils 54.8 % 39.0-7 2.0 Not Available [facility] (Lab) [address] [place], [address], 05/29/2024 17:42:20 05/29/20 24 05/29/2024 CBC/C OMPLE TE BLD COUNT W/DIF F lymphocytes 28.7 % 16.0-4 7.0 Not Available [facility] (Lab) [address] [place], [address], 05/29/2024 17:42:20 05/29/20 24 05/29/2024 CBC/C OMPLE TE BLD COUNT W/DIF F monocytes 10.6 % 5.0-12 .0 Not Available [facility] (Lab) [address] [place], [address], 05/29/2024 17:42:20 05/29/20 24 05/29/2024 CBC/C OMPLE TE BLD COUNT W/DIF F eosinophils 3.9 % 1.0-7. 0 Not Available [facility] (Lab) [address] [place], [address], 05/29/2024 17:42:20 05/29/20 24 05/29/2024 CBC/C OMPLE TE BLD COUNT W/DIF F basophils 1.7 % 0.0-2. 0 Not Available [facility] (Lab) [address] [place], [address], 05/29/2024 17:42:20 05/29/20 24 05/29/2024 CBC/C OMPLE TE BLD COUNT W/DIF F immature granulocytes 0.3 % 0.00-0 .50 Not Available [facility] (Lab) [address] [place], [address], 05/29/2024 17:42:20 05/29/20 24 05/29/2024 CBC/C OMPLE TE BLD COUNT W/DIF F neutrophils, absolute count 3.78 x10'3 /uL 1.5-8. 0 Not Available [facility] (Lab) [address] [place], [address], 05/29/2024 17:42:20 05/29/20 24 05/29/2024 CBC/C OMPLE TE BLD COUNT W/DIF F lymphocytes, absolute count 1.98 x10'3 /uL 1.07-3 .43 Not Available [facility] (Lab) [address] [place], [address], 05/29/2024 17:42:20 05/29/20 24 05/29/2024 CBC/C OMPLE TE BLD COUNT W/DIF F monocytes, absolute count 0.73 x10'3 /uL 0.29-0 .99 Not Available [facility] (Lab) [address] [place], [address], 05/29/2024 17:42:20 05/29/20 24 05/29/2024 CBC/C OMPLE TE BLD COUNT W/DIF F eosinophils, absolute count 0.27 x10'3 /uL 0.02-0 .53 Not Available [facility] (Lab) [address] [place], [address], 05/29/2024 17:42:20 05/29/20 24 05/29/2024 CBC/C OMPLE TE BLD COUNT W/DIF F basophils, absolute count 0.12 x10'3 /uL 0.01-0 .08 high Not Available [facility] (Lab) [address] [place], [address], 05/29/2024 17:42:20 05/29/20 24 05/29/2024 CBC/C OMPLE TE BLD COUNT W/DIF F immature granulocytes ,absolute 0.02 x10'3 /uL 0.00-0 .05 Not Available [facility] (Lab) [address] [place], [address], 05/29/2024 17:42:20 05/29/20 24 05/29/2024 CBC/C OMPLE TE BLD COUNT W/DIF F nucleated red blood cells 0.0 % -0 Not Available [facility] (Lab) [address] [place], [address], 05/29/2024 17:42:20 05/29/20 24 05/29/2024 CBC/C OMPLE TE BLD COUNT W/DIF F NRBC# 0.00 x10'3 /uL Not Available [facility] (Lab) [address] [place], [address], 05/29/2024 17:42:20 05/29/20 24 05/29/2024 LIPID PANEL cholesterol 218 mg/dL 140-19 9 high NIH KRISTY NSUS RECOM MENDA TION FOR JONATHAN STERO L: ADULT CHILD LOW RISK: <200 <170 BORDE RLINE : <200- 239 ----- HIGH RISK: >240 >200 Not Available [facility] (Lab) [address] [place], [address], 05/29/2024 17:50:49 05/29/20 24 05/29/2024 LIPID PANEL triglyceride s 76 mg/dL 0-150 NIH KRISTY NSUS REPOR T RECOM MENDA TION FOR TRIGL YCERI FERNY: ADULT CHILD LOW RISK: <150 ----- BODER LINE: 150-1 99 ----- HIGH RISK: >200 ----- Not Available [facility] (Lab) [address] [place], [address], 05/29/2024 17:50:49 05/29/20 24 05/29/2024 LIPID PANEL HDL cholesterol 107 mg/dL 40- Not Available [facility] (Lab) [address] [place], [address], 05/29/2024 17:50:49 05/29/20 24 05/29/2024 LIPID PANEL [...] WILL NOT BE REPOR KAPIL. Not Available [facility] (Lab) [address] [place], [address], 05/29/2024 17:50:49 05/29/2005/29/2024 COMPR EHENS BOLIVAR METAB OLIC PANEL sodium 140 mmol/ L 137-14 5 Not Available [facility] (Lab) [address] [place], [address], 05/29/2024 17:50:55 05/29/20 24 05/29/2024 COMPR EHENS BOLIVAR METAB OLIC PANEL potassium 4.3 mmol/ L 3.5-5. 1 Not Available [facility] (Lab) [address] [place], [address], 05/29/2024 17:50:55 05/29/20 24 05/29/2024 COMPR EHENS BOLIVAR METAB OLIC PANEL chloride 107 mmol/ L 98-107 Not Available [facility] (Lab) [address] [place], [address], 05/29/2024 17:50:55 05/29/20 24 05/29/2024 COMPR EHENS BOLIVAR METAB OLIC PANEL carbon dioxide 24 mmol/ L 22-30 Not Available [facility] (Lab) [address] [place], [address], 05/29/2024 17:50:55 05/29/20 24 05/29/2024 COMPR EHENS BOLIVAR METAB OLIC PANEL anion gap 13.3 mmol/ L 14-22 low Not Available [facility] (Lab) [address] [place], [address], 05/29/2024 17:50:55 05/29/20 24 05/29/2024 COMPR EHENS BOLIVAR METAB OLIC PANEL glucose 93 mg/dL 70-99 Not Available [facility] (Lab) [address] [place], [address], 05/29/2024 17:50:55 05/29/20 24 05/29/2024 COMPR EHENS BOLIVAR METAB OLIC PANEL BUN 13 mg/dL 8-19 Not Available [facility] (Lab) [address] [place], [address], 05/29/2024 17:50:55 05/29/20 24 05/29/2024 COMPR EHENS BOLIVAR METAB OLIC PANEL creatinine 0.78 mg/dL 0.66-1 .25 Not Available [facility] (Lab) [address] [place], [address], 05/29/2024 17:50:55 05/29/20 24 05/29/2024 COMPR EHENS BOLIVAR METAB OLIC PANEL GFR >60 Refer ence Range : Reubens ge GFR Healt hy Adult : >60 mL/mi n/1.7 3 m2 Chron ic Kidne y Disea se: 15-60 mL/mi n/1.7 3 m2 Kidne y Failu re: <15/m L/min /1.73 m2 www.n iddk. [facility].g ov The MDRD study equat ion has [...] calcu lator is avail able on the [facility] websi te: https ://meche saleh.abdiel martin.o rg/pr ofess ional s/kdo qi/gf r_cal culat or Not Available [facility] (Lab) [address] [place], [address], 05/29/2024 17:50:55 05/29/20 24 05/29/2024 COMPR EHENS BOLIVAR METAB OLIC PANEL alkaline phosphatase 96 U/L 38-126 Not Available [facility] (Lab) [address] [place], [address], 05/29/2024 17:50:55 05/29/20 24 05/29/2024 COMPR EHENS BOLIVAR METAB OLIC PANEL alanine aminotransfe rase 18 U/L 0-35 Not Available [facility] (Lab) [address] [place], [address], 05/29/2024 17:50:55 05/29/20 24 05/29/2024 COMPR EHENS BOLIVAR METAB OLIC PANEL aspartate aminotransfe rase 30 U/L 15-37 Not Available [facility] (Lab) [address] [place], [address], 05/29/2024 17:50:55 05/29/20 24 05/29/2024 COMPR EHENS BOLIVAR METAB OLIC PANEL bilirubin, total 0.80 mg/dL 0.20-1 .30 Not Available [facility] (Lab) [address] [place], [address], 05/29/2024 17:50:55 05/29/20 24 05/29/2024 COMPR EHENS BOLIVAR METAB OLIC PANEL calcium 9.9 mg/dL 8.4-10 .2 Not Available [facility] (Lab) [address] [place], [address], 05/29/2024 17:50:55 05/29/20 24 05/29/2024 COMPR EHENS BOLIVAR METAB OLIC PANEL total protein 7.9 g/dL 6.3-8. 2 Not Available [facility] (Lab) [address] [place], [address], 05/29/2024 17:50:55 05/29/20 24 05/29/2024 COMPR EHENS BOLIVAR METAB OLIC PANEL albumin 4.6 g/dL 3.0-4. 4 high Not Available [facility] (Lab) [address] [place], [address], 05/29/2024 17:50:55 05/29/20 24 05/29/2024 COMPR EHENS BOLIVAR METAB OLIC PANEL globulin 3.3 g/dL 2.6-4. 2 Not Available [facility] (Lab) [address] [place], [address], 05/29/2024 17:50:55 05/29/20 24 05/29/2024 COMPR EHENS BOLIVAR METAB OLIC PANEL A/G ratio 1.4 ratio 1.0-2. 0 Not Available [facility] (Lab) [address] [place], [address], 05/29/2024 17:50:55 05/29/20 24 05/29/2024 VITAM IN D 25-HY DROXY vd25oh 50.3 NG/mL 30-100 Vitam in D Statu s: Defic ient: <20 ng/mL Insuf ficie nt: 20-29 ng/mL Suffi cient : 30-10 0 ng/mL Not Available [facility] (Lab) [address] [place], [address], 05/29/2024 18:01:12 05/29/20 24 05/29/2024 VITAM IN B12 (KENNETH MARIBEL ) vb12 357 pg/mL 239-93 1 Not Available [facility] (Lab) [address] [place], [address], 05/29/2024 18:47:45 05/29/20 24 05/29/2024 FOLAT E, SERUM /PLAS MA folate 13.1 NG/mL 2.76-2 0.0 Not Available [facility] (Lab) [address] [place], [address], 05/29/2024 18:47:50 05/29/20 24 05/29/2024 TSH W/REF AGATA FT4 TSH with reflex free T4 1.080 uIU/m L 0.465- 4.680 Not Available [facility] (Lab) [address] [place], [address], 05/29/2024 19:03:17 08/11/20 24 08/11/2024 urina lysis , dipst ick Leukocytes (reference range: negative royal/ l) Small Not Available [address], [place], [address], 08/11/2024 17:33:27 08/11/20 24 08/11/2024 urina lysis , dipst ick Nitrite (reference rage: negative mg/dl) positi ve Not Available [address] [place], [address], 08/11/2024 17:33:27 08/11/20 24 08/11/2024 urina lysis , dipst ick Urobilinogen (reference range: 0.2-1 mg/dl) 0.2 Not Available [address], [place], [address], 08/11/2024 17:33:27 08/11/20 24 08/11/2024 urina lysis , dipst ick Protein (reference range: negative mg/dl) Trace Not Available [address] [place], [address], 08/11/2024 17:33:27 08/11/20 24 08/11/2024 urina lysis , dipst ick pH (reference range: 5-7) 6.0 Not Available [address], [place], [address], 08/11/2024 17:33:27 08/11/20 24 08/11/2024 urina lysis , dipst ick Blood (reference range: negative Patrick/ l) Small Not Available [address] [place], [address], 08/11/2024 17:33:27 08/11/20 24 08/11/2024 urina lysis , dipst ick Specific [place] (reference range: 1.005-1.030) 1.005 Not Available [address], [place], [address], 08/11/2024 17:33:27 08/11/2008/11/2024 urina lysis , dipst ick Ketone (reference range: negative mg/dl) Negati ve Not Available [address], [place], [address], 08/11/2024 17:33:27 08/11/2008/11/2024 urina lysis , dipst ick Bilirubin (reference range: negative mg/dl) Negati ve Not Available [address], [place], [address], 08/11/2024 17:33:27 08/11/2008/11/2024 urina lysis , dipst ick Glucose (reference range: negative mg/dl) Negati ve Not Available [address], [place], [address], 08/11/2024 17:33:27 08/11/20 24 08/11/2024 urina lysis , dipst ick Appearance Clear Not Available [address], [place], [address], 08/11/2024 17:33:27 08/11/2008/11/2024 urina lysis , dipst ick Color Pale Yellow Not Available [address], [place], [address], 08/11/2024 17:33:27 11/24/19 25 11/25/2024 LIPID PANEL , STAND NOMI cholesterol, total 146 mg/dL <200 normal Not Available [facility] [address] [place], [address], 11/25/2024 06:38:54 11/24/1911/25/2024 LIPID PANEL , STAND NOMI HDL cholesterol 84 mg/dL > or = 50 normal Not Available [facility] [address] [place], [address], 11/25/2024 06:38:54 11/24/1911/25/2024 LIPID PANEL , STAND NOMI triglyceride s 68 mg/dL <150 normal Not Available [facility] [address], [address], 11/25/2024 06:38:54 11/24/1911/25/2024 LIPID PANEL , STAND [...] 9): 2061- 2068 (http ://ed ucati on.Jeancarlos justcie M-KOPAs. com/f aq/FA Q164) Not Available [place] [address] [place], [address], 11/25/2024 06:38:54 11/24/1911/25/2024 LIPID PANEL , STAND NOMI chol/HDLC ratio 1.7 (calc ) <5.0 normal Not Available [facility] [address] [place], [address], 11/25/2024 06:38:54 11/24/19 25 11/25/2024 LIPID PANEL , STAND NOMI non HDL cholesterol 62 mg/dL _(gary c) <130 normal For patie nts with diabe guille plus 1 major ASCVD risk facto r, treat ing to a non-H DL-C goal of <100 mg/dL (LDL- C of <70 mg/dL ) is davi villafana optio n. Not Available [address], [address], 11/25/2024 06:38:54 11/24/19 25 11/25/2024 COMPR EHENS BOLIVAR METAB OLIC PANEL glucose 97 mg/dL 65-99 normal Fasti ng refer ence inter neelam Not Available [address], [address], 11/25/2024 06:38:55 11/24/19 25 11/25/2024 COMPR EHENS BOLIVAR METAB OLIC PANEL urea nitrogen (BUN) 10 mg/dL 7-25 normal Not Available [address], [address], 11/25/2024 06:38:55 11/24/19 25 11/25/2024 COMPR EHENS BOLIVAR METAB OLIC PANEL creatinine 0.68 mg/dL 0.60-1 .00 normal Not Available [address], [address], 11/25/2024 06:38:55 11/24/19 25 11/25/2024 COMPR EHENS BOLIVAR METAB OLIC PANEL eGFR 92 mL/mi n/1.7 3m2 > or = 60 normal Not Available [address], [address], 11/25/2024 06:38:55 11/24/19 25 11/25/2024 COMPR EHENS BOLIVAR METAB OLIC PANEL BUN/creatini ne ratio SEE NOTE: (calc ) 6-22 Not Repor kapil: BUN and Creat inine are withi n refer ence range . Not Available [address], [address], 11/25/2024 06:38:55 11/24/19 25 11/25/2024 COMPR EHENS BOLIVAR METAB OLIC PANEL sodium 142 mmol/ L 135-14 6 normal Not Available [address], [address], 11/25/2024 06:38:55 11/24/1911/25/2024 COMPR EHENS BOLIVAR METAB OLIC PANEL potassium 4.1 mmol/ L 3.5-5. 3 normal Not Available [address], [address], 11/25/2024 06:38:55 11/24/19 25 11/25/2024 COMPR EHENS BOLIVAR METAB OLIC PANEL chloride 107 mmol/ L 98-110 normal Not Available [address], [address], 11/25/2024 06:38:55 11/24/19 25 11/25/2024 COMPR EHENS BOLIVAR METAB OLIC PANEL carbon dioxide 27 mmol/ L 20-32 normal Not Available [address], [address], 11/25/2024 06:38:55 11/24/19 25 11/25/2024 COMPR EHENS BOLIVAR METAB OLIC PANEL calcium 9.5 mg/dL 8.6-10 .4 normal Not Available [address], [address], 11/25/2024 06:38:55 11/24/19 25 11/25/2024 COMPR EHENS BOLIVAR METAB OLIC PANEL protein, total 6.7 g/dL 6.1-8. 1 normal Not Available [address], [address], 11/25/2024 06:38:55 11/24/19 25 11/25/2024 COMPR EHENS BOLIVAR METAB OLIC PANEL albumin 4.0 g/dL 3.6-5. 1 normal Not Available [address], [id number], 11/25/2024 06:38:55 11/24/19 25 11/25/2024 COMPR EHENS BOLIVAR METAB OLIC PANEL globulin 2.7 g/dL_ (calc ) 1.9-3. 7 normal Not Available [address], [address], 11/25/2024 06:38:55 11/24/19 25 11/25/2024 COMPR EHENS BOLIVAR METAB OLIC PANEL albumin/glob ulin ratio 1.5 (calc ) 1.0-2. 5 normal Not Available [address], [address], 11/25/2024 06:38:55 11/24/19 25 11/25/2024 COMPR EHENS BOLIVAR METAB OLIC PANEL bilirubin, total 0.6 mg/dL 0.2-1. 2 normal Not Available [address], [address], 11/25/2024 06:38:55 11/24/19 25 11/25/2024 COMPR EHENS BOLIVAR METAB OLIC PANEL alkaline phosphatase 72 U/L 37-153 normal Not Available [address], [address], 11/25/2024 06:38:55 11/24/19 25 11/25/2024 COMPR EHENS BOLIVAR METAB OLIC PANEL AST 16 U/L 10-35 normal Not Available [address], [address], 11/25/2024 06:38:55 11/24/19 25 11/25/2024 COMPR EHENS BOLIVAR METAB OLIC PANEL ALT 15 U/L 6-29 normal Not Available [address], [address], 11/25/2024 06:38:55 11/24/1911/25/2024 CBC (INCL UDES DIFF/ PLT) white blood cell count 6.8 thous and/u L 3.8-10 .8 normal Not Available [address], [address], 11/25/2024 06:38:56 11/24/1911/25/2024 CBC (INCL UDES DIFF/ PLT) red blood cell count 3.82 sandi on/uL 3.80-5 .10 normal Not Available [address], [address], 11/25/2024 06:38:56 11/24/1911/25/2024 CBC (INCL UDES DIFF/ PLT) hemoglobin 12.4 g/dL 11.7-1 5.5 normal Not Available [address], [address], 11/25/2024 06:38:56 11/24/1911/25/2024 CBC (INCL UDES DIFF/ PLT) hematocrit 38.5 % 35.0-4 5.0 normal Not Available [address], [address], 11/25/2024 06:38:56 11/24/1911/25/2024 CBC (INCL UDES DIFF/ PLT) MCV 100.8 fL 80.0-1 00.0 high Not Available [address], [address], 11/25/2024 06:38:56 11/24/1911/25/2024 CBC (INCL UDES DIFF/ PLT) MCH 32.5 pg 27.0-3 3.0 normal Not Available [address], [address], 11/25/2024 06:38:56 11/24/1911/25/2024 CBC (INCL UDES DIFF/ [...] gary condi tion. Not Available [facility] [address] [address] [place], [address], 11/25/2024 06:38:56 11/24/1911/25/2024 CBC (INCL UDES DIFF/ PLT) RDW 12.5 % 11.0-1 5.0 normal Not Available [facility] [address], [address], 11/25/2024 06:38:56 11/24/1911/25/2024 CBC (INCL UDES DIFF/ PLT) platelet count 115 thous and/u L 140-40 0 low Not Available [facility] [address], [address], 11/25/2024 06:38:56 11/24/1911/25/2024 CBC (INCL UDES DIFF/ PLT) MPV fL 7.5-12 .5 Due to plate let or RBC varia bilit y in size or shape the resul t canno t be repor kapil accur ately . Not Available [facility] [address] [address] [place], [address], 11/25/2024 06:38:56 11/24/1911/25/2024 CBC (INCL UDES DIFF/ PLT) absolute neutrophils 4352 cells /uL 1500-7 800 normal Not Available [facility] [address], [address], 11/25/2024 06:38:56 11/24/1922 1111/25/2024 CBC (INCL UDES DIFF/ PLT) absolute lymphocytes 1632 cells /uL 850-39 00 normal Not Available [address], [address], 11/25/2024 06:38:56 11/24/19 25 11/25/2024 CBC (INCL UDES DIFF/ PLT) absolute monocytes 408 cells /uL 200-95 0 normal Not Available [facility] [address], [address], 11/25/2024 06:38:56 11/24/1911/25/2024 CBC (INCL UDES DIFF/ PLT) absolute eosinophils 408 cells /uL 15-500 normal Not Available [address], [address], 11/25/2024 06:38:56 11/24/1911/25/2024 CBC (INCL UDES DIFF/ PLT) absolute basophils 0 cells /uL 0-200 normal Not Available [facility] [address], [address], 11/25/2024 06:38:56 11/24/19 25 11/25/2024 CBC (INCL UDES DIFF/ PLT) neutrophils 64 % normal Not Available [facility] [address], [address], 11/25/2024 06:38:56 11/24/19 25 11/25/2024 CBC (INCL UDES DIFF/ PLT) lymphocytes 24 % normal Not Available [facility] [address], [address], 11/25/2024 06:38:56 11/24/19 25 11/25/2024 CBC (INCL UDES DIFF/ PLT) monocytes 6 % normal Not Available [facility] [address], [address], 11/25/2024 06:38:56 11/24/19 25 11/25/2024 CBC (INCL UDES DIFF/ PLT) eosinophils 6 % normal Not Available [address], [address], 11/25/2024 06:38:56 11/24/19 25 11/25/2024 CBC (INCL UDES DIFF/ PLT) basophils 0 % normal Not Available [address], [address], 11/25/2024 06:38:56 11/24/1911/25/2024 VITAM IN B12/F OLATE , SERUM PANEL vitamin B12 973 pg/mL 200-11 00 normal Not Available [address], [address], 11/25/2024 06:38:56 11/24/1911/25/2024 VITAM IN B12/F OLATE , SERUM PANEL folate, serum 12.8 NG/mL normal Refer ence Range Low: <3.4 Borde rline : 3.4-5 .4 Stephanie l: >5.4 Not Available [address], [address], 11/25/2024 06:38:56 11/24/1911/25/2024 TSH TSH 1.49 mIU/L 0.40-4 .50 normal Not Available [address], [address], 11/25/2024 06:38:56 11/24/1911/25/2024 VITAM IN D,25- [place],TO [...] /MS is recom buzz d: order code 07801 (sandoval ents >2yrs ). See Note 1 Note 1 For addit ional infor manuel cobb e refer to http: //[facility] aubrey Farley stDia gnost ics.c om/fa q/FAQ 199 (This link is being provi ded for infor dustin dillard/ educa rangel l purpo ses only. ) Not Available [employer] [address] , [place], [address], 11/25/2024 06:38:57 06/04/20 24 06/04/2024 DEXA, axial skele ton [facility] [address] [place] [address] [phone] Patien t Name: RAINE BLAIR Access ion #: [id number] Sex: F : 1949 7 Dictat [...] WHO criter ia. -1.0: normal Page 1 [facility] [address] [place] [address] Patimo t Name: DIRKJOSEPHINE SAAVEDRA RAINE Caputo Access ion #: [id number] Sex: F : 1949 7 Dictat [...] 2023 15:16: 40 PM Page 2 INTERFACE [facility] (Imaging) [address] [place], [address], 06/04/2024 16:18:50 01/14/20 25 01/09/2025 imagi ng/di agnos tic resul t No observ ation record ed. [facility] [address] [facility] [address], [place], [address], 01/13/2025 14:14:09 02/11/20 25 02/10/2025 imagi ng/di agnos tic resul t No observ ation record ed. [facility] [address] , [place], [address], 02/10/2025 18:05:52 02/11/20 25 02/10/2025 imagi ng/di agnos tic resul t No observ ation record ed. [facility] [address] , [place], [address], 02/10/2025 18:05:59 02/11/20 25 02/10/2025 imagi ng/di agnos tic resul t No observ ation record ed. [facility] [address] [facility] [address], [place], [address], 02/10/2025 18:48:57 02/11/20 25 02/10/2025 imagi ng/di agnos tic resul t No observ ation record ed. [facility] [address] , [place], [address], 02/10/2025 19:00:29 04/06/20 25 04/06/2025 imagi ng/di agnos tic resul t No observ ation record ed. [facility] [address] [facility] [address], [place], [address], 04/06/2025 11:11:08 Result Notes Documentation Provider Name and Address Organization Details Recorded Time Dexa, Axial Skeleton : [facility] [address] [place] [address] Patient Name: ROSARIO DAVILA Sex: F : 1950 Dictated By: Kelby Stephenson Attending Physician: ROSIE LEAL Ordering Physician: ROSIE LEAL Exam Date: 06/04/2024 14:35 PM Exam Name: XR DEXA-HIPS PELVIS SPINE Admitting Diagnosis(es): INDICATION: 73 years old, Female; screening for osteoporosis. post menopausal DEXA SCAN: BONE DENSITY REPORT: AP SPINE (L1-L4) : T Score: 0.3 LEFT HIP TOTAL : T Score: -2.3 RT HIP TOTAL : T Score: -2 TOTAL BILAT HIP AVG: T Score: -2.2 10 YEAR FRACTURE RISK* not reported IMPRESSION: osteopenia bilateral hips --- *FRAX version 3.08. Fracture probability calculated for an untreated patient. Fracture probability may be lower if the patient has received treatment. T-score: comparison by standard deviation (SD) to a young adult population, matched for sex and ethnicity (used for postmenopausal women and men >50 years) and classified by WHO criteria. -1.0: normal Page 1 [id number] Patient Name: ROSARIO DAVILA Sex: F : 1950 Dictated By: Kelby Stephenson Attending Physician: RANDA VELEZ Ordering Physician: ROSIE LEAL Exam Date: 06/04/2024 14:35 PM Exam Name: XR DEXA-HIPS PELVIS SPINE Admitting Diagnosis(es): <-1.0 to >-2.5: osteopenia -2.5: osteoporosis -2.5 plus fragility fracture: severe osteoporosis Z-score: compared by SD to an age, sex, and ethnicity population (used for premenopausal women, men <50 years, and children instead of T-score WHO criteria 4) <-2.0: below expected range/low bone density for age, and a cause should be sought Page 2 Not Available [facility] 06/04/2024 16:18:50 Problems Name Problem SNOMED Code Status Onset Date Resolution Date Notes Provider Name and Address Organization Details Recorded Time Cobalamin deficienc y 285634518 Active 2021 Rehana Dover APRN [address], [place], [address] , [employer] 4 07:47:16 Localized swelling, mass and lump, neck Completed Not Available [facility] 3 06:14:44 Current tear of medial cartilage AND/OR meniscus of knee Active Not Available [facility] 3 06:14:44 Pain in left foot 60980478748 9107 Active 2021 Not Available [facility] 3 06:14:44 Vitamin D deficienc y 80075496 Active 2016 Not Available [facility] 3 06:14:44 Biliary colic 88424217 Completed Not Available [facility] 3 06:14:44 Osteoarth ritis 973970754 Active Rehana Dover APRN [address], [place], [address] , [employer] 4 07:47:31 Dysphagia 25294972 Completed Not Available [facility] 3 06:14:44 Pain of left knee joint 19216777763 4107 Active 2021 Not Available [facility] 3 06:14:44 Foot pain 10117068 Active 2021 Not Available [facility] 3 06:14:44 Hyperlipi demia 61455251 Active Rehana Dover APRN [address], [place], [address] , [employer] 4 07:47:21 Essential hypertens ion 30574783 Completed Not Available [facility] 3 06:14:44 Urinary tract infectiou s disease 53703597 Completed Not Available [facility] 3 06:14:44 Osteoarth ritis of midfoot 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 Active 2021 Not Available [facility] 3 06:14:45 Epigastri c pain 96053042 Active Not Available [facility] 3 06:14:45 Pain in limb 48061464 Active Not Available [facility] 3 06:14:45 Onychomyc osis 089348753 Active 2022 Rehana Dover APRN [address], [place], [address] , [email or web address] [place] [employer] [facility] 4 07:47:23 Thrombocy topenic disorder 750612527 Active 2022 GISELLE Stevenson [address], [place], [address] , [employer] [facility] 3 17:06:57 Urinary incontine nce 078246409 Active 2022 Rehana Dover APRN [address], [place], [address] , [employer] [facility] 4 07:47:36 Conde's esophagus 025040092 Active 2022 Rehana Dover APRN [address], [place], [address] , [employer] [facility] 4 07:47:11 Urinary symptoms 529297517 Active 2022 GISELLE Stevenson [address], [place], [address] , [employer] [facility] 3 17:07:13 Overweigh t 687104568 Active 2022 GISELLE Stevenson [address], [place], [address] , [employer] [facility] 3 17:07:24 Gastroeso phageal reflux disease without esophagit is 234142423 Active 2022 Rehana Dover APRN [address], [place], [address] , [facility] [place] [facility] 4 07:47:18 Pain of left hip joint 18517347018 9100 Active 2022 GISELLE Stevenson [address], [place], [address] , [facility] 3 12:48:04 Eruption 408937387 Active 2022 Kamryn Swati richardson, [facility] 3 16:45:30 Acute urinary tract infection 019239673 Active 2022 Heather richardson, [facility] 3 17:27:06 Diverticu litis 038765981 Active 2023 Rehana Dover APRN [address], [place], [address] , [facility] [place] [facility] 4 12:03:44 Hernia of abdominal cavity 24948470 Active 2023 Rehana Dover APRN [address], [place], [address] , [facility] [place] [facility] 4 12:04:07 Serum vitamin B12 below reference range 363065020 Active 2023 Rosie rhoades MD [address], [place], [address] , [facility] [place] [facility] 4 12:26:00 Liver enzymes level above reference range 489076849 Active 2024 Rosie rhoades MD [address], [place], [address] , [facility] [place] [facility] 5 11:36:59 Problem Notes None recorded. Procedures Surgical History Date Name Laterality Status Provider Name and Address Organization Details Recorded Time 06/10/20 Chronic care management services completed Giovanna Oliver [facility] 06/10/2024 20:36:19 05/12/20 24 Chronic care management services completed Giovanna Oliver [facility] 05/12/2024 13:51:51 04/01/20 24 Chronic care management services completed Giovanna Oliver [facility] 04/01/2024 17:52:11 09/06/20 23 Medicare Wellness CPT Code, subsequent completed Andra Garcia RN [facility] 09/06/2023 13:01:25 03/10/20 20 Knee Replacement completed Not Available [facility] 10/2022 06:08:21 Thyroid Surgery completed Not Available [facility] 12/27/2022 06:08:21 Gallbladder Surgery completed Not Available [facility] 12/27/2022 06:08:21 Partial hysterectomy completed Not Available [facility] 12/27/2022 06:08:21 Imaging Results None recorded. [...] administ ered by the provider 03/25 completed [facility]: 0003-049 02-15 Not Available Not Available Not [...] Not Available Not Available No t Available [place] 10 mg-325 mg tablet Take 1 tablet [...] office by the doctor 08/04 completed NDC: [id number] 001 Not Available Not Available Not Available [...] administ ered by the provider 03/25 completed [facility]: 0409-427 6-17 Not Available Not Available Not Available dexlansop [...] Updated DateTime 5 152.4 cm 26.3 kg/m2 72005.1 7 g 98.2 [degF] 73 /min 98 % 98 % 122 mm[Hg] 68 mm[Hg] Zahira Ramirez MA [facility] [employer] 5 10:39:50 Date Recorded Body height Body mass index (BMI) Body weight Body temperature Heart rate Oxygen saturation Oxygen saturation in Arterial blood by Pulse oximetry Systolic blood pressure Diastolic blood pressure Provider Name and Address Organization Details Last Updated DateTime 5 152.4 cm 26.6 kg/m2 46143.5 6 g 97.9 [degF] 72 /min 99 % 99 % 134 mm[Hg] 70 mm[Hg] BROOKLYN Valdivia [facility] [employer] [facility] 5 11:03:43 Date Recorded Body height Body mass index (BMI) Body weight Body temperature Heart rate Oxygen saturation Oxygen saturation in Arterial blood by Pulse oximetry Systolic blood pressure Diastolic blood pressure Provider Name and Address Organization Details Last Updated DateTime 4 152.4 cm 24.8 kg/m2 56837.2 3 g 97.9 [degF] 82 /min 97 % 97 % 118 mm[Hg] 72 mm[Hg] Zahira Ramirez MA [facility] [employer] [facility] 4 11:58:39 Date Recorded Body height Provider Name an d Address Organization Details Last Updated DateTime 06/09/2024 152.4 cm Giovanna Oliver CCM [facility] [employer] [facility] 06/10/2024 20:33:34 Date Recorded Body height Body mass index (BMI) Body weight Body temperature Heart rate Respiratory rate Oxygen saturation Oxygen saturation in Arterial blood by Pulse oximetry Systolic blood pressure Diastolic blood pressure Provider Name and Address Organization Details Last Updated DateTime 4 152.4 cm 26.6 kg/m2 99001.5 6 g 98.2 [degF] 80 /min 18 /min 98 % 98 % 136 mm[Hg] 72 mm[Hg] Guru Lafleur LPN [facility] [employer] [facility] 17:06:01 Social History Question Answer Notes LastModified by Organization Details LastModified Time Tobacco Smoking Status Never Smoker JHONNY Chatterjee, [facility] [employer] [facility] 09/06/2023 12:11:31 Do You Have An Advance Directive? Yes Living Will On File [id number] Information not available 12/27/2022 Are You Blind Or Do You Have Difficulty Seeing? No [email or web address] Information not available 09/06/2023 What Is Your Level Of Caffeine Consumption? Heavy [id number] Information not available 12/27/2022 How Much Tobacco Do You Chew? None [id number] Information not available 12/27/2022 In The 14 Days Before Symptom Onset, Have You Had Close Contact With A Laboratory-confi rmed COVID-19 While That Case Was Ill? No [email or web address] Information not available 09/06/2023 In The 14 Days Before Symptom Onset, Have You Had Close Contact With A Person Who Is Under Investigation For COVID-19 While That Person Was Ill? No [email or web address] Information not available 09/06/2023 Are You Deaf Or Do You Have Serious Difficulty Hearing? Yes Patient Wears Bilateral Hearing Aids. [email or web address] Information not available 09/06/2023 What Type Of Diet Are You Following? REGULAR [id number] Information not available 12/27/2022 Which Illicit Or Recreational Drugs Have You Used? None [email or web address] Information not available 09/06/2023 What Is The Highest Grade Or Level Of School You Have Completed Or The Highest Degree You Have Received? [id number] Information not available 09/06/2023 Have There Been Any Changes To Your Family Or Social Situation? No [email or web address] Information not available 09/06/2023 What Is The Fluoride Status Of Your Home? Unknown [email or web address] Information not available 09/06/2023 Are There Any Guns Present In Your Home? Yes [email or web address] Information not available 09/06/2023 Do You Use Insect Repellent Routinely? No Information not available 09/06/2023 [facility] [email or web address] Information not available 09/06/2023 Guns Present In The Home? Yes [email or web address] Information not available 09/06/2023 Are You Able To Care For Yourself? Yes [email or web address] Information not available 09/06/2023 Are You Blind Or Do Yo Have Difficulty Seeing? No Information not available 09/06/2023 Are You Deaf Or Do You Have Serious Difficulty Hearing? Yes [email or web address] Information not available 09/06/2023 Live Alone Of With Others? With Others [email or web address] Information not available 09/06/2023 What Was The Date Of Your Most Recent Tobacco Screening? 03/10/2025 Information not available 03/10/2025 How Many Children Do You Have? 2 Information not available 05/29/2024 Do You Have Any Pets? Yes [email or web address] Information not available 09/06/2023 What Is Your Relationship Status? [id number] Information not available 12/27/2022 Do You Use Your Seat Belt Or Car Seat Routinely? Yes [email or web address] Information not available 09/06/2023 Do You Have Smoke And Carbon Monoxide Detectors In Your Home? Yes [email or web address] Information not available 09/06/2023 Are You Passively Exposed To Smoke? No [email or web address] Information not available 09/06/2023 Are There Any Smokers In Your House? No [email or web address] Information not available 09/06/2023 How Much Tobacco Do You Smoke? No [id number] Information not available 12/27/2022 Do You Use Sunscreen Routinely? Yes [email or web address] Information not available 09/06/2023 Has Tobacco Cessation Counseling Been Provided? No N/A [email or web address] Information not available 09/06/2023 Have You Recently Traveled Abroad? No [email or web address] Information not available 09/06/2023 Do You Have Difficulty Walking Or Climbing Stairs? No [email or web address] Information not available 09/06/2023 Do You Have Any Dietary Restrictions? No [email or web address] Information not available 09/06/2023 Sex: Unknown Functional Status Question Answer Note LastModified by Organizat ion Details LastModified Time Do you or have you ever used smokeless tobacco? Never used smokeless tobacco [id number] Information not available 12/27/2022 Are you currently employed? No Information not available 05/29/2024 Do you have transportation difficulties? No [email or web address] Information not available 09/06/2023 Are you able to care for yourself? Yes [email or web address] Information n ot available 09/06/2023 Do you have difficulty dressing or bathing? No [email or web address] Information not available 09/06/2023 Do you or have you ever used e-cigarettes or vape? Never used electronic cigarettes [email or web address] Information not available 09/06/2023 What is your exercise level? Heavy [id number] Information not available 12/27/2022 Do you use any illicit or recreational drugs? No [email or web address] Information not available 09/06/2023 Do you or have you ever used any other forms of tobacco or nicotine? No Information not available 09/06/2023 What is your level of alcohol consumption? Occasional MIGRATION.[id number] Information not available 12/27/2022 Are you able to walk? YESWOREST [email or web address] Information not available 09/06/2023 Do you have difficulty doing errands alone? No [email or web address] Information not available 09/06/2023 What is your occupation? Retired [email or web address] Information not available 09/06/2023 Mental Status Question Answer Note LastModified by Organizat ion Details LastModified Time Do you feel stressed (tense, restless, nervous, or anxious, or unable to sleep at night)? NA3007-0 [email or web address] Information not available 09/06/2023 Do you have difficulty concentrating, remembering or making decisions? No [email or web address] Information no t available 09/06/2023 Family History Relationship Description Onset Age of this Age Resolved Age Notes LastModified by Organization Details LastModified Time Father Family history of malignant neoplasm [email or web address] Not available 12/02 10:33:45 Father Diabetes mellitus [id number] Not available 12/27/2022 06:08:26 Mother Hypertensive disorder [id number] Not available 12/27/2022 06:08:26 Sister Diabetes mellitus [id number] Not available 12/27/2022 06:08:26 Medical History Condition Response ARTHRITIS Y ECZEMA Y DIVERTICULITIS Y GERD/NAUSEA Y Gall Stones Y EAR OR HEARING PROBLEMS Y URINARY/BLADDER/KIDNEY PROBLEMS Y HAVE YOU BEEN HOSPITALIZED OR SEEN IN [facility] IN THE PAST YEAR ? N [...] 3 completed Rehana Dover APRN [address], [place], [address], [employer] [facility] [employer] 03/04/2024 12:08:45 zoster recombinant 3 luly Dover APRN [address], [place], [address], [employer] 03/04/2024 12:08:45 COVID-19, mRNA, LNP-S, bivalent, PF, 50 mcg/0.5 mL or 25mcg/0.25 mL dose 2 completed Rehana Dover APRN [address], [place], [address], [facility] [place] [employer] [facility] 03/04/2024 12:08:45 COVID-19, mRNA, LNP-S, PF, bryson-sucrose, 30 mcg/0.3 mL 3 completed Rehana Dover APRN [address], [place], [address], [facility] [place] [employer] [facility] 03/04/2024 12:08:45 Influenza, high-dose, quadrivalent, PF 3 completed AYO Stevenson-Pee [address], [place], [address], [facility] [place] [employer] [facility] 09/10/2023 09:47:23 COVID-19, mRNA, LNP-S, PF, 100 mcg/0.5mL dose or 50 mcg/0.25mL dose 1 completed Rehana Dover APRN [address], [place], [address], [facility] [place] [employer] [facility] 03/04/2024 12:08:45 COVID-19, mRNA, LNP-S, PF, 100 mcg/0.5mL dose or 50 mcg/0.25mL dose 1 completed Not Available [facility] 12/27/2022 06:20:26 COVID-19, mRNA, LNP-S, PF, 100 mcg/0.5mL dose or 50 mcg/0.25mL dose 1 completed Rehana Dover APRN [address], [place], [address], [facility] [place] [employer] [facility] 03/04/2024 12:08:45 Influenza, split virus, quadrivalent, preservative 0 completed Not Available [facility] 12/27/2022 06:20:26 Influenza, high-dose, quadrivalent, PF 2 completed Not Available [facility] 12/27/2022 06:20:26 Influenza, high-dose, quadrivalent, PF 1 completed Not Available [facility]ly [facility] 12/27/2022 06:20:26 Influenza, high-dose, trivalent, PF 9 completed Not Available [facility] 12/27/2022 06:20:26 Influenza, high-dose, trivalent, PF 8 completed Not Available [facility] 12/27/2022 06:20:26 Influenza, high-dose, trivalent, PF 6 completed Not Available [facility] 12/27/2022 06:20:26 pneumococcal polysaccharide PPV23 6 completed Not Available [facility] 12/27/2022 06:20:26 Influenza, split virus, quadrivalent, preservative 5 completed Not Available [facility] 12/27/2022 06:20:27 Influenza, high-dose, trivalent, PF 7 completed Not Available [facility] 12/27/2022 06:20:27 Pneumococcal conjugate PCV 13 7 completed Not Available [facility] 12/27/2022 06:20:27 Influenza, split virus, trivalent, preservative 4 completed Rehana Dover APRN [address] [facility], [place] [address], [place], [address], [employer] 03/04/2024 12:08:45 Influenza, split virus, trivalent, preservative 3 completed Rehana Dover APRN [address] [facility], [facility] [address], [place], [address], [employer] 03/04/2024 12:08:45 Influenza, high-dose, trivalent, PF 4 completed BROOKLYN Meneses, [employer] 08/26/2024 15:12:44 Past Encounters Encounter ID Performer Location Encounter Start Date Encounter Closed Date Diagnosis/Indication Diagnosis SNOMED-CT Code Diagnosis ICD10 Code Diagnosis Note [id number] Fortunato Turner MD [facility] [address] [place] [address] 01/24/2021 00:00:00 01/24/2021 17:05:50 [id number] MD ANALIA [facility] [address] [place] [address] 02/23/2021 00:00:00 03/06/2021 17:21:53 [id number] MD ANALIA [facility] [address] [place] [address] 03/25/2021 00:00:00 03/25/2021 10:32:16 [id number] MD ANALIA [facility] [place] [address] [facility] [address] [place] [address] 05/09/2021 00:00:00 05/09/2021 13:20:18 [id number] Good Flores MD [facility] Internal Med [facility] [address] [facility], [facility] [place] [address] 06/13/2021 00:00:00 06/13/2021 16:11:57 [id number] Rosie rhoades MD [facility] [place] [address] [facility] [address] [place] [address] 07/15/2021 00:00:00 07/15/2021 17:04:18 [id number] Rosie rhoades MD [facility] Internal Med [address] [place] [address] 08/15/2021 00:00:00 08/15/2021 14:44:20 [id number] MD ANALIA [facility] [place] [address] [facility] [address] [place] [address] 09/16/2021 00:00:00 09/16/2021 15:44:48 [id number] MD ANALIA [facility] [place] [address] [place] [address] 03/28/2022 00:00:00 03/28/2022 14:24:09 [id number] Fortunato Turner MD [facility] [address] [place] [address] 04/26/2022 00:00:00 04/26/2022 10:41:14 [id number] [facility] [address] [place] [address] 06/29/2022 00:00:00 06/29/2022 12:44:32 [id number] [facility] [place] [address] [place] [address] 08/21/2022 00:00:00 08/21/2022 14:57:57 [id number] Rosie rhoades MD [facility] [place] [address] [place] [address] 08/29/2022 00:00:00 08/29/2022 13:36:18 [id number] Rosie rhoades MD [facility] [address] [facility] , [facility] [address] [place] [address] 08/30/2022 00:00:00 08/30/2022 13:04:16 [id number] Rosie rhoades MD [facility] [place] [address] [place] [address] 11/06/2022 00:00:00 11/06/2022 16:23:01 [id number] Rosie rhoades MD [facility] [place] [address] [place] [address] 02/27/2023 12:19:25 02/27/2023 12:51:17 Onychomycosis 439547995 B35.1 now resolved- advised to avoid the gel nails/acry lic nails Hyperlipidemia 63383801 E78.5 mild, working on diet/exerc ise Vitamin D deficiency 347 46998 E55.9 on OTC supplement Cobalamin deficiency 190 877869 E53.8 on monthly injections Thrombocyt openic disorder 663421504 D69.6 mild, continue to monitor- has cbc order for today Urinary incontinence 165 670788 R32 Follows urology- Chaparro Bullockon botox injections Conde's esophagus 3029 79077 K22.70 follows GI- Dr. Mai Blount EGD 12/2020 w/o evidence of Barretts Gastroesop hageal reflux disease without esophagitis 039136732 K21.9 on omeprazole add famotidine prn at hslifestyl e measures discussed to reduce refluxcall office if no improvemen t and we can get her an appt with GI- Dr. Nicole Duran Pain of le ft hip joint 3789886949 02641 M25.552 Get appointmen t with Ortho per her requestShe declines x-rays today-want s to wait until she sees Ortho [id number] Fortunato Turner MD [facility] [address] [place] [address] 04/11/2023 09:14:15 04/12/2023 14:34:43 Pain of left hip joint 1207227025 01079 M25.552 [id number] Fortunato Turner MD [facility] [address] [address] 05/17/2023 14:07:35 05/17/2023 15:07:24 Pain of left hip joint 1660469024 59179 M25.072 [id number] Rosie hroades MD [facility] [address] [place] [address] 09/06/2023 12:10:10 09/06/2023 13:09:50 Hyperlipidemia 61625781 E78.5 mild, working on diet/exerc ise Vitamin D deficiency 347 71768 E55.9 on OTC supplement Cobalamin deficiency 190 569548 E53.8 on monthly injections Thrombocyt openic disorder 325623326 D69.6 mild, continue to monitor Urinary incontinence 165 091159 R32 Follows urology- Chaparro Bullockon botox injections Conde's esophagus 3029 77677 K22.70 follows GI- Dr. Mai Blount EGD 12/2020 w/o evidence of Barretts Gastroesop hageal reflux disease without esophagitis 419177634 K21.9 on omeprazole in AM, famotidine prn at hslifestyl e measures discussed to reduce refluxneed s to get an appt with GI- Dr. Nicole Guthrie precaution s Pain of le ft hip joint 1834855978 72802 M25.552 following ortho- Dr. Bedoya roved after PT Adult heal th examination 959160658 Z00.00 Screening for disorder 401441913 Z13.9 Administra tion of influenza vaccine 97455436 Z23 [id number] Rosie rhoades MD [facility] Internal Med [facility] [address] [place] [address] 03/04/2024 11:52:39 03/04/2024 12:23:23 Hyperlipidemia 37384895 E78.5 Gastroesop hageal reflux disease without esophagitis 659607660 K21.9 Cobalamin deficiency 190 908443 E53.8 Vitamin D deficiency 347 02129 E55.9 [id number] Rosie rhoades MD [facility] Internal Med [facility] [address] [address] 04/01/2024 17:49:18 04/01/2024 18:00:18 Hyperlipidemia 59740483 E78.5 Gastroesop hageal reflux disease without esophagitis 012018594 K21.9 Vitamin D deficiency 347 26665 E55.9 Cobalamin deficiency 190 021948 E53.8 [id number] Rosie rhoades MD [facility] Internal Med [facility] [address] [address] 05/12/2024 13:48:15 07/16/2024 18:31:22 Osteoarthritis 267326645 M19.90 Hyperlipidemia 63774113 E78.5 Diverticulitis 460337393 K57.92 Gastroesop hageal reflux disease without esophagitis 053616726 K21.9 [id number] Rosie rhoades MD [facility] Internal Med [facility] [address] 1 05/29/2024 11:49:30 05/29/2024 12:46:32 Screening - NAD 857841003 Z13.9 C-scope: Dr Davis Mammogram: Get thisDEXA: Get thisPAP: See her OB Dr Hoyos Get yearly flu shotGet Tdap if not doneGet shingrix vaccineCan do COVID 19 vaccine and its vaccineCan do PCV RTC in 3 months, do labs, ER if worse, she is very appreciati ve to this plan of care Hyperlipidemia 73852555 E78.5 Get labs Urinary incontinence 165 836628 R32 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/17/2024 , f/u in w weeks for UA/PVRNow sees Dr Parnell, referred 05/29/2024 , states that she has gotten botox Conde's esophagus 3029 55763 K22.70 EGD 01/17/2021 EGD 04/17/[address] Davis 04/07/2024 Stop omeprazole , changed to dexilant 60mg daily but could not afford this, will start on Voquenza and also refer to Dr Yancey, may need to get fundoplica tion done Pain of le ft hip joint 9439343519 17756 M25.552 Seen by Jose Ruiz 05/17/2023 Screening mammography 24 720742 Z12.31 Screening for osteoporosis 720709522 Z13.820 Serum betsy min B12 below reference range 186037063 R79.89 [id number] Rosie rhoades MD [facility] [address] [address] 06/10/2024 20:31:59 07/17/2024 19:22:29 Gastroesophageal reflux disease without esophagitis 357814470 K21.9 Diverticulitis 871571342 K57.92 Conde's esophagus 3029 75707 K22.70 Hyperlipidemia 32249515 E78.5 [id number] Rosie rhoades MD [facility] Internal Med [facility]ish elizabeth [address] [facility] [place] [address] 08/11/2024 16:56:13 08/11/2024 17:43:02 Screening - NAD 843165522 Z13.9 C-scope: Dr Davis Mammogram: Get this DEXA: 06/04/2024 : Osteopenia , do more ca and vit d PAP: See her OB Dr Hoyos Get yearly flu shotGet Tdap if not doneGet shingrix vaccineCan do COVID 19 vaccine and its vaccineCan do PCV RTC in 3 months, do labs, ER if worse, she is very appreciati ve to this plan of care Hyperlipidemia 64381940 E78.5 On atorvastat in 40mg dailyGet labs Urinary incontinence 165 449040 R32 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/17/2024 , f/u in w weeks for UA/PVRNow sees Dr Parnell, referred 05/29/2024 , states that she has gotten botox Conde's esophagus 3029 84351 K22.70 EGD 01/17/2021 EGD 04/17/[address] Davis 04/07/2024 Stop omeprazole , changed to dexilant 60mg daily but could not afford this, will start on Voquenza and also refer to Dr Yancey, may need to get fundoplica tion done OV 08/11/2024 :On nexium 40mg daily PRNSee GI Pain of le ft hip joint 0919111563 55105 M25.552 Seen by Jose Ruiz 05/17/2023 Screening mammography 24 334425 Z12.31 Screening for osteoporosis 944978457 Z13.820 Serum betsy min B12 below reference range 154689493 R79.89 Acute urin js tract infection 904062244 N39.0 UA: +1 leuk, +1 nitrite, blood traceOn cipro, will finish the courseGet UA Cx and Sx [id number] Rosie rhoades MD [facility] [place] [address] [place] [address] 12/02/2024 10:32:59 12/02/2024 11:46:17 Screening - NAD 725365466 Z13.9 C-scope: Dr Davis Mammogram: Get this DEXA: 06/04/2024 : Osteopenia , do more ca and vit d PAP: See her OB Dr Hoyos Get yearly flu shotGet Tdap if not doneGet shingrix vaccineCan do COVID 19 vaccine and its vaccineCan do PCV RTC in 3 months, do labs, ER if worse, she is very appreciati ve to this plan of care Hyperlipidemia 38869692 E78.5 On atorvastat in 40mg dailyGet labs Urinary incontinence 165 662926 R32 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/17/2024 , f/u in w weeks for UA/PVRNow sees Dr Parnell, referred 05/29/2024 , states that she has gotten botox Conde's esophagus 3029 88611 K22.70 EGD 01/17/2021 EGD 04/17/[address] Davis 04/07/2024 Stop omeprazole , changed to dexilant 60mg daily but could not afford this, will start on Voquenza and also refer to Dr Yancey, may need to get fundoplica tion done Now on nexium 40mg daily PRNSee GI Pain of le ft hip joint 2007021111 57854 M25.552 Seen by Jose Ruiz 05/17/2023 Screening mammography 24 062896 Z12.31 Screening for osteoporosis 813591988 Z13.820 Serum betsy min B12 below reference range 508063505 R79.89 Screening for cardiovascular system disease 455198107 Z13.6 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 Referred to hematology [id number] Rosie rhoades MD [facility] Internal Med [facility] [address] [facility] [address] [place] [address] 03/10/2025 10:49:02 03/10/2025 11:49:11 Screening - NAD 691892092 Z13.9 C-scope: Dr Davis Mammogram: 02/09/2025 : [...] ve to this plan of care Hyperlipidemia 88403283 E78.5 On atorvastat in 40mg dailyGet labs Urinary incontinence 165 269512 R32 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/17/2024 , f/u in w weeks for UA/PVRNow sees Dr Parnell, referred 05/29/2024 , states that she has gotten botox Conde's esophagus 3029 48187 K22.70 EGD 01/17/2021 EGD 04/17/2024 See GI [...] surgery Pain of le ft hip joint 0308553254 08920 M25.552 Seen by Jose Ruiz 05/17/2023 Screening for osteoporosis 990295200 Z13.820 Serum betsy min B12 below reference range 808201342 R79.89 Screening for cardiovascular system disease 242588645 Z13.[address] Dc [facility] last 03/02/2025 , next one year Thrombocyt openic disorder 615656909 D69.[address] Hamilton to get US liver Liver enzy mes level above reference range 194664013 R74.8 Get labsUS liver ordered by hematology [...] Directive Y: Living Will on file Payers Insurance Date Sequence Insurance Name Policy Number Policy Soliman Covered Member ID Soliman Member ID Guarantor Name 03/13/[address] 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, she would like to discuss use of another PPI or med Rosie Leal MD [address] [place] [address], [address], [address], [facility] [email or web address] 05/29/2024 14:15:57 08/11/2024 text/html OV 05/29/2024:Here to establish care Present Hx :GERD Here to discuss GERD issues, she feels well, has had another EGD, and was told that she was to take omeprazole, she feels that the omeprazole has not helped, still has reflux symptoms with burning as well as 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/t the GERD, she would like to discuss use of another PPI or med OV 08/11/2024: Here for her f/u apt, she is still c/o UTI sx is on the cipro, no gross hematuria, no new labs noted Rosie Leal MD [address], [place], [address], [facility] [employer] [facility] 08/11/2024 17:42:58 12/02/2024 text/html OV 05/29/2024:Here to establish care Present Hx :GERD Here to discuss GERD issues, she feels well, has had another EGD, and was told that she was to take omeprazole, she feels that the omeprazole has not helped, still has reflux symptoms with burning as well as 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/t the GERD, she would like to discuss use of another PPI or med OV 08/11/2024: Here for her f/u apt, she is still c/o UTI sx is on the cipro, no gross hematuria, no new labs noted OV 12/02/2024: Here for her f/u apt, she is doing well, has noted now some dysphagia, has seen Dr Bc Leal MD [address], [place], [address], [employer] [facility] [employer] 12/02/2024 18:04:13 03/10/2025 text/html OV 05/29/2024:Here to establish care Present Hx :GERD Here to discuss GERD issues, she feels well, has had another EGD, and was told that she was to take omeprazole, she feels that the omeprazole has not helped, still has reflux symptoms with burning as well as 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
== END 2025-04-15 09:36 | disposition home or self-care (01) ==
PROVIDERS: PCP Internal Medicine; Visit Provider Internal Medicine Gastroenterology
DX: K44.9 Diaphragmatic hernia without obstruction or gangrene (principal)
CPT/HCPCS: 74220